=== PATIENT | male | born 1945 | race Hispanic/Latino ===

== ENCOUNTER 2018-06-02 19:33 | Emergency (ER) | payer OTHER ==
--- OUTSIDE RECORDS SUMMARY | 2018-06-02 19:35 | XMS REPORT ---
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 Problem Osteoarthritis, multiple sites M15.9 Active Problem Glaucoma H40.9 Active Problem Tinea unguium B35.1 Active Assessment Need for TD vaccine Z23 Active Problem Sexual dysfunction R37 Active Problem Hyperglycemia R73.9 Active Assessment Puncture wound of right foot, S91.331A Active initial encounter Problem Hypertension I10 Active Problem Essential hypertriglyceridemia E78.1 Active Medications Medication Code Code Instructions Start End Status Dosage System Date Date Clobetasol [facility] 72018685545 0.05 % Active 1 application Propionate Externally to affected Twice a day area Clotrimazole [facility] 86966092799 1 % Externally Active 1 application Twice a day to affected area Cozaar [facility] 13857694055 100 MG Orally Active 1 tablet Once a day Amlodipine [facility] 05937687412 2.5 MG Orally Feb 03, Active 1 tablet Besylate Once a day at 2018 bedtime Results No Known Results Immunizations Vaccine Administration Date Td Feb 22, 2018 Summary Purpose eClinicalWorks Submission
--- OUTSIDE RECORDS SUMMARY | 2018-06-02 19:35 | XMS REPORT ---
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 Problem Elevated serum globulin level R77.1 Active Problem Psoriasis L40.9 Active Assessment Elevated serum globulin level R77.1 Active Problem Cataract H26.9 Active Assessment Seasonal allergic rhinitis, J30.2 Active unspecified trigger Problem Dermatitis L30.9 Active Problem 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 Problem Osteoarthritis, multiple sites M15.9 Active Problem Glaucoma H40.9 Active Problem Tinea unguium B35.1 Active Assessment Psoriasis L40.9 Active Assessment Hypertension I10 Active Assessment (QFT) 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 Assessment Dermatitis L30.9 Active Problem Sexual dysfunction R37 Active Problem Hyperglycemia R73.9 Active Assessment Essential hypertriglyceridemia E78.1 Active Problem Hypertension I10 Active Problem Essential hypertriglyceridemia E78.1 Active Medications Medication Code Code Instructions Start End Status Dosage System Date Date Clobetasol [facility] 35954753118 0.05 % Active 1 application Propionate Externally to affected Twice a day area Cozaar [facility] 55578008691 100 MG Orally Active 1 tablet Once a day Clotrimazole [facility] 54260055670 1 % Externally Active 1 application Twice a day to affected area Amlodipine [facility] 65660880061 2.5 MG Orally Feb 03, Active 1 tablet Besylate Once a day at 2018 bedtime Results No Known Results Summary Purpose eClinicalWorks Submission
--- NOTE | 2018-06-02 20:56 | RAD REPORT ---
EXAM DESCRIPTION: Nate Donahue (2 Views)06/02/2018 8:31 pm CLINICAL HISTORY: Cough COMPARISON: May 2017 FINDINGS: The lungs appear clear of acute infiltrate. The heart is normal size IMPRESSION: No acute abnormalities displayed
--- NOTE | 2018-06-02 20:57 | EDPHYS ---
Physician Documentation [facility] Name: Socorro Ren Age: 72 yrs Sex: Male : 1945 Arrival Date: 06/02/2018 Time: 19:37 Bed 14 Private MD: Stefanie Gross ED Physician Bryan Truong HPI: 06/02 20:47 This 72 yrs old Male presents to ER via Ambulatory with complaints of Fever, snw Chest Congestion, Cough. 20:47 The patient reports fever, not measured (subjective). Onset: The symptoms/episode snw began/occurred gradually, 1 week(s) ago. Modifying factors: there are no obvious modifying factors. Associated signs and symptoms: Pertinent positives: cough, that is dry. Severity of symptoms: At their worst the symptoms were moderate. The patient has not experienced similar symptoms in the past. It is unknown whether or not the patient has recently seen a physician. Historical: - Allergies: 20:07 No Known Allergies; aj - Home Meds: 20:07 amlodipine 5 mg tab 1 tab once daily [Active]; losartan 50 mg Oral tab 1 tab once daily aj [Active]; - PMHx: 20:07 Hypertension; Glaucoma; aj - PSHx: 20:07 Cholecystectomy; aj - Immunization history:: Adult Immunizations up to date. - Social history:: Smoking status: Patient/guardian denies using tobacco. - Ebola Screening: : Patient negative for fever greater than or equal to 101.5 degrees Fahrenheit, and additional compatible Ebola Virus Disease symptoms Patient denies exposure to infectious person Patient denies travel to an Ebola-affected area in the 21 days before illness onset No symptoms or risks identified at this time. ROS: 20:46 Eyes: Negative for injury, pain, redness, and discharge, ENT: Negative for injury, snw pain, and discharge, Neck: Negative for injury, pain, and swelling, Cardiovascular: Negative for chest pain, palpitations, and edema. 20:46 Abdomen/GI: Negative for abdominal pain, nausea, vomiting, diarrhea, and constipation, Back: Negative for injury and pain, : Negative for injury, bleeding, discharge, and swelling, MS/Extremity: Negative for injury and deformity, Skin: Negative for injury, rash, and discoloration, Neuro: Negative for headache, weakness, numbness, tingling, and seizure, Psych: Negative for depression, anxiety, suicide ideation, homicidal ideation, and hallucinations. 20:46 Constitutional: Positive for fever. 20:46 Respiratory: Positive for cough, with no reported sputum. Exam: 20:45 Head/Face: Normocephalic, atraumatic. Eyes: Pupils equal round and reactive to light, snw extra-ocular motions intact. Lids and lashes normal. Conjunctiva and sclera are non-icteric and not injected. Cornea within normal limits. Periorbital areas with no swelling, redness, or edema. 20:45 Neck: Trachea midline, no thyromegaly or masses palpated, and no cervical lymphadenopathy. Supple, full range of motion without nuchal rigidity, or vertebral point tenderness. No Meningismus. Chest/axilla: Normal chest wall appearance and motion. Nontender with no deformity. No lesions are appreciated. Cardiovascular: Regular rate and rhythm with a normal S1 and S2. No gallops, murmurs, or rubs. Normal PMI, no JVD. No pulse deficits. 20:45 Abdomen/GI: Soft, non-tender, with normal bowel sounds. No distension or tympany. No guarding or rebound. No evidence of tenderness throughout. Back: No spinal tenderness. No costovertebral tenderness. Full range of motion. MS/ Extremity: Pulses equal, no cyanosis. Neurovascular intact. Full, normal range of motion. Neuro: Awake and alert, GCS 15, oriented to person, place, time, and situation. Cranial nerves II-XII grossly intact. Motor strength 5/5 in all extremities. Sensory grossly intact. Cerebellar exam normal. Normal gait. Psych: Awake, alert, with orientation to person, place and time. Behavior, mood, and affect are within normal limits. 20:45 Constitutional: The patient appears alert, awake, uncomfortable. 20:45 ENT: TM's: are normal, Nose: is normal, Mouth: is normal, Voice: is normal. 20:45 Respiratory: the patient does not display signs of respiratory distress, Respirations: normal, Breath sounds: are clear throughout. 20:45 Skin: Appearance: Color: normal in color, Temperature: normal temperature, Moisture: dry. Vital Signs: 20:07 BP 150 / 76; Pulse 91; Resp 19; Temp 98.7(O); Pulse Ox 97% on R/A; Weight 83.46 kg; aj Height 5 ft. 6 in. (167.64 cm); 21:11 BP 156 / 79; Pulse 89; Resp 18 S; Pulse Ox 97% on R/A; cc3 20:07 Body Mass Index 29.70 (83.46 kg, 167.64 cm) aj MDM: 20:24 Patient medically screened. snw 20:51 Data reviewed: vital signs, nurses notes. Data interpreted: Pulse oximetry: on room air snw is 97 %. Interpretation: normal. Counseling: I had a detailed discussion with the patient and/or guardian regarding: the historical points, exam findings, and any diagnostic results supporting the discharge/admit diagnosis, the presence of at least one elevated blood pressure reading (>120/80) during this emergency department visit, lab results, radiology results, the need for outpatient follow up, to return to the emergency department if symptoms worsen or persist or if there are any questions or concerns that arise at home. Special discussion: I have referred the patient to see his PCP for further evaluation of high blood pressure. Based on the history and exam findings, there is no indication for further emergent testing or inpatient evaluation. I discussed with the patient/guardian the need to see the primary care provider for further evaluation of the symptoms. 20:52 ED course: fibrotic changes on X-ray with blunting of costophrenic angle. [facility] 06/02 19:57 Order name: Flu; Complete Time: 20:51 [facility] 06/02 20:05 Order name: Strep; Complete Time: 20:51 06/02 20:08 Order name: Chest Pa And Lat (2 Views) XRAY; Complete Time: 20:58 06/02 20:51 Order name: Throat Culture EDMS Administered Medications: 20:50 Drug: Tussionex Pennkinetic ER 5 ml Route: PO; cc3 21:20 Follow up: Response: No adverse reaction cc3 21:05 Drug: Rocephin (cefTRIAXone) 1 grams Route: IM; Site: right gluteus; cc3 21:20 Follow up: Response: No adverse reaction cc3 Disposition: 06/03 04:08 Co-signature as Attending Physician, Bryan Truong MD. Disposition: 06/02/18 20:56 Discharged to Home. Impression: Fever presenting with conditions classified elsewhere, Bronchitis, not specified as acute or chronic. - Condition is Stable. - Discharge Instructions: Acute Bronchitis, Adult, Fever, Adult, Hypertension, Cough, Adult. - Prescriptions for Levaquin 500 mg Oral Tablet - take 1 tablet by ORAL route once daily for 10 days; 10 tablet. - Medication Reconciliation Form, Thank You Letter, Antibiotic Education, Prescription Opioid Use form. - Follow up: Stefanie Gross MD; When: 2 - 3 days; Reason: Recheck today's complaints, Continuance of care, Re-evaluation by your physician. Follow up: Emergency Department; When: As needed; Reason: Trouble breathing, Worsening of condition. Signatures: Dispatcher [employer] EDBlanche Grace RN RN aj Therrien, Shelly, DERRICK ENGINEER-C DERRICK ENGINEER-Csnw Bryan Truong MD MD gs Cordel, Charlene cc3 Corrections: (The following items were deleted from the chart) 06/02 21:22 20:57 06/02/2018 20:56 Discharged to Home. Impression: Fever presenting with conditions cc3 classified elsewhere; Bronchitis, not specified as acute or chronic. Condition is Stable. Forms are Medication Reconciliation Form, Thank You Letter, Antibiotic Education, Prescription Opioid Use. Follow up: Stefanie Gross; When: 2 - 3 days; Reason: Recheck today's complaints, Continuance of care, Re-evaluation by your physician. Follow up: Emergency Department; When: As needed; Reason: Trouble breathing, Worsening of condition. snw
--- NOTE | 2018-06-02 20:57 | ER ---
Nurse's Notes [facility] Name: Socorro Ren Age: 72 yrs Sex: Male : 1945 Arrival Date: 06/02/2018 Time: 19:37 Bed 14 Private MD: Stefanie Gross Diagnosis: Fever presenting with conditions classified elsewhere;Bronchitis, not specified as acute or chronic Presentation: 06/02 20:04 Presenting complaint: Patient states: Cough and congestion with fever since Wednesday. aj Transition of care: patient was not received from another setting of care. Onset of symptoms was May 28, 2018. 20:04 Method Of Arrival: Ambulatory aj 20:05 Risk Assessment: Do you want to hurt yourself or someone else? Patient reports no aj desire to harm self or others. Initial Sepsis Screen: Does the patient meet any 2 criteria? No. Patient's initial sepsis screen is negative. Does the patient have a suspected source of infection? No. Patient's initial sepsis screen is negative. Care prior to arrival: None. 20:05 Acuity: MAREK 3 aj Triage Assessment: 20:07 General: Appears in no apparent distress. comfortable, Behavior is calm, cooperative, aj appropriate for age. Pain: Denies pain. EENT: Reports nasal congestion nasal discharge. EENT: Reports pain when swallowing. Neuro: Level of Consciousness is awake, alert, obeys commands, Oriented to person, place, time, situation, Appropriate for age. Respiratory: Reports cough that is pain with cough Airway is patent Respiratory effort is even, unlabored, Respiratory pattern is regular, symmetrical. Derm: Skin is intact, is healthy with good turgor, Skin is pink, warm \T\ dry. normal. Historical: - Allergies: 20:07 No Known Allergies; aj - Home Meds: 20:07 amlodipine 5 mg tab 1 tab once daily [Active]; losartan 50 mg Oral tab 1 tab once daily aj [Active]; - PMHx: 20:07 Hypertension; Glaucoma; aj - PSHx: 20:07 Cholecystectomy; aj - Immunization history:: Adult Immunizations up to date. - Social history:: Smoking status: Patient/guardian denies using tobacco. - Ebola Screening: : Patient negative for fever greater than or equal to 101.5 degrees Fahrenheit, and additional compatible Ebola Virus Disease symptoms Patient denies exposure to infectious person Patient denies travel to an Ebola-affected area in the 21 days before illness onset No symptoms or risks identified at this time. Screenin:15 Abuse screen: Denies threats or abuse. Denies injuries from another. Nutritional cc3 screening: No deficits noted. Tuberculosis screening: No symptoms or risk factors identified. Fall Risk Ambulatory Aid- None/Bed Rest/Nurse Assist (0 pts). Gait- Normal/Bed Rest/Wheelchair (0 pts) Mental Status- Oriented to own ability (0 pts). Assessment: 20:15 General: see triage assessment. cc3 21:20 Reassessment: Patient appears in no apparent distress at this time. Patient and/or cc3 family updated on plan of care and expected duration. Pain level reassessed. Patient is alert, oriented x 3, equal unlabored respirations, skin warm/dry/pink. LUCI Cohen discharged the patient home with prescription given. No IV cannula in situ. Patient left ER vitally stable and ambulatory with family. Vital Signs: 20:07 BP 150 / 76; Pulse 91; Resp 19; Temp 98.7(O); Pulse Ox 97% on R/A; Weight 83.46 kg; aj Height 5 ft. 6 in. (167.64 cm); 21:11 BP 156 / 79; Pulse 89; Resp 18 S; Pulse Ox 97% on R/A; cc3 20:07 Body Mass Index 29.70 (83.46 kg, 167.64 cm) aj ED Course: 19:37 Patient arrived in ED. am2 19:37 Stefanie Gross MD is Private Physician. am2 20:05 Triage completed. aj 20:07 Arm band placed on left wrist. Patient placed in waiting room, Patient notified of wait aj time. Labs ordered per protocol. 20:15 Yolie Doe is Primary Nurse. cc3 20:15 Patient has correct armband on for positive identification. Bed in low position. Call cc3 light in reach. Side rails up X 1. Pulse ox on. NIBP on. 20:19 Strep Sent. mw2 20:19 Flu Sent. mw2 20:24 Vicki Meng FNP-C [facility]. snw 20:24 Bryan Truong MD is Attending Physician. snw 20:29 Chest Pa And Lat (2 Views) XRAY Sent. jd3 20:30 Chest Pa And Lat (2 Views) XRAY In Process Unspecified. EDMS 20:52 Throat Culture Sent. jd3 20:56 Stefanie Gross MD is Referral Physician. snw 21:20 No provider procedures requiring assistance completed. Patient did not have IV access cc3 during this emergency room visit. Administered Medications: 20:50 Drug: Tussionex Pennkinetic ER 5 ml Route: PO; cc3 21:20 Follow up: Response: No adverse reaction cc3 21:05 Drug: Rocephin (cefTRIAXone) 1 grams Route: IM; Site: right gluteus; cc3 21:20 Follow up: Response: No adverse reaction cc3 Outcome: 20:56 Discharge ordered by MD. snw 21:20 Discharged to home ambulatory, with family. cc3 21:20 Condition: stable 21:20 Discharge instructions given to patient, family, Instructed on discharge instructions, follow up and referral plans. medication usage, Demonstrated understanding of instructions, follow-up care, medications, Prescriptions given X 1. 21:22 Patient left the ED. cc3 Signatures: Dispatcher [employer] Blanche Wilkes, RN RN Vicki Arana, STOGY MAKER-C STOGY MAKER-Csnw Blanche Gonzales amCristian Gorman RN RN Claudia Parish 2 Yolie Doe cc3
[2018-06-02] MEDS ORDERED: HYDROCODONE/CHLORPHEN 5 ML/OSYR ONE (21:02)
[2018-06-02] MEDS ORDERED: CEFTRIAXONE 1000 MG/VIAL ONE (21:10)
[2018-06-02] MEDS ORDERED: WATER FOR INJ,STERILE 10 ML ONE (21:11)
== END 2018-06-02 21:22 | disposition home or self-care (01) ==
LOC: ER 19:33
DX: J40 Bronchitis, not specified as acute or chronic (principal); I10 Essential (primary) hypertension
CPT/HCPCS: 71046; 87070; 87081; 87804; 96372; 99284

== ENCOUNTER 2019-04-17 10:04 | Emergency (ER) | payer OTHER ==
--- NOTE | 2019-04-17 10:52 | RAD REPORT ---
EXAM DESCRIPTION: RAD - Chest Single View - 04/17/2019 10:36 am CLINICAL HISTORY: COUGH Chest pain. COMPARISON: Chest Pa And Lat (2 Views) dated 06/02/2018; Chest Pa And Lat (2 Views) dated 05/18/2017 ; CHEST SINGLE VIEW dated 02/27/2008 FINDINGS: Portable technique limits examination quality. The lungs are grossly clear. The heart is normal in size. No displaced fractures. IMPRESSION: No acute intrathoracic process suspected.
[2019-04-17 11:23] LABS: Absolute Lymphocytes (CBC) 3.4 K/uL (0.7-4.9); Basophils % 0.5 % (0-1.3); Hematocrit 44.8 % (39.6-49.0); Lymphocytes % 37.5 % (15.3-44.8); RBC Red Blood Cell Count 4.85 M/uL (4.33-5.43)
[2019-04-17 11:31] LABS: Urine Blood TRACE (NEG); Urine Glucose NEGATIVE (NEG); Urine Protein NEGATIVE (NEG); Urine Specific Gravity 1.015 (1.005-1.030)
[2019-04-17 11:31] LABS: ALT/SGPT 25 U/L (12-78); AST/SGOT 12 U/L (15-37); Alkaline Phosphatase 99 U/L (45-117); BUN Blood Urea Nitrogen 9 mg/dL (7-18); Bicarbonate 27 mmol/L (21-32); Bilirubin Direct 0.2 mg/dL (0-0.2); Bilirubin Total 0.9 mg/dL (0.2-1.0); Glucose Level 96 mg/dL (74-106); Lipase 81 U/L (73-393); Magnesium 2.4 mg/dL (1.8-2.4); NT PRO-BNP 16 pg/mL (<125); Potassium 3.7 mmol/L (3.5-5.1); Protein, Total 8.6 g/dL (6.4-8.2); Sodium Level 140 mmol/L (136-145); Troponin (Emerg Dept Use Only) < 0.02 ng/mL (0.0-0.045)
[2019-04-17] MEDS ORDERED: NA CHLORIDE 0.9% 1,000 ML ONE (11:44)
[2019-04-17] MEDS ORDERED: FOLIC ACID 5 MG/ML VIAL ONE (11:44)
[2019-04-17] MEDS ORDERED: ASPIRIN 81 MG CHEWABLE TABLET ONE (11:44)
[2019-04-17 12:12] LABS: Protime INR 1.05
--- NOTE | 2019-04-17 12:34 | RAD REPORT ---
EXAM DESCRIPTION: US - CP - 04/17/2019 12:26 pm CLINICAL HISTORY: DIZZINESS Headache, drowsiness, syncope COMPARISON: No comparisons TECHNIQUE: Real-time sonographic evaluation of both carotid systems was performed. Doppler interroga tion was performed with waveform tracing bilaterally. FINDINGS: Normal high resistance waveforms are noted in both external carotid arteries. The common c arotid arteries and internal carotid arteries show normal low resistance waveforms. Lyfn-rv-clhpyjud soft plaquing is seen in both carotid bulbs. Peak systolic and end diastolic velocit y values and the ICA/CCA ratios are in the non-hemodynamically significant range. Antegrade flow seen in both vertebral arteries. IMPRESSION: Rahz-ro-jdihyvoa soft plaquing is seen in both carotid bulbs. No evidence of a hemodynamically significant stenosis.
--- NOTE | 2019-04-17 13:01 | RAD REPORT ---
EXAM DESCRIPTION: MRI - Brain Wo Cont - 04/17/2019 12:55 pm CLINICAL HISTORY: DIZZINESS, weakness, possible CVA COMPARISON: None. TECHNIQUE: Sagittal T1-weighted images were obtained along with axial PD, heavily T2-weighted and T2 -FLAIR images. Axial DWI and ADC mapping sequences were also obtained along with coronal heavily T2-w eighted images. FINDINGS: No intracranial hemorrhage, mass or acute infarction. There is no edema or shift of midlin e structures. No extra-axial fluid collections. Garza-matter/white matter junction is preserved. Signa l voids are seen as a normal finding in the major intracranial vessels. Patient has mild to moderate atrophy. Ventricles are in proportion to any volume loss. Minimal chroni c ischemic changes seen in the cerebral white matter. Basal ganglia, thalamus and brainstem tissue sp ared any measurable disease. No sella or supra sella abnormality. No globe or orbital content acute finding. Mastoid air cells and paranasal sinuses are clear. IMPRESSION: No infarction or other acute intracranial finding. Atrophy and chronic ischemic changes are present. Ventricles are in proportion.
--- NOTE | 2019-04-17 13:27 | RAD REPORT ---
EXAM DESCRIPTION: CT - Chest For Pe Angio - 04/17/2019 1:03 pm CLINICAL HISTORY: DYSPNEA COMPARISON: Chest Single View dated 04/17/2019 TECHNIQUE: Dynamically enhanced 3 mm thick images of the chest were obtained during administration o f approximately 150mL Isovue 370 IV contrast. Coronal and oblique MIP reconstruction images were gene rated and reviewed. Exam utilizes a protocol to evaluate the pulmonary arterial tree. All CT scans are performed using dose optimization technique as appropriate and may include automated exposure control or mA/KV adjustment according to patient size. FINDINGS: No pulmonary emboli are identified. The aorta as imaged shows no acute or suspicious finding. No pericardial thickening or effusion. A small 5 millimeter nodule is present in the lower right lung field (image 44/97). No specific follo w-up recommendation is made if the patient is considered low risk for cancer. The patient is high ris k, a 12 month follow-up could be performed. No other mass or nodule seen. No acute infiltrate. No ple ural effusion or pleural thickening. No mediastinal or hilar suspicious masses. No chest wall masses or abnormal axillary lymphadenopathy. Disc and bony degenerative change present. No acute bone process. IMPRESSION: No pulmonary emboli identified. A small 5 mm pulmonary nodule is seen in the lower right lung field. Follow-up is considered optional for a low risk patient. For a high cancer risk patient, a 12 month follow-up could be performed.
--- NOTE | 2019-04-17 15:21 | EDPHYS ---
Physician Documentation [facility] Name: Socorro Ren Age: 73 yrs Sex: Male : 1945 Arrival Date: 04/17/2019 Time: 10:07 Bed 23 Private MD: Stefanie Gross ED Physician Sergio Fair HPI: 04/17 11:18 This 73 yrs old Male presents to ER via Ambulatory with complaints of Doesn't julio Feel Right. 11:18 The patient has shortness of breath at rest, with light activity. Onset: The julio symptoms/episode began/occurred 2 day(s) ago. Duration: The symptoms are intermittent, with episodes lasting seconds at a time. The patient's shortness of breath has no apparent modifying factors. The patient or guardian reports chest pain that is located primarily in the none. Onset: 2 day(s) ago. The pain does not radiate. Associated signs and symptoms: The patient has no apparent associated signs or symptoms. Severity of symptoms: At their worst the symptoms were mild in the emergency department the symptoms are unchanged. Historical: - Allergies: 10:13 No Known Allergies; bp - Home Meds: 10:13 amlodipine 5 mg tab 1 tab once daily [Active]; losartan 50 mg Oral tab 1 tab once daily bp [Active]; - PMHx: 10:13 Glaucoma; Hypertension; bp - Immunization history:: Adult Immunizations up to date. - Social history:: Smoking status: Patient/guardian denies using tobacco. - Ebola Screening: : No symptoms or risks identified at this time. - Family history:: not pertinent. ROS: 11:19 Constitutional: Negative for fever, chills, and weight loss, Eyes: Negative for injury, julio pain, redness, and discharge, ENT: Negative for injury, pain, and discharge, Neck: Negative for injury, pain, and swelling, Cardiovascular: Negative for chest pain, palpitations, and edema, Abdomen/GI: Negative for abdominal pain, nausea, vomiting, diarrhea, and constipation, Back: Negative for injury and pain, : Negative for injury, bleeding, discharge, and swelling, MS/Extremity: Negative for injury and deformity, Skin: Negative for injury, rash, and discoloration, Neuro: Negative for headache, weakness, numbness, tingling, and seizure, Psych: Negative for depression, anxiety, suicide ideation, homicidal ideation, and hallucinations, Allergy/Immunology: Negative for hives, rash, and allergies, Endocrine: Negative for neck swelling, polydipsia, polyuria, polyphagia, and marked weight changes, Hematologic/Lymphatic: Negative for swollen nodes, abnormal bleeding, and unusual bruising. 11:19 Respiratory: Positive for shortness of breath, at rest. Exam: 11:19 Constitutional: This is a well developed, well nourished patient who is awake, alert, julio and in no acute distress. Head/Face: Normocephalic, atraumatic. Eyes: Pupils equal round and reactive to light, extra-ocular motions intact. Lids and lashes normal. Conjunctiva and sclera are non-icteric and not injected. Cornea within normal limits. Periorbital areas with no swelling, redness, or edema. ENT: Nares patent. No nasal discharge, no septal abnormalities noted. Tympanic membranes are normal and external auditory canals are clear. Oropharynx with no redness, swelling, or masses, exudates, or evidence of obstruction, uvula midline. Mucous membranes moist. Neck: Trachea midline, no thyromegaly or masses palpated, and no cervical lymphadenopathy. Supple, full range of motion without nuchal rigidity, or vertebral point tenderness. No Meningismus. Chest/axilla: Normal chest wall appearance and motion. Nontender with no deformity. No lesions are appreciated. Cardiovascular: Regular rate and rhythm with a normal S1 and S2. No gallops, murmurs, or rubs. Normal PMI, no JVD. No pulse deficits. Respiratory: Lungs have equal breath sounds bilaterally, clear to auscultation and percussion. No rales, rhonchi or wheezes noted. No increased work of breathing, no retractions or nasal flaring. Abdomen/GI: Soft, non-tender, with normal bowel sounds. No distension or tympany. No guarding or rebound. No evidence of tenderness throughout. Back: No spinal tenderness. No costovertebral tenderness. Full range of motion. Male : Normal genitalia with no discharge or lesions. Skin: Warm, dry with normal turgor. Normal color with no rashes, no lesions, and no evidence of cellulitis. MS/ Extremity: Pulses equal, no cyanosis. Neurovascular intact. Full, normal range of motion. Neuro: Awake and alert, GCS 15, oriented to person, place, time, and situation. Cranial nerves II-XII grossly intact. Motor strength 5/5 in all extremities. Sensory grossly intact. Cerebellar exam normal. Normal gait. Psych: Awake, alert, with orientation to person, place and time. Behavior, mood, and affect are within normal limits. Vital Signs: 10:13 BP 154 / 77; Pulse 85; Resp 18; Temp 97.6; Pulse Ox 99% ; Weight 81.65 kg; bp 11:34 BP 129 / 74; Pulse 81; Resp 18; Pulse Ox 98% on R/A; aj1 12:30 BP 140 / 77; Pulse 71; Resp 18; Pulse Ox 97% on R/A; aj1 13:30 BP 142 / 85; Pulse 82; Resp 18; Pulse Ox 97% on R/A; aj1 14:14 Pulse 72; Resp 18; Pulse Ox 98% on R/A; aj1 15:01 BP 126 / 90; Pulse 81; Resp 16; Temp 97.7(O); Pulse Ox 100% ; lt1 NIH Stroke Scale Scores: 11:19 NIHSS Score: 0 julio MDM: 10:19 Patient medically screened. julio 11:21 Data reviewed: vital signs, nurses notes, lab test result(s), EKG, radiologic studies, julio doppler, MRI, plain films. 04/17 10:20 Order name: Basic Metabolic Panel; Complete Time: 12:18 [facility] 04/17 10:20 Order name: CBC with Diff; Complete Time: 12:18 [facility] 04/17 10:20 Order name: LFT's; Complete Time: 12:18 julio 04/17 10:20 Order name: Magnesium; Complete Time: 12:18 julio 04/17 10:20 Order name: NT PRO-BNP; Complete Time: 12:18 [facility] 04/17 10:20 Order name: PT-INR; Complete Time: 12:18 [facility] 04/17 10:20 Order name: Troponin (emerg Dept Use Only); Complete Time: 12:18 julio 04/17 10:20 Order name: Urine Culture [facility] 04/17 10:20 Order name: Lipase; Complete Time: 12:18 julio 04/17 11:12 Order name: D-Dimer; Complete Time: 12:18 julio 04/17 11:13 Order name: Add On-Lab ss 04/17 11:15 Order name: Urine Dipstick--Ancillary (enter results) 04/17 12:20 Order name: Troponin (emerg Dept Use Only): please at 1pm; Complete Time: 15:19 [facility] 04/17 10:20 Order name: XRAY Chest (1 view); Complete Time: 12:18 [facility] 04/17 10:20 Order name: EKG; Complete Time: 10:21 [facility] 04/17 10:20 Order name: Cardiac monitoring; Complete Time: 10:21 [facility] 04/17 10:20 Order name: EKG - Nurse/Tech; Complete Time: 11:35 [facility] 04/17 10:20 Order name: IV Saline Lock; Complete Time: 11:35 [facility] 04/17 10:20 Order name: Labs collected and sent; Complete Time: 11:36 [facility] 04/17 10:20 Order name: O2 Per Protocol; Complete Time: 10:21 [facility] 04/17 11:22 Order name: US Carotid Artery Bilateral; Complete Time: 13:29 [facility] 04/17 11:30 Order name: Brain Wo Cont; Complete Time: 13:29 EDMS 04/17 12:20 Order name: CT Chest For PE Angio; Complete Time: 13:53 [facility] 04/17 10:20 Order name: O2 Sat Monitoring; Complete Time: 10:21 [facility] 04/17 10:20 Order name: Urine Dipstick-Ancillary (obtain specimen); Complete Time: 11:35 [facility] Administered Medications: 11:52 Drug: NS 0.9% 500 ml Route: IV; Rate: bolus; Site: right forearm; 15:31 Follow up: IV Status: Completed infusion; IV Intake: 500ml 11:52 Drug: Aspirin Chewable Tablet 162 mg Route: PO; 15:31 Follow up: Response: No adverse reaction 11:53 Drug: NS 0.9% 1000 ml Route: IV; Rate: 125 ml/hr; Site: left forearm; 15:30 Follow up: IV Status: Completed infusion; IV Intake: 300ml 11:53 Drug: foLIC Acid 1 mg Route: IVPB; Site: left forearm; 15:31 Follow up: IV Status: Completed infusion; IV Intake: 500ml 15:31 Follow up: IV Status: Completed infusion 13:28 Drug: NS 0.9% 500 ml Route: IV; Rate: bolus; Site: left forearm; aj1 Disposition: 04/17/19 15:20 Discharged to Home. Impression: Dyspnea, Weakness, Solitary pulmonary nodule. - Condition is Stable. - Discharge Instructions: Weakness, Weakness, Noym-kw-Xopy, Aspirin and Your Heart, Pulmonary Nodule, Pulmonary Nodule, [id number]-[id number]. - Prescriptions for Folic Acid 1 mg Oral Tablet - take 1 tablet by ORAL route once daily; 30 tablet. - Medication Reconciliation Form, Thank You Letter, Antibiotic Education, Prescription Opioid Use form. - Follow up: Stefanie Gross; When: 2 - 3 days; Reason: Recheck today's complaints, Continuance of care, Re-evaluation by your physician. - Problem is new. - Symptoms have improved. NIH Stroke Scale - NIH Stroke Score Date: 04/17/2019 Time: 11:19 Total Score = 0 1a. Level of Consciousness (LOC) - 0(Alert) 1b. Level of Consciousness (LOC) (Year \T\ Age) - 0(Both) 1c. LOC Commands (Open \T\ Closes Eyes/Mental Telepathist) - 0(Both) 2. Best Gaze (Lateral Gaze Paresis) - 0(Normal) 3. Visual Field Loss - 0(No visual loss) 4. Facial Palsy - 0(Normal) 5a. Left Arm: Motor (10-second hold) - 0(No drift) 5b. Right Arm: Motor (10-second hold) - 0(No drift) 6a. Left Leg: Motor (5-second hold - always test supine) - 0(No drift) 6b. Right Leg: Motor (5-second hold - always test supine) - 0(No drift) 7. Limb Ataxia (finger/nose \T\ heel/stephens - test with eyes open) - 0(Absent) 8. Sensory Loss (pinprick arms/legs/face) - 0(Normal) 9. Best Language: Aphasia (description/naming/reading) - 0(No aphasia) 10. Dysarthria (speech clarity - read or repeat words) - 0(Normal) 11. Extinction and Inattention (visual/tactile/auditory/spatial/personal) - 0(No abnormality) Initials: julio Signatures: Dispatcher [employer] Cornelia Benoit RN RN aj1 Marv, Sergio, MD MD julio Corrie, Emeka, RN RN bp Corrections: (The following items were deleted from the chart) 11:30 11:23 MR STROKE PROTOCOL+MRI.RAD.AMANDAZ ordered. EDVT EDMS 16:18 15:20 04/17/2019 15:20 Discharged to Home. Impression: Dyspnea; Weakness; aj1 Solitary pulmonary nodule. Condition is Stable. Discharge Instructions: Weakness, Weakness, Howx-hq-Tgso, Aspirin and Your Heart, Pulmonary Nodule, Pulmonary Nodule, Kygy-lj-Dpiy. Prescriptions for Folic Acid 1 mg Oral Tablet - take 1 tablet by ORAL route once daily; 30 tablet. and Forms are Medication Reconciliation Form, Thank You Letter, Antibiotic Education, Prescription Opioid Use. Follow up: Stefanie Gross; When: 2 - 3 days; Reason: Recheck today's complaints, Continuance of care, Re-evaluation by your physician. Problem is new. Symptoms have improved. julio
--- NOTE | 2019-04-17 15:21 | ER ---
Nurse's Notes [facility] Name: Socorro Ren Age: 73 yrs Sex: Male : 1945 Arrival Date: 04/17/2019 Time: 10:07 Bed 23 Private MD: Stefanie Gross Diagnosis: Dyspnea;Weakness;Solitary pulmonary nodule Presentation: 04/17 10:11 Presenting complaint: Patient states: DIZZINESS AND NAUSEA SINCE 0300. Transition of bp care: patient was not received from another setting of care. Onset of symptoms was April 17, 2019 at 03:00. Risk Assessment: Do you want to hurt yourself or someone else? Patient reports no desire to harm self or others. Initial Sepsis Screen: Does the patient meet any 2 criteria? No. Patient's initial sepsis screen is negative. Does the patient have a suspected source of infection? No. Patient's initial sepsis screen is negative. Care prior to arrival: None. 10:11 Method Of Arrival: Ambulatory bp 10:11 Acuity: MAREK 3 bp Historical: - Allergies: 10:13 No Known Allergies; bp - Home Meds: 10:13 amlodipine 5 mg tab 1 tab once daily [Active]; losartan 50 mg Oral tab 1 tab once daily bp [Active]; - PMHx: 10:13 Glaucoma; Hypertension; bp - Immunization history:: Adult Immunizations up to date. - Social history:: Smoking status: Patient/guardian denies using tobacco. - Ebola Screening: : No symptoms or risks identified at this time. - Family history:: not pertinent. Screenin:23 Abuse screen: Denies threats or abuse. Denies injuries from another. Nutritional aj1 screening: No deficits noted. Tuberculosis screening: No symptoms or risk factors identified. 16:17 Fall Risk None identified. aj1 Assessment: 10:23 General: Appears in no apparent distress. comfortable, Behavior is calm, cooperative, aj1 appropriate for age. Pain: Denies pain. Neuro: Level of Consciousness is awake, alert, obeys commands, Oriented to person, place, time, situation, Automation Qa Lead are equal bilaterally Moves all extremities. Full function Gait is steady, Speech is normal, Facial symmetry appears normal, Reports numbness in left arm that occurred at approximately 0300 this morning and has since resolved. Cardiovascular: Reports nausea, shortness of breath, Denies chest pain, Heart tones S1 S2 present Patient's skin is warm and dry. Rhythm is sinus rhythm. Respiratory: Reports shortness of breath that woke him up at 0300 this morning, that has now resolved. Denies SOB at this time. Denies chest pain, denies dizziness Airway is patent Respiratory effort is even, unlabored, Respiratory pattern is regular, symmetrical. GI: No signs and/or symptoms were reported involving the gastrointestinal system. : No signs and/or symptoms were reported regarding the genitourinary system. EENT: No signs and/or symptoms were reported regarding the EENT system. Derm: No signs and/or symptoms reported regarding the dermatologic system. Skin is pink, warm \T\ dry. normal. Musculoskeletal: No signs and/or symptoms reported regarding the musculoskeletal system. Circulation, motion, and sensation intact. 11:34 Reassessment: Patient appears in no apparent distress at this time. No changes from aj1 previously documented assessment. Patient and/or family updated on plan of care and expected duration. Pain level reassessed. Patient is alert, oriented x 3, equal unlabored respirations, skin warm/dry/pink. 12:00 Reassessment: Patient transported to CT. aj1 12:15 Reassessment: Dr. Fair notified of critical lab value. DDIMER 620. ss 12:58 Reassessment: Patient returned to room. aj1 13:00 Reassessment: Patient and/or family updated on plan of care and expected duration. Pain aj1 level reassessed. General: Appears in no apparent distress. comfortable, Behavior is calm, cooperative, appropriate for age. Neuro: Level of Consciousness is awake, alert, obeys commands, Oriented to person, place, time, situation, Speech is normal, Facial symmetry appears normal. Cardiovascular: Heart tones S1 S2 present Patient's skin is warm and dry. Rhythm is sinus rhythm. Respiratory: Airway is patent Respiratory effort is even, unlabored, Respiratory pattern is regular, symmetrical. Derm: No signs and/or symptoms reported regarding the dermatologic system. Skin is pink, warm \T\ dry. normal. Musculoskeletal: No signs and/or symptoms reported regarding the musculoskeletal system. Circulation, motion, and sensation intact. 14:00 Reassessment: Patient appears in no apparent distress at this time. No changes from aj1 previously documented assessment. Patient and/or family updated on plan of care and expected duration. Pain level reassessed. Patient is alert, oriented x 3, equal unlabored respirations, skin warm/dry/pink. 15:14 Reassessment: Patient and/or family updated on plan of care and expected duration. Pain aj1 level reassessed. General: Appears in no apparent distress. comfortable, Behavior is calm, cooperative, appropriate for age. Neuro: Level of Consciousness is awake, alert, obeys commands, Oriented to person, place, time, situation, Automation Qa Lead are equal bilaterally Moves all extremities. Full function Speech is normal, Facial symmetry appears normal. Cardiovascular: Patient's skin is warm and dry. Rhythm is sinus rhythm. Respiratory: Airway is patent Respiratory effort is even, unlabored, Respiratory pattern is regular, symmetrical. Derm: No signs and/or symptoms reported regarding the dermatologic system. Skin is pink, warm \T\ dry. normal. Musculoskeletal: No signs and/or symptoms reported regarding the musculoskeletal system. Circulation, motion, and sensation intact. 16:14 Reassessment: Patient appears in no apparent distress at this time. No changes from aj1 previously documented assessment. Patient and/or family updated on plan of care and expected duration. Pain level reassessed. Patient is alert, oriented x 3, equal unlabored respirations, skin warm/dry/pink. Vital Signs: 10:13 BP 154 / 77; Pulse 85; Resp 18; Temp 97.6; Pulse Ox 99% ; Weight 81.65 kg; bp 11:34 BP 129 / 74; Pulse 81; Resp 18; Pulse Ox 98% on R/A; aj1 12:30 BP 140 / 77; Pulse 71; Resp 18; Pulse Ox 97% on R/A; aj1 13:30 BP 142 / 85; Pulse 82; Resp 18; Pulse Ox 97% on R/A; aj1 14:14 Pulse 72; Resp 18; Pulse Ox 98% on R/A; aj1 15:01 BP 126 / 90; Pulse 81; Resp 16; Temp 97.7(O); Pulse Ox 100% ; lt1 NIH Stroke Scale Scores: 11:19 NIHSS Score: 0 julio ED Course: 10:07 Patient arrived in ED. ag5 10:08 Stefanie Gross MD is Private Physician. ag5 10:12 Triage completed. bp 10:13 Cornelia Brown RN is Primary Nurse. aj1 10:13 Arm band placed on left wrist. bp 10:19 Sergio Fair MD is Attending Physician. julio 10:23 Patient has correct armband on for positive identification. Bed in low position. Call aj1 light in reach. Side rails up X 1. test borer helper on. Pulse ox on. NIBP on. 10:23 No provider procedures requiring assistance completed. aj1 10:36 XRAY Chest (1 view) In Process Unspecified. EDMS 10:36 EKG done, by fresh foods technician. reviewed by Sergio Fair MD. at1 10:55 Initial lab(s) drawn, by pa, sent to lab. Inserted saline lock: 18 gauge in left aj1 forearm, using aseptic technique. Blood collected. 12:26 US Carotid Artery Bilateral In Process Unspecified. EDMS 12:46 Brain Wo Cont In Process Unspecified. EDMS 13:03 CT Chest For PE Angio In Process Unspecified. EDMS 15:20 Stefanie Gross MD is Referral Physician. julio 16:14 IV discontinued, intact, bleeding controlled, No redness/swelling at site. Pressure aj1 dressing applied. Administered Medications: 11:52 Drug: NS 0.9% 500 ml Route: IV; Rate: bolus; Site: right forearm; aj1 15:31 Follow up: IV Status: Completed infusion; IV Intake: 500ml aj1 11:52 Drug: Aspirin Chewable Tablet 162 mg Route: PO; aj1 15:31 Follow up: Response: No adverse reaction aj1 11:53 Drug: NS 0.9% 1000 ml Route: IV; Rate: 125 ml/hr; Site: left forearm; aj1 15:30 Follow up: IV Status: Completed infusion; IV Intake: 300ml aj1 11:53 Drug: foLIC Acid 1 mg Route: IVPB; Site: left forearm; aj1 15:31 Follow up: IV Status: Completed infusion; IV Intake: 500ml aj1 15:31 Follow up: IV Status: Completed infusion aj1 13:28 Drug: NS 0.9% 500 ml Route: IV; Rate: bolus; Site: left forearm; aj1 Intake: 15:30 IV: 300ml; Total: 300ml. aj1 15:31 IV: 500ml; Total: 800ml. aj1 15:31 IV: 500ml; Total: 1300ml. aj1 Outcome: 15:20 Discharge ordered by . julio 16:17 Discharged to home ambulatory. aj1 16:17 Condition: good 16:17 Discharge instructions given to patient, family, Instructed on discharge instructions, follow up and referral plans. medication usage, Demonstrated understanding of instructions, follow-up care, medications, Prescriptions given X 1. 16:18 Patient left the ED. aj1 NIH Stroke Scale - NIH Stroke Score Date: 04/17/2019 Time: 11:19 Total Score = 0 1a. Level of Consciousness (LOC) - 0(Alert) 1b. Level of Consciousness (LOC) (Year \T\ Age) - 0(Both) 1c. LOC Commands (Open \T\ Closes Eyes/Spice Miller) - 0(Both) 2. Best Gaze (Lateral Gaze Paresis) - 0(Normal) 3. Visual Field Loss - 0(No visual loss) 4. Facial Palsy - 0(Normal) 5a. Left Arm: Motor (10-second hold) - 0(No drift) 5b. Right Arm: Motor (10-second hold) - 0(No drift) 6a. Left Leg: Motor (5-second hold - always test supine) - 0(No drift) 6b. Right Leg: Motor (5-second hold - always test supine) - 0(No drift) 7. Limb Ataxia (finger/nose \T\ heel/stephens - test with eyes open) - 0(Absent) 8. Sensory Loss (pinprick arms/legs/face) - 0(Normal) 9. Best Language: Aphasia (description/naming/reading) - 0(No aphasia) 10. Dysarthria (speech clarity - read or repeat words) - 0(Normal) 11. Extinction and Inattention (visual/tactile/auditory/spatial/personal) - 0(No abnormality) Initials: julio Signatures: Dispatcher [employer] EDCornelia Gambino, RN RN Sergio Aleman MD MD cha Smirch, Shelby, RN Blanche Georges, swim instructor EKG Tat1 Emeka Denton RN RN bp [place]askin, Ajare ag5 Darya Dorsey lt1
--- NOTE | 2019-04-17 15:52 | EKG ---
Test Date: 2019-04-17 Test Time: 10:30:18 [place]: DOUG MEASUREMENT RESULTS: Intervals: Rate: 81 OK: 166 QRSD: 86 QT: 378 QTc: 439 [place]: P: 53 OK: 166 QRS: 98 T: 27 INTERPRETIVE STATEMENTS: Sinus rhythm with premature atrial complexes Rightward axis Borderline ECG Compared to ECG 02/26/2008 23:55:12 Atrial premature complex(es) now present Right-axis deviation now present Electronically Signed On 04-17-19 15:50:45 CDT by Bill Pérez
[2019-04-17 16:53] VITALS: BP 126/90; TEMP 97.7; O2SAT 100
== END 2019-04-17 16:18 | disposition home or self-care (01) ==
LOC: ER 10:04
DX: R53.1 Weakness (principal); R91.1 Solitary pulmonary nodule; I10 Essential (primary) hypertension
CPT/HCPCS: 96365; 93005; 87088; 85025; 80048; 36415; 83735; 85610; 85379; 80076; 81003; 84484 ×2; 83690; 83880; 71275; 71045; 93880; 70551; 99285; 96366; Q9967; J7030; 87086

== ENCOUNTER 2022-05-20 20:56 | Emergency (ER) | payer OTHER ==
--- OUTSIDE RECORDS SUMMARY | 2022-05-20 21:00 | XMS REPORT | Continuity of Care Document ---
:1945 Author Organization [facility] t Address 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 [facility] [id number] Primary Problem Comm on osteoarthr Spirit itis, left - [facility] hand [facility] [id number] Elevated Problem Comm on PSA [facility] [id number] Prostate Problem Com wed nodule [facility] [id number] Obesity Problem Commo n (BMI Spirit 30-39.9) [facility] Pure Essential Problem Common hyperglyce hypertrigl Sp anne ridemia yceridemia [facility] [id number] Dermatitis Problem Com mon [facility] Psoriasis Psoriasis Problem Com mon [facility] Glaucoma Glaucoma Problem Commo n [facility] Osteoarthr Osteoarthr Problem C ommon itis of itis, Spirit multiple multiple - [facility] joints sites [facility] Psoriatic Other Problem Common arthropath psoriatic Spi rit y arthropath - [facility] y [facility] Cataract Cataract Problem Commo n Spirit [facility] Sexual Sexual Problem Common dysfunctio dysfunctio Sp anne n n - [facility]I [facility] Tinea Tinea Problem Common unguium unguium [facility] Hypertensi Hypertensi Problem C ommon on on Spirit - CHI [facility] Hyperglyce Hyperglyce Problem C ommon kenyetta kenyetta [facility] [id number] Primary Problem Common osteoarthr Spirit itis of - [facility] left [facility] [id number] Pulmonary Problem Com mon nodule, Spirit right [facility] [id number] Elevated Problem Comm on serum Spirit globulin - [facility] level [facility] [id number] Seasonal Problem Comm on allergic Spirit rhinitis, - [facility] unspecifie [facility] [id number] (QFT) 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 - [facility] reaction [facility] Medical tuberculos Center is [id number] 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 - [facility] carotid [facility] Impotence 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 - [facility]I n) [facility] [id number] Primary Problem Commo n osteoarthr Spirit itis of - [facility] both hips [facility] Allergies, Adverse Reactions, Alerts Allergy Allergy Status Severity Reaction(s) Onset Inactive Treating Comm ents Source Name Type Date Date Clinician 8102 Drug Active Unknown Common allergy [facility] 8349 Drug Active Unknown Common allergy [facility] levoflox levoflox Active nausea Common acin acin [facility] Social History Social Habit Start Date Stop Date Quantity Comments Source History of Tobacco Use Co mmon [facility] Sex Assigned At Com mon [facility] Smoking Status Start Date Stop Date Source Never Smoker Common [facility] Medications Ordered Filled Start Stop Current Ordering Indication Dosage Frequency Signature Comments Components Source Medication Medication Date Date Medication? Clinician (SIG) Name Name Keflex Keflex 2020-0 2020- No [place]iera 1 capsule Co mmon 01-0330 [place] [facility] 00:00: 00:00 - [facility] 00 :00 [facility] Losartan Losartan 2020-0 Yes Kiera 1 tablet Common Potassium Potassium 1-17 [place] S pirit 00:00: - [facility] 00 [facility] Magnesium Magnesium 2020-0 2020- No Kiera 2 tabs Common Oxide -Mg Oxide -Mg 1-17 07-15 [facility] Spirit Supplement Supplement 00:00: 00:00 - [facility]I 00 :00 [facility] [place] Kenalog 2019- No 40mg Common (Triamcinol (Triamcinol 1-22 S pirit one) one) 00:00: - [facility]I 00 [facility] [place] Kenalog 2019-1 No 40mg Common (Triamcinol (Triamcinol 1-22 S pirit one) one) 00:00: - [facility]I 00 [facility] [place] Kenalog 2019- No 40mg Common (Triamcinol (Triamcinol 1-22 S pirit one) one) 00:00: - [facility]I 00 [facility] [place] Kenalog 2019- No 40mg Common (Triamcinol (Triamcinol 1-22 S pirit one) one) 00:00: - [facility]I 00 [facility] [place] Kenalog 2019-1 No 40mg Common (Triamcinol (Triamcinol 1-22 S pirit one) one) 00:00: - [facility]I 00 [facility] [place] Kenalog 2019- No 40mg Common (Triamcinol (Triamcinol 1-22 S pirit one) one) 00:00: - [facility]I 00 [facility] [place] Kenalog 2019- No 40mg Common (Triamcinol (Triamcinol 1-22 S pirit one) one) 00:00: - [facility] 00 [facility] [place] Kenalog 2019-1 No 40mg Common (Triamcinol (Triamcinol 1-22 S pirit one) one) 00:00: - [facility]I 00 [facility] [place] Kenalog 2019-1 No 40mg Common (Triamcinol (Triamcinol 1-22 S pirit one) one) 00:00: - [facility]I 00 [facility] [place] Kenalog 2019- No 40mg Common (Triamcinol (Triamcinol 1-22 S pirit one) one) 00:00: - [facility]I 00 [facility] Kenalog Kenalog 2018-07 No 40mg Common (Triamcinol (Triamcinol 1-22 S pirit one) one) 00:00: - [facility]I 00 [facility] Kenalog Kenalog 2018-07 No 40mg Common (Triamcinol (Triamcinol 1-22 S pirit one) one) 00:00: - [facility]I 00 [facility] Triamcinolo Triamcinolo 2018- Yes Kiera 1 Common ne ne 1-18 [place] applicatio Spiri t Acetonide Acetonide 00:00: n to - C HI 00 affected [facility] Clobetasol Clobetasol Yes Kiera 1 Co mmon Propionate Propionate [place] applicatio Spirit n to - [facility] affected [facility] Amlodipine Amlodipine Yes Kiera 1 tablet Common Besylate Besylate [place] Spi rit [facility] Losartan Losartan Yes Kiera 1 tablet Co mmon Potassium Potassium [facility] Meloxicam Meloxicam Yes Kiera 1 tablet Common Hans Spirit [facility] Folic Acid Folic Acid Yes Kiera 1 tablet Common Hans [facility] Meloxicam Meloxicam No Meloxicam 7.5 MG 7.5 MG 7.5 MG Magnesium Magnesium No QD Magnesium Oxide -Mg Oxide -Mg Oxide -Mg Supplement Supplement Supplement 250 MG 250 MG 250 MG Terbinafine Terbinafine No 1{table QD Terbinafin HCl 250 MG HCl 250 MG t} e HCl 250 MG Folic Acid Folic Acid No 1{table QD Folic Acid 1 MG 1 MG t} 1 MG Losartan Losartan No 1{table QD Losartan Potassium Potassium t} Potassium 100 MG 100 MG 100 MG amLODIPine amLODIPine No amLODIPine Besylate 5 Besylate 5 Besylate 5 MG MG MG Triamcinolo Triamcinolo No 1{appli BID Triamcinol ne ne cation_ one Acetonide Acetonide to_affe Acetonide 0.1 % 0.1 % cted_ar 0.1 % ea} Meloxicam Meloxicam No Meloxicam 7.5 MG 7.5 MG 7.5 MG amLODIPine amLODIPine No 1{table BID amLODIPine Besylate 5 Besylate 5 t} Besylate 5 MG MG MG amLODIPine amLODIPine No 1{table BID amLODIPine Besylate 5 Besylate 5 t} Besylate 5 MG MG MG Triamcinolo Triamcinolo No 1{appli BID Triamcinol ne ne cation_ one Acetonide Acetonide to_affe Acetonide 0.1 % 0.1 % cted_ar 0.1 % ea} Folic Acid Folic Acid No 1{table QD Folic Acid 1 MG 1 MG t} 1 MG Magnesium Magnesium No QD Magnesium Oxide -Mg Oxide -Mg Oxide -Mg Supplement Supplement Supplement 250 MG 250 MG 250 MG amLODIPine amLODIPine No amLODIPine Besylate 5 Besylate 5 Besylate 5 MG MG MG Losartan Losartan No 1{table QD Losartan Potassium Potassium t} Potassium 100 MG 100 MG 100 MG Meloxicam Meloxicam No Meloxicam 7.5 MG 7.5 MG 7.5 MG Terbinafine Terbinafine No 1{table QD Terbinafin HCl 250 MG HCl 250 MG t} e HCl 250 MG Meloxicam Meloxicam No Meloxicam 7.5 MG 7.5 MG 7.5 MG amLODIPine amLODIPine No 1{table BID Besylate 5 Besylate 5 t} MG MG Triamcinolo Triamcinolo No 1{appli BID ne ne cation_ Acetonide Acetonide to_affe 0.1 % 0.1 % cted_ar ea} Folic Acid Folic Acid No 1{table QD 1 MG 1 MG t} Magnesium Magnesium No QD Oxide -Mg Oxide -Mg Supplement Supplement 250 MG 250 MG amLODIPine amLODIPine No Besylate 5 Besylate 5 MG MG Losartan Losartan No 1{table QD Potassium Potassium t} 100 MG 100 MG Meloxicam Meloxicam No 7.5 MG 7.5 MG Terbinafine Terbinafine No 1{table QD HCl 250 MG HCl 250 MG t} Meloxicam Meloxicam No 7.5 MG 7.5 MG amLODIPine amLODIPine No 1{table BID amLODIPine Besylate 5 Besylate 5 t} Besylate 5 MG MG MG Triamcinolo Triamcinolo No 1{appli BID Triamcinol ne ne cation_ one Acetonide Acetonide to_affe Acetonide 0.1 % 0.1 % cted_ar 0.1 % ea} Folic Acid Folic Acid No 1{table QD Folic Acid 1 MG 1 MG t} 1 MG Magnesium Magnesium No QD Magnesium Oxide -Mg Oxide -Mg Oxide -Mg Supplement Supplement Supplement 250 MG 250 MG 250 MG amLODIPine amLODIPine No amLODIPine Besylate 5 Besylate 5 Besylate 5 MG MG MG Losartan Losartan No 1{table QD Losartan Potassium Potassium t} Potassium 100 MG 100 MG 100 MG Meloxicam Meloxicam No Meloxicam 7.5 MG 7.5 MG 7.5 MG Terbinafine Terbinafine No 1{table QD Terbinafin HCl 250 MG HCl 250 MG t} e HCl 250 MG Meloxicam Meloxicam No Meloxicam 7.5 MG 7.5 MG 7.5 MG Terbinafine Terbinafine No 1{table QD Terbinafin HCl 250 MG HCl 250 MG t} e HCl 250 MG Triamcinolo Triamcinolo No 1{appli BID Triamcinol ne ne cation_ one Acetonide Acetonide to_affe Acetonide 0.1 % 0.1 % cted_ar 0.1 % ea} Magnesium Magnesium No QD Magnesium Oxide -Mg Oxide -Mg Oxide -Mg Supplement Supplement Supplement 250 MG 250 MG 250 MG Meloxicam Meloxicam No Meloxicam 7.5 MG 7.5 MG 7.5 MG amLODIPine amLODIPine No amLODIPine Besylate 5 Besylate 5 Besylate 5 MG MG MG amLODIPine amLODIPine No 1{table BID amLODIPine Besylate 5 Besylate 5 t} Besylate 5 MG MG MG Folic Acid Folic Acid No 1{table QD Folic Acid 1 MG 1 MG t} 1 MG Losartan Losartan No 1{table QD Losartan Potassium Potassium t} Potassium 100 MG 100 MG 100 MG Meloxicam Meloxicam No Meloxicam 7.5 MG 7.5 MG 7.5 MG amLODIPine amLODIPine No 1{table BID Besylate 5 Besylate 5 t} MG MG Magnesium Magnesium No QD Oxide -Mg Oxide -Mg Supplement Supplement 250 MG 250 MG Triamcinolo Triamcinolo No 1{appli BID ne ne cation_ Acetonide Acetonide to_affe 0.1 % 0.1 % cted_ar ea} Losartan Losartan No 1{table QD Potassium Potassium t} 100 MG 100 MG Folic Acid Folic Acid No 1{table QD 1 MG 1 MG t} Meloxicam Meloxicam No 7.5 MG 7.5 MG Losartan Losartan No 1{table QD Losartan Potassium Potassium t} Potassium 100 MG 100 MG 100 MG Folic Acid Folic Acid No 1{table QD Folic Acid 1 MG 1 MG t} 1 MG Triamcinolo Triamcinolo No 1{appli BID Triamcinol ne ne cation_ one Acetonide Acetonide to_affe Acetonide 0.1 % 0.1 % cted_ar 0.1 % ea} Magnesium Magnesium No QD Magnesium Oxide -Mg Oxide -Mg Oxide -Mg Supplement Supplement Supplement 250 MG 250 MG 250 MG Meloxicam Meloxicam No Meloxicam 7.5 MG 7.5 MG 7.5 MG amLODIPine amLODIPine No 1{table BID amLODIPine Besylate 5 Besylate 5 t} Besylate 5 MG MG MG amLODIPine amLODIPine No amLODIPine Besylate 5 Besylate 5 Besylate 5 MG MG MG Folic Acid Folic Acid No 1{table QD Folic Acid 1 MG 1 MG t} 1 MG Triamcinolo Triamcinolo No 1{appli BID Triamcinol ne ne cation_ one Acetonide Acetonide to_affe Acetonide 0.1 % 0.1 % cted_ar 0.1 % ea} Magnesium Magnesium No QD Magnesium Oxide -Mg Oxide -Mg Oxide -Mg Supplement Supplement Supplement 250 MG 250 MG 250 MG Meloxicam Meloxicam No Meloxicam 7.5 MG 7.5 MG 7.5 MG Losartan Losartan No Losartan Potassium Potassium Potassium 100 MG 100 MG 100 MG Losartan Losartan No Losartan Potassium Potassium Potassium 100 MG 100 MG 100 MG amLODIPine amLODIPine No 1{table BID amLODIPine Besylate 5 Besylate 5 t} Besylate 5 MG MG MG Meloxicam Meloxicam No Meloxicam 7.5 MG 7.5 MG 7.5 MG Folic Acid Folic Acid No 1{table QD Folic Acid 1 MG 1 MG t} 1 MG amLODIPine amLODIPine No amLODIPine Besylate 5 Besylate 5 Besylate 5 MG MG MG Losartan Losartan No 1{table QD Losartan Potassium Potassium t} Potassium 100 MG 100 MG 100 MG Triamcinolo Triamcinolo No 1{appli BID Triamcinol ne ne cation_ one Acetonide Acetonide to_affe Acetonide 0.1 % 0.1 % cted_ar 0.1 % ea} Magnesium Magnesium No QD Magnesium Oxide -Mg Oxide -Mg Oxide -Mg Supplement Supplement Supplement 250 MG 250 MG 250 MG Losartan Losartan No Losartan Potassium Potassium Potassium 100 MG 100 MG 100 MG Folic Acid Folic Acid No 1{table QD Folic Acid 1 MG 1 MG t} 1 MG Magnesium Magnesium No QD Magnesium Oxide -Mg Oxide -Mg Oxide -Mg Supplement Supplement Supplement 250 MG 250 MG 250 MG Triamcinolo Triamcinolo No 1{appli BID Triamcinol ne ne cation_ one Acetonide Acetonide to_affe Acetonide 0.1 % 0.1 % cted_ar 0.1 % ea} amLODIPine amLODIPine No amLODIPine Besylate 5 Besylate 5 Besylate 5 MG MG MG Meloxicam Meloxicam No Meloxicam 7.5 MG 7.5 MG 7.5 MG Losartan Losartan No Losartan Potassium Potassium Potassium 100 MG 100 MG 100 MG Pantoprazol Pantoprazol No 1{table QD Pantoprazo e Sodium 40 e Sodium 40 t} le Sodium MG MG 40 MG amLODIPine amLODIPine No amLODIPine Besylate 5 Besylate 5 Besylate 5 MG MG MG Magnesium Magnesium No QD Magnesium Oxide -Mg Oxide -Mg Oxide -Mg Supplement Supplement Supplement 250 MG 250 MG 250 MG Meloxicam Meloxicam No Meloxicam 7.5 MG 7.5 MG 7.5 MG Folic Acid Folic Acid No 1{table QD Folic Acid 1 MG 1 MG t} 1 MG Triamcinolo Triamcinolo No 1{appli BID Triamcinol ne ne cation_ one Acetonide Acetonide to_affe Acetonide 0.1 % 0.1 % cted_ar 0.1 % ea} Meloxicam Meloxicam No Meloxicam 7.5 MG 7.5 MG 7.5 MG Losartan Losartan No 1{table QD Losartan Potassium Potassium t} Potassium 100 MG 100 MG 100 MG Pantoprazol Pantoprazol No 1{table QD Pantoprazo e Sodium 40 e Sodium 40 t} le Sodium MG MG 40 MG Losartan Losartan No Losartan Potassium Potassium Potassium 100 MG 100 MG 100 MG amLODIPine amLODIPine No 1{table BID amLODIPine Besylate 5 Besylate 5 t} Besylate 5 MG MG MG Folic Acid Folic Acid No 1{table QD Folic Acid 1 MG 1 MG t} 1 MG Magnesium Magnesium No QD Magnesium Oxide -Mg Oxide -Mg Oxide -Mg Supplement Supplement Supplement 250 MG 250 MG 250 MG amLODIPine amLODIPine No amLODIPine Besylate 5 Besylate 5 Besylate 5 MG MG MG Triamcinolo Triamcinolo No 1{appli BID Triamcinol ne ne cation_ one Acetonide Acetonide to_affe Acetonide 0.1 % 0.1 % cted_ar 0.1 % ea} Meloxicam Meloxicam No Meloxicam 7.5 MG 7.5 MG 7.5 MG Losartan Losartan No 1{table QD Losartan Potassium Potassium t} Potassium 100 MG 100 MG 100 MG Pantoprazol Pantoprazol No 1{table QD Pantoprazo e Sodium 40 e Sodium 40 t} le Sodium MG MG 40 MG Losartan Losartan No Losartan Potassium Potassium Potassium 100 MG 100 MG 100 MG amLODIPine amLODIPine No 1{table BID amLODIPine Besylate 5 Besylate 5 t} Besylate 5 MG MG MG Folic Acid Folic Acid No 1{table QD Folic Acid 1 MG 1 MG t} 1 MG Magnesium Magnesium No QD Magnesium Oxide -Mg Oxide -Mg Oxide -Mg Supplement Supplement Supplement 250 MG 250 MG 250 MG amLODIPine amLODIPine No amLODIPine Besylate 5 Besylate 5 Besylate 5 MG MG MG Triamcinolo Triamcinolo No 1{appli BID Triamcinol ne ne cation_ one Acetonide Acetonide to_affe Acetonide 0.1 % 0.1 % cted_ar 0.1 % ea} Meloxicam Meloxicam No Meloxicam 7.5 MG 7.5 MG 7.5 MG Losartan Losartan No 1{table QD Losartan Potassium Potassium t} Potassium 100 MG 100 MG 100 MG Pantoprazol Pantoprazol No 1{table QD Pantoprazo e Sodium 40 e Sodium 40 t} le Sodium MG MG 40 MG Losartan Losartan No Losartan Potassium Potassium Potassium 100 MG 100 MG 100 MG amLODIPine amLODIPine No 1{table BID amLODIPine Besylate 5 Besylate 5 t} Besylate 5 MG MG MG Folic Acid Folic Acid No 1{table QD Folic Acid 1 MG 1 MG t} 1 MG Magnesium Magnesium No QD Magnesium Oxide -Mg Oxide -Mg Oxide -Mg Supplement Supplement Supplement 250 MG 250 MG 250 MG amLODIPine amLODIPine No amLODIPine Besylate 5 Besylate 5 Besylate 5 MG MG MG Triamcinolo Triamcinolo No 1{appli BID Triamcinol ne ne cation_ one Acetonide Acetonide to_affe Acetonide 0.1 % 0.1 % cted_ar 0.1 % ea} Meloxicam Meloxicam No Meloxicam 7.5 MG 7.5 MG 7.5 MG Losartan Losartan No 1{table QD Losartan Potassium Potassium t} Potassium 100 MG 100 MG 100 MG Pantoprazol Pantoprazol No 1{table QD Pantoprazo e Sodium 40 e Sodium 40 t} le Sodium MG MG 40 MG Losartan Losartan No Losartan Potassium Potassium Potassium 100 MG 100 MG 100 MG amLODIPine amLODIPine No 1{table BID amLODIPine Besylate 5 Besylate 5 t} Besylate 5 MG MG MG Folic Acid Folic Acid No 1{table QD Folic Acid 1 MG 1 MG t} 1 MG Magnesium Magnesium No QD Magnesium Oxide -Mg Oxide -Mg Oxide -Mg Supplement Supplement Supplement 250 MG 250 MG 250 MG amLODIPine amLODIPine No amLODIPine Besylate 5 Besylate 5 Besylate 5 MG MG MG Triamcinolo Triamcinolo No 1{appli BID Triamcinol ne ne cation_ one Acetonide Acetonide to_affe Acetonide 0.1 % 0.1 % cted_ar 0.1 % ea} Pantoprazol Pantoprazol No 1{table QD Pantoprazo e Sodium 40 e Sodium 40 t} le Sodium MG MG 40 MG Folic Acid Folic Acid No 1{table QD Folic Acid 1 MG 1 MG t} 1 MG Magnesium Magnesium No QD Magnesium Oxide -Mg Oxide -Mg Oxide -Mg Supplement Supplement Supplement 250 MG 250 MG 250 MG amLODIPine amLODIPine No 1{table BID amLODIPine Besylate 5 Besylate 5 t} Besylate 5 MG MG MG Losartan Losartan No Losartan Potassium Potassium Potassium 100 MG 100 MG 100 MG Losartan Losartan No 1{table QD Losartan Potassium Potassium t} Potassium 100 MG 100 MG 100 MG amLODIPine amLODIPine No amLODIPine Besylate 5 Besylate 5 Besylate 5 MG MG MG Triamcinolo Triamcinolo No 1{appli BID Triamcinol ne ne cation_ one Acetonide Acetonide to_affe Acetonide 0.1 % 0.1 % cted_ar 0.1 % ea} Meloxicam Meloxicam No Meloxicam 7.5 MG 7.5 MG 7.5 MG Pantoprazol Pantoprazol No 1{table QD Pantoprazo e Sodium 40 e Sodium 40 t} le Sodium MG MG 40 MG Folic Acid Folic Acid No 1{table QD Folic Acid 1 MG 1 MG t} 1 MG Magnesium Magnesium No QD Magnesium Oxide -Mg Oxide -Mg Oxide -Mg Supplement Supplement Supplement 250 MG 250 MG 250 MG amLODIPine amLODIPine No 1{table BID amLODIPine Besylate 5 Besylate 5 t} Besylate 5 MG MG MG Losartan Losartan No Losartan Potassium Potassium Potassium 100 MG 100 MG 100 MG Losartan Losartan No 1{table QD Losartan Potassium Potassium t} Potassium 100 MG 100 MG 100 MG amLODIPine amLODIPine No amLODIPine Besylate 5 Besylate 5 Besylate 5 MG MG MG Triamcinolo Triamcinolo No 1{appli BID Triamcinol ne ne cation_ one Acetonide Acetonide to_affe Acetonide 0.1 % 0.1 % cted_ar 0.1 % ea} Meloxicam Meloxicam No Meloxicam 7.5 MG 7.5 MG 7.5 MG Pantoprazol Pantoprazol No 1{table QD Pantoprazo e Sodium 40 e Sodium 40 t} le Sodium MG MG 40 MG Losartan Losartan No Losartan Potassium Potassium Potassium 100 MG 100 MG 100 MG Meloxicam Meloxicam No Meloxicam 7.5 MG 7.5 MG 7.5 MG Triamcinolo Triamcinolo No 1{appli BID Triamcinol ne ne cation_ one Acetonide Acetonide to_affe Acetonide 0.1 % 0.1 % cted_ar 0.1 % ea} amLODIPine amLODIPine No amLODIPine Besylate 5 Besylate 5 Besylate 5 MG MG MG Magnesium Magnesium No QD Magnesium Oxide -Mg Oxide -Mg Oxide -Mg Supplement Supplement Supplement 250 MG 250 MG 250 MG Folic Acid Folic Acid No 1{table QD Folic Acid 1 MG 1 MG t} 1 MG Pantoprazol Pantoprazol No 1{table QD Pantoprazo e Sodium 40 e Sodium 40 t} le Sodium MG MG 40 MG Folic Acid Folic Acid No 1{table QD Folic Acid 1 MG 1 MG t} 1 MG Magnesium Magnesium No QD Magnesium Oxide -Mg Oxide -Mg Oxide -Mg Supplement Supplement Supplement 250 MG 250 MG 250 MG amLODIPine amLODIPine No 1{table BID amLODIPine Besylate 5 Besylate 5 t} Besylate 5 MG MG MG Losartan Losartan No Losartan Potassium Potassium Potassium 100 MG 100 MG 100 MG Losartan Losartan No 1{table QD Losartan Potassium Potassium t} Potassium 100 MG 100 MG 100 MG amLODIPine amLODIPine No amLODIPine Besylate 5 Besylate 5 Besylate 5 MG MG MG Triamcinolo Triamcinolo No 1{appli BID Triamcinol ne ne cation_ one Acetonide Acetonide to_affe Acetonide 0.1 % 0.1 % cted_ar 0.1 % ea} Meloxicam Meloxicam No Meloxicam 7.5 MG 7.5 MG 7.5 MG Immunizations Ordered Immunization Filled Immunization Date Status Commen ts Source Name Name [place] [id number] 2021-07-23 Completed [facility] Vaccine (Low Dose Vaccine (Low Dose 10:52:[facility] [address] [facility] Vaccine (Low Dose Vaccine (Low Dose 10:52:[facility] [address]-23 Completed [facility] Vaccine (Low Dose Vaccine (Low Dose 10:52:[facility]oster) [place] [id number] 2021-07-23 Completed [facility] Vaccine (Low Dose Vaccine (Low Dose 10:52:[facility] Booster) [place] [id number] 2021-07-23 Completed [facility] Vaccine (Low Dose Vaccine (Low Dose 10:52:[facility] [address] [facility]-23 Completed [facility] Vaccine (Low Dose Vaccine (Low Dose 10:52:[facility] [address] [facility]-07-23 Completed [facility] Vaccine (Low Dose Vaccine (Low Dose 10:52:00 - [facility] [address] [facility] 2021-07-23 Completed [facility] Vaccine (Low Dose Vaccine (Low Dose 10:52:[facility] - [facility] [address] [facility] 2021-07-23 Completed [facility] Vaccine (Low Dose Vaccine (Low Dose 10:52:[facility] [address] [facility] 2021-07-23 Completed [facility] Vaccine (Low Dose Vaccine (Low Dose 10:52:[facility] Booster[facility] COVID-19 Moderna COVID-19 2021-07-23 Completed [facility] Vaccine (Low Dose Vaccine (Low Dose 10:52:00 - [facility] Booster) [facility] COVID-19 Moderna COVID-19 2021-07-23 Completed [facility] Vaccine (Low Dose Vaccine (Low Dose 10:52:[facility] - [facility] Booster) [facility] COVID19 Moderna COVID-19 2021-07-23 Completed [facility] Vaccine (Low Dose Vaccine (Low Dose 10:52:[facility] Booster) [facility] 2021-07-23 Completed [facility] Vaccine (Low Dose Vaccine (Low Dose 10:52:[facility] Booster) [facility] COVID[facility] 2021-07-23 Completed [facility] Vaccine (Low Dose Vaccine (Low Dose 10:52:[address] [facility] Booster) [facility] COVID-19 Moderna COVID-19 2020-10-02 Completed [facility] Vaccine Vaccine 09:56:00 - [facility] Moderna COVID-19 Moderna COVID-19 2020-10-02 Completed [facility] Vaccine Vaccine 09:56:00 [facility] Moderna COVID-19 Moderna COVID-19 2020-10-02 Completed [facility] Vaccine Vaccine 09:56:00 [facility] Moderna COVID-19 Moderna COVID-19 2020-10-02 Completed [facility] Vaccine Vaccine 09:56:00 [facility] Moderna COVID-19 Moderna COVID-19 2020-10-02 Completed [facility] Vaccine Vaccine 09:56:00 [facility] Moderna COVID-19 Moderna COVID-19 2020-10-02 Completed [facility] Vaccine Vaccine 09:56:00 [facility] Moderna COVID-19 Moderna COVID-19 2020-10-02 Completed [facility] Vaccine Vaccine 09:56:00 [facility] Moderna COVID-19 Moderna COVID-19 2020-10-02 Completed [facility] Vaccine Vaccine 09:56:00 - [facility] Moderna COVID-19 Moderna COVID-19 2020-10-02 Completed [facility] Vaccine Vaccine 09:56:00 - [facility] Moderna COVID-19 Moderna COVID-19 2020-10-02 Completed [facility] Vaccine Vaccine 09:56:00 - [facility] Moderna COVID-19 Moderna COVID-19 2020-10-02 Completed [facility] Vaccine Vaccine 09:56:00 - [facility] Moderna COVID-19 Moderna COVID-19 2020-10-02 Completed [facility] Vaccine Vaccine 09:56:00 - [facility] Moderna COVID-19 Moderna COVID-19 2020-10-02 Completed [facility] Vaccine Vaccine 09:56:00 - [facility] Moderna COVID-19 Moderna COVID-19 2020-10-02 Completed [facility] Vaccine Vaccine 09:56:00 - [facility] Moderna COVID-19 Moderna COVID-19 2020-10-02 Completed [facility] Vaccine Vaccine 09:56:00 - [facility] Moderna COVID-19 Moderna COVID-19 2020-10-02 Completed [facility] Vaccine Vaccine 09:56:00 - [facility] Moderna COVID-19 Moderna COVID-19 2020-10-02 Completed [facility] Vaccine Vaccine 09:56:00 - [facility] Moderna COVID-19 Moderna COVID-19 2020-10-02 Completed [facility] Vaccine Vaccine 09:56:00 - [facility] Moderna COVID-19 Moderna COVID-19 2020-10-02 Completed [facility] Vaccine Vaccine 09:56:00 - [facility] Moderna COVID-19 Moderna COVID-19 2020-09-04 Completed [facility] Vaccine Vaccine 09:56:00 - [facility] Moderna COVID-19 Moderna COVID-19 2020-09-04 Completed [facility] Vaccine Vaccine 09:56:00 - [facility] Moderna COVID-19 Moderna COVID-19 2020-09-04 Completed [facility] Vaccine Vaccine 09:56:00 - [facility] Moderna COVID-19 Moderna COVID-19 2020-09-04 Completed [facility] Vaccine Vaccine 09:56:00 - [facility] Moderna COVID-19 Moderna COVID-19 2020-09-04 Completed [facility] Vaccine Vaccine 09:56:00 - [facility] Moderna COVID-19 Moderna COVID-19 2020-09-04 Completed [facility] Vaccine Vaccine 09:56:00 - [facility] Moderna COVID-19 Moderna COVID-19 2020-09-04 Completed [facility] Vaccine Vaccine 09:56:00 - [facility] Moderna COVID-19 Moderna COVID-19 2020-09-04 Completed [facility] Vaccine Vaccine 09:56:00 - [facility] Moderna COVID-19 Moderna COVID-19 2020-09-04 Completed [facility] Vaccine Vaccine 09:56:00 - [facility] Moderna COVID-19 Moderna COVID-19 2020-09-04 Completed [facility] Vaccine Vaccine 09:56:00 - [facility] Moderna COVID-19 Moderna COVID-19 2020-09-04 Completed [facility] Vaccine Vaccine 09:56:00 - [facility] Moderna COVID-19 Moderna COVID-19 2020-09-04 Completed [facility] Vaccine Vaccine 09:56:00 - [facility] Moderna COVID-19 Moderna COVID-19 2020-09-04 Completed [facility] Vaccine Vaccine 09:56:00 - [facility] Moderna COVID-19 Moderna COVID-19 2020-09-04 Completed [facility] Vaccine Vaccine 09:56:00 - [facility] Moderna COVID-19 Moderna COVID-19 2020-09-04 Completed [facility] Vaccine Vaccine 09:56:00 - [facility] Moderna COVID-19 Moderna COVID-19 2020-09-04 Completed [facility] Vaccine Vaccine 09:56:00 - [facility] Moderna COVID-19 Moderna COVID-19 2020-09-04 Completed [facility] Vaccine Vaccine 09:56:00 - [facility] Moderna COVID-19 Moderna COVID-19 2020-09-04 Completed [facility] Vaccine Vaccine 09:56:00 - [facility] Moderna COVID-19 Moderna COVID-19 2020-09-04 Completed [facility] Vaccine Vaccine 09:56:00 - [facility] Kenalog Kenalog 2019-05-26 Completed [facility] (Triamcinolone) (Triamcinolone) 15:09:00 - [facility] FluAD FluAD 2018-05-06 Completed [facility] 13:42:00 - [facility] FluAD FluAD 2018-05-06 Completed [facility] 13:42:00 - [facility] FluAD FluAD 2018-05-06 Completed [facility] 13:42:00 - [facility] FluAD FluAD 2018-05-06 Completed [facility] 13:42:00 - [facility] FluAD FluAD 2018-05-06 Completed [facility] 13:42:00 - [facility] FluAD FluAD 2018-05-06 Completed [facility] 13:42:00 - [facility] FluAD FluAD 2018-05-06 Completed [facility] 13:42:00 - [facility] FluAD FluAD 2018-05-06 Completed [facility] 13:42:00 - [facility] FluAD FluAD 2018-05-06 Completed [facility] 13:42:00 - [facility] FluAD FluAD 2018-05-06 Completed [facility] 13:42:00 - [facility] FluAD FluAD 2018-05-06 Completed [facility] 13:42:00 - [facility] FluAD FluAD 2018-05-06 Completed [facility] 13:42:00 - [facility] FluAD FluAD 2018-05-06 Completed [facility] 13:42:00 - [facility] FluAD FluAD 2018-05-06 Completed [facility] 13:42:00 - [facility] FluAD FluAD 2018-05-06 Completed [facility] 13:42:00 - [facility] FluAD FluAD 2018-05-06 Completed [facility] 13:42:00 - [facility] FluAD FluAD 2018-05-06 Completed [facility] 13:42:00 - [facility] FluAD FluAD 2018-05-06 Completed [facility] 13:42:00 - [facility] FluAD FluAD 2018-05-06 Completed [facility] 13:42:00 - [facility] Td Td 2018-02-22 Completed [facility] 11:43:00 - [facility] Td Td 2018-02-22 Completed [facility] 11:43:00 [facility] Td Td 2018-02-22 Completed [facility] 11:43:00 - [facility] Td Td 2018-02-22 Completed [facility] 11:43:00 - [facility] Td Td 2018-02-22 Completed [facility] 11:43:00 - [facility] Td Td 2018-02-22 Completed [facility] 11:43:00 [facility] Td Td 2018-02-22 Completed [facility] 11:43:00 - [facility] Td Td 2018-02-22 Completed [facility] 11:43:00 [facility] Td Td 2018-02-22 Completed [facility] 11:43:00 - [facility] Td Td 2018-02-22 Completed [facility] 11:43:00 - [facility] Td Td 2018-02-22 Completed [facility] 11:43:00 - [facility] Td Td 2018-02-22 Completed [facility] 11:43:00 [facility] Td Td 2018-02-22 Completed [facility] 11:43:00 [facility] Td Td 2018-02-22 Completed [facility] 11:43:00 [facility] Td Td 2018-02-22 Completed [facility] 11:43:00 [facility] Td Td 2018-02-22 Completed [facility] 11:43:00 [facility] Td Td 2018-02-22 Completed [facility] 11:43:00 - [facility] Td Td 2018-02-22 Completed [facility] 11:43:00 - [facility] Td Td 2018-02-22 Completed [facility] 11:43:00 - [facility] Td Td 2018-02-22 Completed [facility] 00:00:00 - [facility] Vital Signs Vital Name Observation Time Observation Value Comments Source height 2022-03-20 09:40:00 65.00 [in_i] [facility] weight 2022-03-20 09:40:00 185.0 [lb_av] [facility] temperature 2022-03-20 09:40:00 98.2 [degF] [facility] bmi 2022-03-20 09:40:00 30.78 kg/m2 [facility] oximetry 2022-03-20 09:40:00 96 % [facility] respiratory rate 2022-03-20 09:40:00 16 /min Comm on [facility] blood pressure 2022-03-20 09:40:00 122 mm[Hg] [facility] systolic [facility] blood pressure 2022-03-20 09:40:00 70 mm[Hg] [facility] diastolic [facility] height 2022-02-03 11:00:00 65.00 [in_i] [facility] weight 2022-02-03 11:00:00 185.8 [lb_av] [facility] temperature 2022-02-03 11:00:00 98.1 [degF] [facility] bmi 2022-02-03 11:00:00 30.92 kg/m2 [facility] oximetry 2022-02-03 11:00:00 95 % [facility] respiratory rate 2022-02-03 11:00:00 16 /min Comm on [facility] blood pressure 2022-02-03 11:00:00 136 mm[Hg] [facility] - systolic [facility] blood pressure 2022-02-03 11:00:00 72 mm[Hg] [facility] - diastolic [facility] height 2022-01-15 09:00:00 65.00 [in_i] [facility] weight 2022-01-15 09:00:00 185.6 [lb_av] Common [facility] temperature 2022-01-15 09:00:00 97.6 [degF] [facility] bmi 2022-01-15 09:00:00 30.88 kg/m2 [facility] oximetry 2022-01-15 09:00:00 98 % [facility] respiratory rate 2022-01-15 09:00:00 16 /min Comm on [facility] blood pressure 2022-01-15 09:00:00 153 mm[Hg] Common [facility] - systolic [facility] blood pressure 2022-01-15 09:00:00 80 mm[Hg] [facility] - diastolic [facility] height 2021-11-03 09:40:00 65.00 [in_i] [facility] 2021-11-03 09:40:00 188.6 [lb_av] [facility] temperature 2021-11-03 09:40:00 98.3 [degF] [facility] bmi 2021-11-03 09:40:00 31.38 kg/m2 [facility] 2021-11-03 09:40:00 96 % Common [facility] respiratory rate 2021-11-03 09:40:00 16 /min Comm on [facility] blood pressure 2021-11-03 09:40:00 135 mm[Hg] Common [facility] - systolic [facility] blood pressure 2021-11-03 09:40:00 78 mm[Hg] [facility] - diastolic [facility] height 2021-08-01 09:00:00 65.00 [in_i] [facility] weight 2021-08-01 09:00:00 186 [lb_av] [facility] temperature 2021-08-01 09:00:00 98.2 [degF] [facility] bmi 2021-08-01 09:00:00 30.95 kg/m2 [facility] oximetry 2021-08-01 09:00:00 99 % [facility] respiratory rate 2021-08-01 09:00:00 16 /min Comm on [facility] blood pressure 2021-08-01 09:00:00 136 mm[Hg] [facility] - systolic [facility] blood pressure 2021-08-01 09:00:00 82 mm[Hg] [facility] - diastolic [facility] height 2021-08-01 09:20:00 65.00 [in_i] [facility] weight 2021-08-01 09:20:00 186 [lb_av] Common S [facility] temperature 2021-08-01 09:20:00 98.2 [degF] [facility] bmi 2021-08-01 09:20:00 30.95 kg/m2 [facility] oximetry 2021-08-01 09:20:00 99 % [facility] blood pressure 2021-08-01 09:20:00 136 mm[Hg] [facility] - systolic [facility] blood pressure 2021-08-01 09:20:00 82 mm[Hg] [facility] - diastolic [facility] height 2021-07-08 13:40:00 65.00 [in_i] [facility] weight 2021-07-08 13:40:00 184 [lb_av] [facility] bmi 2021-07-08 13:40:00 30.62 kg/m2 Common [facility] height 2021-04-22 08:40:00 65.00 [in_i] [facility] weight 2021-04-22 08:40:00 184 [lb_av] [facility] temperature 2021-04-22 08:40:00 98.1 [degF] [facility] bmi 2021-04-22 08:40:00 30.62 kg/m2 [facility] oximetry 2021-04-22 08:40:00 96 % [facility] respiratory rate 2021-04-22 08:40:00 16 /min Comm on [facility] blood pressure 2021-04-22 08:40:00 138 mm[Hg] [facility] systolic [facility] blood pressure 2021-04-22 08:40:00 74 mm[Hg] Common [facility] diastolic [facility] Procedures This patient has no known procedures. Encounters Start End Encounter Admission Attending Care Care Encounter Source Date/Time Date/Time Type Type Clinicians Facility Department ID 2022-05-06 Outpatient Gross, Na STLMLC STLMLC [id number] [facility] 14:03:00 [facility] 2022-03-19 Outpatient Gross, Na STLMLC STLMLC [id number] 2 [facility] 11:49:00 [facility] 2022-03-18 Outpatient Gross, Na STLMLC STLMLC [id number] 2 Common 09:34:00 [facility] 2022-01-12 Outpatient Gross, Na STLMLC STLMLC [id number] 2 Common 09:06:01 [facility] 2021-08-01 Outpatient Gross, Na STLMLC STLMLC [id number] 2 Common 08:48:01 [facility] 2021-07-30 Outpatient Gross, Na STLMLC STLMLC [id number] 2 Common 13:28:17 [facility] 2021-07-30 Outpatient Gross, Na STLMLC STLMLC [id number] 2 Common 13:26:32 [id number] [facility] 2021-07-30 Outpatient Gross, Na STLMLC STLMLC [id number] 2 Common 13:26:05 [id number] [facility] 2021-07-30 Outpatient Gross, Na STLMLC STLMLC [id number] 2 Common 13:25:32 [id number] [facility] 2021-07-30 Outpatient Gross, Na STLMLC STLMLC [id number] 2 Common 12:53:17 [id number] [facility] 2021-07-30 Outpatient Gross, Na STLMLC STLMLC [id number] 2 Common 12:51:48 [id number] [facility] 2021-07-30 Outpatient Gross, Na STLMLC STLMLC [id number] 2 Common 12:20:36 [id number] [facility] 2021-07-30 Outpatient Gross, Na STLMLC STLMLC [id number] 2 Common 12:19:58 [id number] [facility] 2021-07-30 Outpatient Gross, Na STLMLC STLMLC [id number] 2 Common 11:56:26 [id number] [facility] 2021-07-30 Outpatient Gross, Na STLMLC STLMLC [id number] 2 Common 11:55:39 [id number] [facility] 2021-07-30 Outpatient Gross, Na STLMLC STLMLC [id number] 2 Common 11:17:46 [id number] [facility] 2021-07-30 Outpatient Gross, Na STLMLC STLMLC [id number] 2 Common 11:16:50 [id number] [facility] 2021-07-30 Outpatient Gross, Na STLMLC STLMLC [id number] 2 Common 11:01:20 [id number] [facility] 2021-07-30 Outpatient Gross, Na STLMLC STLMLC [id number] 2 Common 11:01:04 [id number] [facility] 2021-07-30 Outpatient Stefanie Gross STLMLC STLMLC [id number] 2 Common 11:00: 42988 [facility] 2022-04-28 2022-04-28 (TEL) STLMLC STLMLC [id number] [facility] 00:00:00 00:00:00 [facility] 2022-03-23 2022-03-23 (TEL) STLMLC STLMLC [id number] [facility] 00:00:00 00:00:00 [facility] 2022-03-20 2022-03-20 OFFICE STLMLC STLMLC [id number] [facility] 00:00:00 00:00:00 VISIT EST Spir it PT LEVEL 3 - [facility] 2022-03-12 2022-03-12 (TEL) STLMLC STLMLC [id number] [facility] 00:00:00 00:00:00 [facility] 2022-03-10 2022-03-10 (TEL) STLMLC STLMLC [id number] [facility] 00:00:00 00:00:00 [facility] 2022-02-03 2022-02-03 OFFICE STLMLC STLMLC [id number] [facility] 00:00:00 00:00:00 VISIT [facility] PT [facility] LEVEL 4 [facility] 2022-02-03 2022-02-03 (TEL) STLMLC STLMLC [id number] [facility] 00:00:00 00:00:00 [facility] 2022-01-15 2022-01-15 OFFICE STLMLC STLMLC [id number] [facility] 00:00:00 00:00:00 VISIT NEW [facility] it PT LEVEL 2 - [facility] 2022-01-07 2022-01-07 (TEL) STLMLC STLMLC [id number] [facility] 00:00:00 00:00:00 [facility] 2021-11-03 2021-11-03 OFFICE STLMLC STLMLC [id number] [facility] 00:00:00 00:00:00 [facility] ESTAB PT - [facility] LEVEL 4 [facility] 2021-10-13 2021-10-13 (TEL) STLMLC STLMLC [id number] [facility] 00:00:00 00:00:00 [facility] - [facility] 2021-08-01 2021-08-01 OFFICE STLMLC STLMLC [id number] [facility] 00:00:00 00:00:00 VISIT EST Spir it PT LEVEL 3 - [facility] 2021-08-01 2021-08-01 SUB ANNUAL STLMLC STLMLC [id number] Common 00:00:00 00:00:00 MCR [facility] WELLNESS - [facility]I VISIT [facility] 2021-07-23 2021-07-23 (COVID STLMLC STLMLC [id number] [facility] 00:00:00 00:00:00 Inj) COVID Spi rit Injection - [facility] 2021-07-18 2021-07-18 (TEL) STLMLC STLMLC [id number] [facility] 00:00:00 00:00:00 [facility] 2021-07-08 2021-07-08 (TEL) STLMLC STLMLC [id number] [facility] 00:00:00 00:00:00 [facility] 2021-07-08 2021-07-08 OL DIG E/M STLMLC STLMLC [id number] Common 00:00:00 00:00:00 SVC 11-20 Spir it MIN - [facility] 2021-04-22 2021-04-22 OFFICE STLMLC STLMLC [id number] [facility] 00:00:00 00:00:00 [facility] ESTAB PT - [facility] LEVEL 4 [facility] 2020-10-21 2020-10-21 Outpatient STLMLC STLMLC [id number] [facility] 00:00:00 00:00:00 [facility] 2020-10-17 2020-10-17 Outpatient STLMLC STLMLC [id number] [facility] 00:00:00 00:00:00 [facility] 2020-07-18 2020-07-18 Outpatient STLMLC STLMLC [id number] [facility] 00:00:00 00:00:00 [facility] 2020-05-17 2020-05-17 Outpatient STLMLC STLMLC [id number] [facility] 00:00:00 00:00:00 [facility] 2020-04-23 2020-04-23 Outpatient STLMLC STLMLC [id number] [facility] 00:00:00 00:00:00 [facility] 2020-04-12 2020-04-12 Outpatient STLMLC STLMLC [id number] [facility] 00:00:00 00:00:00 [facility] 2020-04-08 2020-04-08 Outpatient STLMLC STLMLC [id number] [facility] 00:00:00 00:00:00 [facility] 2020-02-08 2020-02-08 [facility] [id number] [facility] 11:00:00 11:00:00 t Specialty/U Sp anne Specialty rology - [facility] 2020-01-04 2020-01-04 [facility] [id number] [facility] 15:30:00 15:30:00 t Specialty/U Sp anne Specialty rology - [facility] /[facility]rology Clinic [facility] 2019-10-20 2019-10-20 [facility] [id number] [facility] 09:40:00 09:40:[address] [facility] 2019-09-14 2019-09-14 [facility] [id number] Common 08:15:00 08:15:[address] [facility] 2019-07-21 2019-07-21 [facility] [id number] Common 08:20:00 08:20:[address] [facility] 2019-05-26 2019-05-26 [facility] [id number] Common 14:00:00 14:00:[address] [facility] 2019-04-20 2019-04-20 [facility] [id number] Common 11:00:00 11:00:[address] [facility] 2019-04-17 2019-04-17 [facility] [id number] Common 16:07:00 16:07:[address] [facility] 2019-02-24 2019-02-24 [facility] [id number] Common 09:20:00 09:20:[address] [facility] 2019-01-04 2019-01-04 [facility] [id number] Common 13:50:00 13:50:[address] [facility] 2019-01-02 2019-01-02 [facility] [id number] [facility] 13:21:00 13:21:[address] [facility] 2018-09-28 2018-09-28 [facility] [id number] Common 10:45:00 10:45:[address] [facility] 2018-09-12 2018-09-12 [facility] [id number] Common 11:55:00 11:55:[address] [facility] 2018-08-22 2018-08-22 [facility] [id number] Common 08:30:00 08:30:[address] [facility] 2018-07-21 2018-07-21 [facility] [id number] Common 13:51:00 13:51:[address] [facility] 2018-07-21 2018-07-21 [facility] [id number] Common 09:00:00 09:00:[address] [facility] 2018-06-23 2018-06-23 [facility] [id number] Common 16:01:00 16:01:[address] [facility] 2018-06-09 2018-06-09 [facility] [id number] Common 10:45:00 10:45:[address] [facility] 2018-02-22 2018-02-22 [facility] [id number] Common 11:00:00 11:00:00 [place] [address] Spir it Drive [facility] 2018-02-03 2018-02-03 [facility] [id number] Common 09:30:00 09:30:[address] Sp[address] [facility] Results This patient has no known results.
--- NOTE | 2022-05-20 21:53 | EDPHYS ---
Physician Documentation [facility] Name: Socorro Ren Age: 76 yrs Sex: Male : 1945 Arrival Date: 05/20/2022 Time: 20:58 Bed IW1 Private MD: ED Physician Des Fishman HPI: 05/20 21:50 This 76 yrs old Male presents to ER via Unassigned with complaints of Post kb Surgical Bleeding. 21:50 The patient presents with a nose bleed, occurred while sneezing, that is small amount kb and the bleeding resolved prior to arrival. Onset: The symptoms/episode began/occurred just prior to arrival. Modifying factors: The symptoms are alleviated by nothing. the symptoms are aggravated by nothing. Associated signs and symptoms: Loss of consciousness: the patient experienced no loss of consciousness. Severity of symptoms: At their worst the symptoms were moderate in the emergency department the symptoms have resolved. The patient has experienced similar episodes in the past. The patient has been recently seen by a physician:. Pt reports Dr Noyola cauterized right nare today at 1230 due to nosebleeds. States he was at home and started sneezing a lot then started bleeding from right nare again. Bleeding now resolved, but he was worried that he messed something up. . Historical: - Home Meds: 22:11 amlodipine 5 mg tab 1 tab once daily [Active]; losartan 50 mg Oral tab 1 tab once daily kd3 [Active]; - PMHx: 22:11 Glaucoma; Hypertension; kd3 - Immunization history:: Adult Immunizations up to date. - Social history:: Smoking status: unknown. ROS: 21:48 Constitutional: Negative for fever, chills, and weight loss. kb 21:48 ENT: Positive for nose bleed. 21:48 All other systems are negative. Exam: 21:48 Constitutional: This is a well developed, well nourished patient who is awake, alert, kb and in no acute distress. Head/Face: Normocephalic, atraumatic. ENT: Moist Mucous membranes Cardiovascular: Regular rate and rhythm with a normal S1 and S2. No gallops, murmurs, or rubs. No pulse deficits. Respiratory: Respirations even and unlabored. No increased work of breathing. Talking in full sentences Skin: Warm, dry with normal turgor. Normal color. MS/ Extremity: Pulses equal, no cyanosis. Neurovascular intact. Full, normal range of motion. Neuro: Awake and alert, GCS 15, oriented to person, place, time, and situation. Moves all extremities. Normal gait. 21:48 ENT: Nose: clotted blood, in right nare. Vital Signs: 22:10 BP 145 / 74; Pulse 91; Resp 18; Temp 98.8; Pulse Ox 98% ; kd3 MDM: 21:48 Patient medically screened. kb 21:48 Data reviewed: vital signs, nurses notes. Data interpreted: Pulse oximetry: on room air kb is 99 %. Interpretation: normal. Counseling: I had a detailed discussion with the patient and/or guardian regarding: the historical points, exam findings, and any diagnostic results supporting the discharge/admit diagnosis, the need for outpatient follow up, an ENT specialist, to return to the emergency department if symptoms worsen or persist or if there are any questions or concerns that arise at home. ED course: Pt will call Dr Noyola in the morning. Administered Medications: No medications were administered Disposition: 05/21 03:13 Co-signature as Attending Physician, Des Fishman MD I agree with the assessment and rt plan of care. Disposition Summary: 05/20/22 21:52 Discharge Ordered Location: Home kb Condition: Stable kb Diagnosis - Epistaxis kb Followup: kb - With: Emergency Department - When: As needed - Reason: Worsening of condition Followup: kb - With: Private Physician - When: 2 - 3 days - Reason: Recheck today's complaints, Continuance of care, Re-evaluation by your physician Discharge Instructions: - Discharge Summary Sheet kb - Nosebleed, Adult, [id number] kb Forms: - Medication Reconciliation Form kb - Thank You Letter kb - Antibiotic Education kb - Prescription Opioid Use kb Signatures: Mari Wallace FNP-C FNP-Ckb Doucette, Kyli, RN RN kd3 Des Fishman MD MD rt
--- NOTE | 2022-05-20 22:13 | ER ---
Nurse's Notes [facility] Name: Socorro Ren Age: 76 yrs Sex: Male : 1945 Arrival Date: 05/20/2022 Time: 20:58 Bed IW1 Private MD: Diagnosis: Epistaxis Presentation: 05/20 22:10 Chief complaint: Patient states: nosebleed. Coronavirus screen: Vaccine status: kd3 unknown. Ebola Screen: No symptoms or risks identified at this time. Initial Sepsis Screen: Does the patient meet any 2 criteria? No. Patient's initial sepsis screen is negative. Does the patient have a suspected source of infection? No. Patient's initial sepsis screen is negative. Risk Assessment: Do you want to hurt yourself or someone else? Patient reports no desire to harm self or others. Onset of symptoms was May 20, 2022. 22:10 Method Of Arrival: Ambulatory kd3 22:10 Acuity: MAREK 5 kd3 Triage Assessment: 22:11 General: Appears in no apparent distress. Behavior is calm, cooperative. Pain: Denies kd3 pain. Historical: - Home Meds: 22:11 amlodipine 5 mg tab 1 tab once daily [Active]; losartan 50 mg Oral tab 1 tab once daily kd3 [Active]; - PMHx: 22:11 Glaucoma; Hypertension; kd3 - Immunization history:: Adult Immunizations up to date. - Social history:: Smoking status: unknown. Screenin:12 Abuse screen: Denies threats or abuse. Denies injuries from another. Nutritional kd3 screening: No deficits noted. Tuberculosis screening: No symptoms or risk factors identified. Fall Risk None identified. Assessment: 22:11 Reassessment: Pt seen by Rodrigo. Pt will call Dr. Noyola in the morning for an kd3 appointment. 22:12 Reassessment: Pt left without signing discharge paperwork. kd3 Vital Signs: 22:10 BP 145 / 74; Pulse 91; Resp 18; Temp 98.8; Pulse Ox 98% ; kd3 ED Course: 20:58 Patient arrived in ED. bp1 21:48 Mari Wallace FNP-C is PHCP. kb 21:48 Des Fishman MD is Attending Physician. kb 22:10 Sandy Gomez RN is Primary Nurse. kd3 22:11 Triage completed. kd3 22:11 Arm band placed on right wrist. kd3 22:12 Patient has correct armband on for positive identification. kd3 22:12 No provider procedures requiring assistance completed. Patient did not have IV access kd3 during this emergency room visit. Administered Medications: No medications were administered Medication: 22:12 VIS not applicable for this client. kd3 Outcome: 21:52 Discharge ordered by . douglas 22:12 Discharged to home ambulatory. kd3 22:12 Condition: stable 22:12 Discharge instructions given to patient, Instructed on discharge instructions, follow up and referral plans. Demonstrated understanding of instructions, follow-up care. 22:13 Patient left the ED. kd3 Signatures: Mari Wallace, ASSISTANT DEPARTMENT MANAGER-C ASSISTANT DEPARTMENT MANAGER-Tamy Calderon Kyli, RN RN kd3
[2022-05-20 22:21] VITALS: BP 145/74; TEMP 98.8; O2SAT 98
== END 2022-05-20 22:13 | disposition home or self-care (01) ==
LOC: ER 20:56
DX: R04.0 Epistaxis (principal); I10 Essential (primary) hypertension
CPT/HCPCS: 99281

== ENCOUNTER 2025-04-07 16:31 | Inpatient (IN) | payer MEDICARE, OTHER ==
--- OUTSIDE RECORDS SUMMARY | 2025-04-07 16:37 | XMS REPORT | Continuity of Care Document ---
Author Name Unknown Address [address] [place] [address] [facility] [place] Address [address] [place] [address] Care Team Providers Care Plant Packer Name Role Phone UTEMONSE SOLIS Primary Care Physician Un available Chan Oscar Attending Clinician Unavailable Stefanie Jones Attending Clinician Unavailable Lyric Sorenson Attending Clinician Unavailable ESTELLA, Stefanie L Attending Clinician Unavailable DIMAS HUMPHRIES Attending Clinician Unavailable CIRO BOSS Attending Clinician Unavailable [id number] Attending Clinician Unavailable LAB90 Attending Clinician Unavailable IZABELA AGUSTIN Attending Clinician UnavailIzabela Cortés Attending Clinician Cecil OLIVERA, Romana Thomas Attending Clinician Ladan vailable Etta Hsu MD Attending Clinician [phone] ETTA HSU Attending Clinician Unavailable Jeff OLIVERA, Angelica Joe Attending Clinician Unavailse Conner MD, Davin Attending Clinician [phone] Doctor Unassigned, Pimlico Attending Clinician U LENA Serrano Admitting Clinician Unavailable Etta Hsu MD Admitting Clinician [phone] ETTA HSU Admitting Clinician Unavailable Payers Payer Name Policy Type Policy Number Effective Date Expirati on Date Source [facility] AARP MCR Advantage (HMO-POS) 53 [id number] 2021 00:00:00 [facility] [place] 1 HMO 7 [id number] 2022 00:00:00 [employer]LL[employer]/AARP MEDICARE ADVANTAGE [id number] 2022 00:00:00 Problems Condition Name Condition Details Condition Category Status Onset Date Resolution Date Last Treatment Date Treating Clinician Comments Source Mixed hyperlipid emia Mixed hyperlipid emia Disease Active 2022-07 0 00:00: 00 Kim Seybold - Externa l Well adult exam Well adult exam Disease Active 01-19 00:00: 00 Kim Seybold - Externa l Obesity Obesity Disease Active 01-19 00:00: 00 Kim Seybold - Externa l History of hand surgery History of hand surgery Disease Active 12-17 00:00: 00 Overview: Formattin g of this note might be different from the original. Pathology : Giant cell tumor Kim Seybold - Externa l Hypertensi on Hypertensi on Disease Active 12-17 00:00: 00 Kim Seybold - Externa l Mass of right wrist Mass of right wrist Disease Active 4-20 00:00: 00 Overview: Formattin g of this note might be different from the original. Added automatic ally from request for surgery [id number] [facility] Enlarged prostate Enlarged prostate Problem Common [facility] Primary osteoarthr itis, right hand Primary osteoarthr itis, right hand Problem [facility] Primary osteoarthr itis, left hand Primary osteoarthr itis, left hand Problem [facility] Elevated PSA Elevated PSA Problem [facility] Prostate nodule Prostate nodule Problem [facility] Obesity (BMI 30-39.9) Obesity (BMI 30-39.9) Problem [facility] Pain, joint, hand, right Pain, joint, hand, right Problem [facility] Pure hyperglyce ridemia Essential hypertrigl yceridemia Problem [facility] Dermatitis Dermatitis Problem Co mmon [facility] Psoriasis Psoriasis Problem Comm on [facility] Glaucoma Glaucoma Problem [facility] Osteoarthr itis of multiple joints Osteoarthr itis, multiple sites Problem [facility] 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 Problem [facility] Cataract Cataract Problem [facility] Sexual dysfunctio n Sexual dysfunctio n Problem [facility] Tinea unguium Tinea unguium Problem [facility] Essential hypertensi on Essential hypertensi on Problem [facility] Hyperglyce kenyetta Hyperglyce kenyetta Problem [facility] 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 itis of left shoulder Problem [facility] Pulmonary nodule, right Pulmonary nodule, right Problem [facility] Elevated serum globulin level Elevated serum globulin level Problem [facility] Seasonal allergic rhinitis, unspecifie d trigger Seasonal allergic rhinitis, unspecifie d trigger Problem [facility] (QFT) 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 (QFT) 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 Problem [facility] Atheroscle rosis of both carotid arteries Atheroscle rosis of both carotid arteries Problem [facility] Impotence of organic origin ED (erectile dysfunctio n) Problem [facility] Primary osteoarthr itis of both hips Primary osteoarthr itis of both hips Problem [facility] Grief Grief Problem [facility] Allergies, Adverse Reactions, Alerts Allergy Name Allergy Type Status Severity Reaction(s) Onset Date Inactive Date Treating Clinician Comments Source Levoflox acin Propensi ty to adverse reaction s Active Nausea Only 12-17 00:00: 00 Kim Seybold - Externa l Lisinopr il Propensi ty to adverse reaction s Active 12-17 00:00: 00 Other reaction( s): Unknown Kim Steinold - Externa l Terbinaf ine Propensi ty to adverse reaction s Active 12-17 00:00: 00 Other reaction( s): Unknown Kim Seybold - Externa l NO KNOWN ALLERGIE S Drug Class Active [facility] 8349 Drug allergy Active Unknown [facility] levoflox acin levoflox acin Active nausea [facility] lisinopr il lisinopr il Active Unknown [facility] Social History Social Habit Start Date Stop Date Quantity Comments Source Gender identity Ling Yang - External Sexual orientation K shauna Yang - External History of tobacco use Cigarette Smoker Kim bridges - External Alcohol intake 2023-04-30 00:00:00 2023-04-30 00:00:00 .86 /d Kim Yang - External History of Social function 2023-03-22 00:00:00 2023-03-22 00:00:00 Kim Yang - External Tobacco use and exposure 2022-12-17 00:00:00 2022-12-17 00:00:00 Smokeless tobacco non-user Kim Yang - External Education 2022-12-17 00:00:00 2022-12-17 00:00:00 6 Kim Yang - External Cigarettes smoked current (pack per day) - Reported 2022-12-17 00:00:00 2022-12-17 00:00:00 Kim Yang - External Cigarette pack-years 2022-12-17 00:00:00 2022-12-17 00:00:00 Kim Yang - External Alcohol Comment 2022-12-16 00:00:00 2022-12-16 00:00:00 socially Kim Yang - External Exposure to SARS-CoV-2 (event) 2022-10-31 00:00:00 2022-11-10 08:47:00 Not sure [facility] Sex Assigned At 1945 00:00:00 1945 00:00:00 Kim Yang - External Smoking Status Start Date Stop Date Source Tobacco smoking consumption unknown [facility] Ex-smoker 2022-12-17 00:00:00 2022-12-17 00:00:00 Kim Piña Never smoked tobacco [facility] Medications Ordered Medication Name Filled Medication Name Start Date Stop Date Current Medication? Ordering Clinician Indication Dosage Frequency Signature (SIG) Comments Components Source Acetaminoph en-Codeine 300-30 MG Acetaminoph en-Codeine 300-30 MG 9-04 00:00: 00 No 1{table t_as_ne eded} TID Acetaminop hen-Codein e 300-30 MG Cyclobenzap rine HCl 5 MG Cyclobenzap rine HCl 5 MG 0 8-14 00:00: 00 No 1{table t_at_be dtime_a s_neede d} QD Cyclobenza zaire HCl 5 MG SOLU-Medrol SOLU-Medrol 0 8-14 00:00: 00 No 125mg [facility] Naproxen 500 MG Naproxen 500 MG 0 6-03 00:00: 00 No QD Naproxen 500 MG Amoxicillin 500 MG Amoxicillin 500 MG 0 5-16 00:00: 00 No 1{table t} TID Amoxicilli n 500 MG Tamsulosin HCl 0.4 MG Tamsulosin HCl 0.4 MG 5-14 00:00: 00 No 1{capsu le} QD Tamsulosin HCl 0.4 MG Mupirocin 2 % Mupirocin 2 % 2-14 00:00: 00 No 1{appli cation} BID Mupirocin 2 % Chlorthalid one 25 MG Chlorthalid one 25 MG 0 5-07 00:00: 00 No 1{table t_in_th e_morni ng_with _food} QD Chlorthali done 25 MG Atorvastati n Calcium (Lipitor) 10 MG oral Tablet 2022-07 0-12 00:00: 00 18 00:00 :00 No [id number] 10mg Take 1 tablet (10 mg total) by mouth nightly. Kim earl Beaver-3 Fatty Acids (Fish Oil) 1000 MG oral Capsule 01-19 00:00: 00 Yes [id number] 1000mg Take 1 capsule (1,000 mg total) by mouth daily Kim earl Atorvastati n Calcium (Lipitor) 10 MG oral Tablet 01-19 00:00: 00 Yes [id number] 10mg Take 1 tablet (10 mg total) by mouth nightly Kim earl Beaver-3 Fatty Acids (Fish Oil) 1000 MG oral Capsule 01-13 00:00: 00 01-19 00:00 :00 No [id number] 1000mg Take 1 capsule (1,000 mg total) by mouth 2 times daily Kim earl Losartan Potassium (COZAAR) 100 MG oral Tablet 12-17 15:30: 11 12-17 00:00 :00 No 100mg Take 1 tablet (100 mg total) by mouth daily Kim earl Amlodipine Besylate (NORVASC) 5 MG oral Tablet 12-17 15:30: 11 12-17 00:00 :00 No 5mg Take 1 tablet (5 mg total) by mouth daily Kim earl Administere d Medications [facility]ication [facility] 15:22: 02 No Administer ed Medication sMedicatio n OrderMAR ActionActi on [facility] [id number] Kim earl Losartan Potassium (COZAAR) 100 MG oral Tablet 12-17 00:00: 00 Yes [id number] 100mg Take 1 tablet (100 mg total) by mouth every morning Kim earl Amlodipine Besylate 10 MG oral Tablet 12-17 00:00: 00 Yes [id number] 10mg Take 1 tablet (10 mg total) by mouth nightly Kim earl FENTanyl PF (SUBLIMAZE (PF)) injection 25 mcg 10-26 16:29: 57 10-26 19:35 :28 No 25ug 25 mcg, Slow IV Push, Q5MIN PRN, 4 doses, Starting on Wed10/26/22 at 1129, Until Wed10/26/22 at 1435, Routine, Pain (scale 4-6), [facility] phenylephri [facility] (VAZCULEP) injection 10-26 15:57: 00 10-26 16:33 :31 No Slow IV Push, CONTINUOUS PRN, Starting on Wed10/26/22 at 1057, Until Wed10/26/22 at 1133, Routine, Intra-op Univers [facility] sodium chloride 0.9 % irrigation solution 10-26 15:24: 00 10-26 16:36 :05 No PRN, Starting on Wed10/26/22 at 1024, Until Wed10/26/22 at 1136, [facility] ondansetron (ZOFRAN (PF)) injection 10-26 15:22: 00 10-26 16:33 :31 No Slow IV Push, ONCE INTRA PROCEDURE, Starting on Wed10/26/22 at 1022, Until Wed10/26/22 at 1133, Routine, [facility] phenylephri [facility] (VAZCULEP) injection 10-26 15:12: 00 10-26 16:33 :31 No Slow IV Push, ONCE INTRA PROCEDURE, Starting on Wed10/26/22 at 1012, Until Wed10/26/22 at 1133, Routine, [facility] dexamethaso ne (DECADRON PHOSPHATE) injection 10-26 15:12: 00 10-26 16:33 :31 No IV Push, ONCE INTRA PROCEDURE, Starting on Wed10/26/22 at 1012, Until Wed10/26/22 at 1133, Routine, [facility] ceFAZolin (ANCEF) injection 10-26 15:09: 00 10-26 16:33 :31 No Slow IV Push, ONCE INTRA PROCEDURE, Starting on Wed10/26/22 at 1009, Until Wed10/26/22 at 1133, NIKOLAS, Intra-op [facility] lidocaine 1% (XYLOCAINE) 100 mg/10 mL (1 %) injection 10-26 15:03: 00 10-26 16:33 :31 No Slow IV Push, ONCE INTRA PROCEDURE, Starting on Wed10/26/22 at 1003, Until Wed10/26/22 at 1133, Routine, Intra-op [facility] propofoL IV infusion 10-26 15:03: 00 10-26 16:33 :31 No Slow IV Push, ONCE INTRA PROCEDURE, Starting on Wed10/26/22 at 1003, Until Wed10/26/22 at 1133, Routine, Intra-op [facility] FENTanyl PF (SUBLIMAZE (PF)) injection 10-26 15:03: 00 10-26 16:33 :31 No Slow IV Push, ONCE INTRA PROCEDURE, Starting on Wed10/26/22 at 1003, Until Wed10/26/22 at 1133, Routine, Intra-op [facility] lactated ringers IV infusion 10-26 14:53: 00 10-26 16:33 :31 No IV Infusion, CONTINUOUS PRN, Starting on Wed10/26/22 at 0953, Until Wed10/26/22 at 1133, Routine, Intra-op Univers [facility] dexamethaso ne (DECADRON PHOSPHATE) injection 10-26 12:59: 00 10-26 16:33 :31 No Infiltrati on, ONCE INTRA PROCEDURE, Starting on Wed10/26/22 at 0759, Until Wed10/26/22 at 1133, Routine, Intra-op [facility] bupivacaine (preserv free) 0.5% (SENSORCAIN E MPF) 0.5 % (5 mg/mL) injection 10-26 12:59: 00 10-26 16:33 :31 No Infiltrati on, ONCE INTRA PROCEDURE, Starting on Wed10/26/22 at 0759, Until Wed10/26/22 at 1133, Routine, Intra-op [facility] lactated ringers IV infusion 1,000 mL 10-26 12:45: 00 10-26 12:51 :00 No 1000mL at 42 mL/hr, 1,000 mL, IV Infusion, ONCE, 1 dose, On Wed10/26/22 at 0745, Routine, DSU Pre-op [facility] HYDROcodone -acetaminop hen 5-325 mg tablet 10-26 00:00: 00 11-03 04:59 :00 No [id number] 1{tbl} Take 1 tablet by mouth every 6 (six) hours as needed for Pain (scale 4-6) or Pain (scale 7-10) for up to 7 days. Indication s: acute pain [facility] triamcinolo ne acetonide 0.1 % cream 08-28 00:00: 00 Yes APPLY THIN LAYER TO AFFECTED AREA ON SCALP, TRUNK, AND EXTREMITIE S TWICE A DAY FOR 2 WEEKS/ANGEL H [facility] amLODIPine 5 mg tablet 08-26 00:00: 00 Yes [facility] losartan 100 mg tablet 08-26 00:00: 00 Yes [facility] Kenalog (Triamcinol one) Kenalog (Triamcinol one) 2018-07 00:00: 00 No 40mg [facility] Tylenol Tylenol No Tylenol amLODIPine Besylate 10 MG amLODIPine Besylate 10 MG No 1{table t} QD amLODIPine Besylate 10 MG Atorvastati n Calcium 20 MG Atorvastati n Calcium 20 MG No 1{table t} Atorvastat in Calcium 20 MG Immunizations Ordered Immunization Name Filled Immunization Name Date Status Comments Source FLUZONE HIGH DOSE OVER 65 FLUZONE HIGH DOSE OVER 65 2022-05-08 12:16:00 Completed [facility] FLUZONE HIGH DOSE OVER 65 FLUZONE HIGH DOSE OVER 65 2022-05-08 12:16:[address] [facility] FLUZONE HIGH DOSE OVER 65 FLUZONE HIGH DOSE OVER 65 2022-05-08 12:16:00 Completed [facility] FLUZONE HIGH DOSE OVER 65 FLUZONE HIGH DOSE OVER 65 2022-05-08 12:16:00 Completed [facility] FLUZONE HIGH DOSE OVER 65 FLUZONE HIGH DOSE OVER 65 2022-05-08 12:16:00 Completed [facility] FLUZONE HIGH DOSE OVER 65 FLUZONE HIGH DOSE OVER 65 2022-05-08 12:16:00 Completed [facility] FLUZONE HIGH DOSE OVER 65 FLUZONE HIGH DOSE OVER 65 2022-05-08 12:16:00 Completed [facility] FLUZONE HIGH DOSE OVER 65 FLUZONE HIGH DOSE OVER 65 2022-05-08 12:16:00 Completed [facility] FLUZONE HIGH DOSE OVER 65 FLUZONE HIGH DOSE OVER 65 2022-05-08 12:16:00 Completed [facility] Influenza Virus Vaccine, High Dose, Age 65 And Up 2022-05-08 00:00:00 [facility] Influenza Virus Vaccine, High Dose, Age 65 And Up 2022-05-08 00:00:00 Completed Kim Seybold - External Moderna COVID-19 Vaccine (Low Dose Booster) Moderna COVID-19 Vaccine (Low Dose Booster) 2021-07-23 10:52:00 Completed [facility] Moderna COVID-19 Vaccine (Low Dose Booster) Moderna COVID-19 Vaccine (Low Dose Booster) 2021-07-23 10:52:00 Completed [facility] Moderna COVID-19 Vaccine (Low Dose Booster) Moderna COVID-19 Vaccine (Low Dose Booster) 2021-07-23 10:52:00 Completed [facility] Moderna COVID-19 Vaccine (Low Dose Booster) Moderna COVID-19 Vaccine (Low Dose Booster) 2021-07-23 10:52:00 Completed [facility] Moderna COVID-19 Vaccine (Low Dose Booster) Moderna COVID-19 Vaccine (Low Dose Booster) 2021-07-23 10:52:00 Completed [facility] Moderna COVID-19 Vaccine (Low Dose Booster) Moderna COVID-19 Vaccine (Low Dose Booster) 2021-07-23 10:52:00 Completed [facility] Moderna COVID-19 Vaccine (Low Dose Booster) Moderna COVID-19 Vaccine (Low Dose Booster) 2021-07-23 10:52:00 Completed [facility] Moderna COVID-19 Vaccine (Low Dose Booster) Moderna COVID-19 Vaccine (Low Dose Booster) 2021-07-23 10:52:00 Completed [facility] Moderna COVID-19 Vaccine (Low Dose Booster) Moderna COVID-19 Vaccine (Low Dose Booster) 2021-07-23 10:52:00 Completed [facility] Moderna COVID-19 Vaccine (Low Dose Booster) Moderna COVID-19 Vaccine (Low Dose Booster) 2021-07-23 10:52:00 Completed [facility] Moderna COVID-19 Vaccine (Low Dose Booster) Moderna COVID-19 Vaccine (Low Dose Booster) 2021-07-23 10:52:00 Completed [facility] Moderna COVID-19 Vaccine (Low Dose Booster) Moderna COVID-19 Vaccine (Low Dose Booster) 2021-07-23 10:52:00 Completed [facility] Moderna COVID-19 Vaccine (Low Dose Booster) Moderna COVID-19 Vaccine (Low Dose Booster) 2021-07-23 10:52:00 Completed [facility] Moderna COVID-19 Vaccine (Low Dose Booster) Moderna COVID-19 Vaccine (Low Dose Booster) 2021-07-23 10:52:00 Completed [facility] Covid-19 Vaccine Moderna (Spikevax), Mrna-lnp, Frank Protein, Pf 2021-07-23 00:00:00 Completed Kim Piña Covid-19 Vaccine Moderna (Spikevax), Mrna-lnp, Frank Protein, Pf 2021-07-23 00:00:00 Completed Kim Hernandez External Moderna COVID-19 Vaccine Moderna COVID-19 Vaccine 2020-10-02 09:56:00 Completed [facility] Moderna COVID-19 Vaccine Moderna COVID-19 Vaccine 2020-10-02 09:56:00 Completed [facility] Moderna COVID-19 Vaccine Moderna COVID-19 Vaccine 2020-10-02 09:56:00 Completed [facility] Moderna COVID-19 Vaccine Moderna COVID-19 Vaccine 2020-10-02 09:56:00 Completed [facility] Moderna COVID-19 Vaccine Moderna COVID-19 Vaccine 2020-10-02 09:56:00 Completed [facility] Moderna COVID-19 Vaccine Moderna COVID-19 Vaccine 2020-10-02 09:56:00 Completed [facility] Moderna COVID-19 Vaccine Moderna COVID-19 Vaccine 2020-10-02 09:56:00 Completed [facility] Moderna COVID-19 Vaccine Moderna COVID-19 Vaccine 2020-10-02 09:56:00 Completed [facility] Moderna COVID-19 Vaccine Moderna COVID-19 Vaccine 2020-10-02 09:56:00 Completed [facility] Moderna COVID-19 Vaccine Moderna COVID-19 Vaccine 2020-10-02 09:56:00 Completed [facility] Moderna COVID-19 Vaccine Moderna COVID-19 Vaccine 2020-10-02 09:56:00 Completed [facility] Moderna COVID-19 Vaccine Moderna COVID-19 Vaccine 2020-10-02 09:56:00 Completed [facility] Moderna COVID-19 Vaccine Moderna COVID-19 Vaccine 2020-10-02 09:56:00 Completed [facility] Moderna COVID-19 Vaccine Moderna COVID-19 Vaccine 2020-10-02 09:56:00 Completed [facility] Moderna COVID-19 Vaccine Moderna COVID-19 Vaccine 2020-10-02 09:56:00 Completed [facility] Covid-19 Vaccine Moderna (Spikevax), Mrna-lnp, Frank Protein, Pf 2020-10-02 00:00:00 Completed [facility] External Covid-19 Vaccine Moderna (Spikevax), Mrna-lnp, Frank Protein, Pf 2020-10-02 00:00:00 Completed [facility] External Moderna COVID-19 Vaccine Moderna COVID-19 Vaccine 2020-09-04 09:56:00 Completed [facility] Moderna COVID-19 Vaccine Moderna COVID-19 Vaccine 2020-09-04 09:56:00 Completed [facility] Moderna COVID-19 Vaccine Moderna COVID-19 Vaccine 2020-09-04 09:56:00 Completed [facility] Moderna COVID-19 Vaccine Moderna COVID-19 Vaccine 2020-09-04 09:56:00 Completed [facility] Moderna COVID-19 Vaccine Moderna COVID-19 Vaccine 2020-09-04 09:56:00 Completed [facility] Moderna COVID-19 Vaccine Moderna COVID-19 Vaccine 2020-09-04 09:56:00 Completed [facility] Moderna COVID-19 Vaccine Moderna COVID-19 Vaccine 2020-09-04 09:56:00 Completed [facility] Moderna COVID-19 Vaccine Moderna COVID-19 Vaccine 2020-09-04 09:56:00 Completed [facility] Moderna COVID-19 Vaccine Moderna COVID-19 Vaccine 2020-09-04 09:56:00 Completed [facility] Moderna COVID-19 Vaccine Moderna COVID-19 Vaccine 2020-09-04 09:56:00 Completed [facility] Moderna COVID-19 Vaccine Moderna COVID-19 Vaccine 2020-09-04 09:56:00 Completed [facility] Moderna COVID-19 Vaccine Moderna COVID-19 Vaccine 2020-09-04 09:56:00 Completed [facility] Moderna COVID-19 Vaccine Moderna COVID-19 Vaccine 2020-09-04 09:56:00 Completed [facility] Moderna COVID-19 Vaccine Moderna COVID-19 Vaccine 2020-09-04 09:56:00 Completed [facility] Moderna COVID-19 Vaccine Moderna COVID-19 Vaccine 2020-09-04 09:56:00 Completed [facility] Covid-19 Vaccine Moderna (Spikevax), Mrna-lnp, Frank Protein, Pf 2020-09-04 00:00:00 Completed Kim Yang - External Covid-19 Vaccine Moderna (Spikevax), Mrna-lnp, Frank Protein, Pf 2020-09-04 00:00:00 Completed Kim Yang - External Kenalog (Triamcinolone) Kenalog (Triamcinolone) 2019-05-26 15:09:00 Completed [facility] FluAD FluAD 2018-05-06 13:42:00 Completed [facility] FluAD FluAD 2018-05-06 13:42:00 Completed [facility] FluAD FluAD 2018-05-06 13:42:00 Completed [facility] FluAD FluAD 2018-05-06 13:42:00 Completed [facility] FluAD FluAD 2018-05-06 13:42:00 Completed [facility] FluAD FluAD 2018-05-06 13:42:00 Completed [facility] FluAD FluAD 2018-05-06 13:42:00 Completed [facility] FluAD FluAD 2018-05-06 13:42:00 Completed [facility] FluAD FluAD 2018-05-06 13:42:00 Completed [facility] FluAD FluAD 2018-05-06 13:42:00 Completed [facility] FluAD FluAD 2018-05-06 13:42:00 Completed [facility] FluAD FluAD 2018-05-06 13:42:00 Completed [facility] FluAD FluAD 2018-05-06 13:42:00 Completed [facility] FluAD FluAD 2018-05-06 13:42:00 Completed [facility] FluAD FluAD 2018-05-06 13:42:00 Completed [facility] Seasonal Trivalent Influenza Vaccine, Adjuvanted, Preserve 2018-05-06 00:00:00 Completed Kim Yang - External Seasonal Trivalent Influenza Vaccine, Adjuvanted, Preserve 2018-05-06 00:00:00 Completed Kim Yang - External Td Td 2018-02-22 11:43:00 Completed [facility] Td Td 2018-02-22 11:43:00 Completed [facility] Td Td 2018-02-22 11:43:00 Completed [facility] Td Td 2018-02-22 11:43:00 Completed [facility] Td Td 2018-02-22 11:43:00 Completed [facility] Td Td 2018-02-22 11:43:00 Completed [facility] Td Td 2018-02-22 11:43:00 Completed [facility] Td Td 2018-02-22 11:43:00 Completed [facility] Td Td 2018-02-22 11:43:00 Completed [facility] Td Td 2018-02-22 11:43:00 Completed [facility] Td Td 2018-02-22 11:43:00 Completed [facility] Td Td 2018-02-22 11:43:00 Completed [facility] Td Td 2018-02-22 11:43:00 Completed [facility] Td Td 2018-02-22 11:43:00 Completed [facility] Td Td 2018-02-22 11:43:00 Completed [facility] Tdap- (Boostrix, Adacel) 2018-02-22 00:00:00 Completed Kim Yang - External Tdap- (Boostrix, Adacel) 2018-02-22 00:00:00 Completed [facility] - External Td Td 2018-02-22 00:00:00 Completed [facility] Tdap- (Boostrix, Adacel) Unknown Completed [facility] External Seasonal Trivalent Influenza Vaccine, Adjuvanted, Preserve Unknown Completed [facility] - External Influenza Virus Vaccine, High Dose, Age 65 And Up Unknown Completed [facility] - External Covid-19 Vaccine Moderna (Spikevax), Mrna-lnp, Frank Protein, Pf Unknown Completed [facility] - External Tdap- (Boostrix, Adacel) Unknown Completed [facility] - External Seasonal Trivalent Influenza Vaccine, Adjuvanted, Preserve Unknown Completed [facility] - External Influenza Virus Vaccine, High Dose, Age 65 And Up Unknown Completed [facility] - External Covid-19 Vaccine Moderna (Spikevax), Mrna-lnp, Frank Protein, Pf Unknown Completed [facility] External Moderna COVID-19 Vaccine (Low Dose Booster) Moderna COVID-19 Vaccine (Low Dose Booster) Unknown Completed [facility] FluAD FluAD Unknown Completed [facility] Td Td Unknown Completed [facility] FLUZONE HIGH DOSE OVER 65 FLUZONE HIGH DOSE OVER 65 Unknown Completed [facility] Moderna COVID-19 Vaccine (Low Dose Booster) Moderna COVID-19 Vaccine (Low Dose Booster) Unknown Completed [facility] FluAD FluAD Unknown Completed [facility] Td Td Unknown Completed [facility] FLUZONE HIGH DOSE OVER 65 FLUZONE HIGH DOSE OVER 65 Unknown Completed [facility] Moderna COVID-19 Vaccine (Low Dose Booster) Moderna COVID-19 Vaccine (Low Dose Booster) Unknown Completed [facility] FluAD FluAD Unknown Completed [facility] Td Td Unknown Completed [facility] FLUZONE HIGH DOSE OVER 65 FLUZONE HIGH DOSE OVER 65 Unknown Completed [facility] Fluad (aIIV4) - SDS - 0.5mL Fluad (aIIV4) - SDS - 0.5mL Unknown Completed [facility] Moderna COVID-19 Vaccine (Low Dose Booster) Moderna COVID-19 Vaccine (Low Dose Booster) Unknown Completed [facility] FluAD FluAD Unknown Completed [facility] Td Td Unknown Completed [facility] FLUZONE HIGH DOSE OVER 65 FLUZONE HIGH DOSE OVER 65 Unknown Completed [facility] Fluad (aIIV4) - SDS - 0.5mL Fluad (aIIV4) - SDS - 0.5mL Unknown Completed [facility] MODERNA COVID-19 VACCINE (LOW DOSE BOOSTER) MODERNA COVID-19 VACCINE (LOW DOSE BOOSTER) Unknown Completed [facility] FluAD FluAD Unknown Completed [facility] Td Td Unknown Completed [facility] FLUZONE HIGH DOSE OVER 65 FLUZONE HIGH DOSE OVER 65 Unknown Completed [facility] Prevnar 20 (PCV20) Prevnar 20 (PCV20) Unknown Completed [facility] Fluad (aIIV4) - SDS - 0.5mL Fluad (aIIV4) - SDS - 0.5mL [facility] MODERNA COVID-19 VACCINE (LOW DOSE BOOSTER) Unknown Completed [facility] FluAD FluAD Unknown Completed [facility] Td Td Unknown Completed [facility] FLUZONE HIGH DOSE OVER 65 FLUZONE HIGH DOSE OVER 65 Unknown Completed [facility] Prevnar 20 (PCV20) Prevnar 20 (PCV20) Unknown Completed [facility] Fluad (aIIV4) - SDS - 0.5mL Fluad (aIIV4) - SDS - 0.5mL Unknown Completed [facility] MODERNA COVID-19 VACCINE (LOW DOSE BOOSTER) MODERNA COVID-19 VACCINE (LOW DOSE BOOSTER) Unknown Completed [facility] FluAD FluAD Unknown Completed [facility] Td Td Unknown Completed [facility] FLUZONE HIGH DOSE OVER 65 FLUZONE HIGH DOSE OVER 65 Unknown Completed [facility] Prevnar 20 (PCV20) Prevnar 20 (PCV20) Unknown Completed [facility] Fluad (aIIV4) - SDS - 0.5mL Fluad (aIIV4) - SDS - 0.5mL Unknown Completed [facility] MODERNA COVID-19 VACCINE (LOW DOSE BOOSTER) MODERNA COVID-19 VACCINE (LOW DOSE BOOSTER) Unknown Completed [facility] FluAD FluAD Unknown Completed [facility] Td Td Unknown Completed [facility] FLUZONE HIGH DOSE OVER 65 FLUZONE HIGH DOSE OVER 65 Unknown Completed [facility] Prevnar 20 (PCV20) Prevnar 20 (PCV20) Unknown Completed [facility] Fluad (aIIV4) - SDS - 0.5mL Fluad (aIIV4) - SDS - 0.5mL Unknown Completed [facility] MODERNA COVID-19 VACCINE (LOW DOSE BOOSTER) MODERNA COVID-19 VACCINE (LOW DOSE BOOSTER) Unknown Completed [facility] FluAD FluAD Unknown Completed [facility] Td Td Unknown Completed [facility] FLUZONE HIGH DOSE OVER 65 FLUZONE HIGH DOSE OVER 65 Unknown Completed [facility] Prevnar 20 (PCV20) Prevnar 20 (PCV20) Unknown Completed [facility] Fluad (aIIV4) - SDS - 0.5mL Fluad (aIIV4) - SDS - 0.5mL Unknown Completed [facility] MODERNA COVID-19 VACCINE (LOW DOSE BOOSTER) MODERNA COVID-19 VACCINE (LOW DOSE BOOSTER) Unknown Completed [facility] FluAD FluAD Unknown Completed [facility] Td Td Unknown Completed [facility] FLUZONE HIGH DOSE OVER 65 FLUZONE HIGH DOSE OVER 65 Unknown Completed [facility] Vital Signs Vital Name Observation Time Observation Value Comments Ruthy golden height 2025-03-08 08:00:00 66 [in_i] Commo n [facility] weight 2025-03-08 08:00:00 194.6 [facility]] [facility] 2025-03-08 08:00:00 98.6 [degF] Com [facility] bmi 2025-03-08 08:00:00 31.41 kg/m2 Comm on [facility] oximetry 2025-03-08 08:00:00 96 % Commo n [facility] respiratory rate 2025-03-08 08:00:00 16 /min [facility] height 2025-02-15 09:00:00 66 [in_i] Commo n [facility] weight 2025-02-15 09:00:00 194.8 [lb_av] [facility] 2025-02-15 09:00:00 98.9 [degF] Com [facility] bmi 2025-02-15 09:00:00 31.44 kg/m2 Comm on [facility] oximetry 2025-02-15 09:00:00 96 % Commo n [facility] respiratory rate 2025-02-15 09:00:00 16 /min [facility] blood pressure systolic 2025-02-15 09:00:00 138 mm[Hg] [facility] blood pressure diastolic 2025-02-15 09:00:00 70 mm[Hg] [facility] height 2024-12-19 16:00:00 66 [in_i] Commo n [facility] weight 2024-12-19 16:00:00 198.4 [lb_av] Co [facility] [place] temperature 2024-12-19 16:00:00 98.4 [degF] Com [facility] bmi 2024-12-19 16:00:00 32.02 kg/m2 Comm on [facility] oximetry 2024-12-19 16:00:00 94 % Commo n [facility] blood pressure systolic 2024-12-19 16:00:00 138 mm[Hg] [facility] blood pressure diastolic 2024-12-19 16:00:00 82 mm[Hg] [facility] height 2024-12-05 10:00:00 66 [in_i] Commo n [facility] weight 2024-12-05 10:00:00 196.2 [lb_av] Co mmon [facility] temperature 2024-12-05 10:00:00 98.1 [degF] Com [facility] bmi 2024-12-05 10:00:00 31.66 kg/m2 Comm on [facility] oximetry 2024-12-05 10:00:00 94 % Commo n [facility] blood pressure systolic 2024-12-05 10:00:00 154 mm[Hg] [facility] blood pressure diastolic 2024-12-05 10:00:00 76 mm[Hg] [facility] height 2024-11-15 09:00:00 66 [in_i] Commo n [facility] weight 2024-11-15 09:00:00 199.8 [lb_av] Co mmon [facility] temperature 2024-11-15 09:00:00 98.2 [degF] Com [facility] bmi 2024-11-15 09:00:00 32.25 kg/m2 Comm on [facility] oximetry 2024-11-15 09:00:00 97 % Commo n [facility] blood pressure systolic 2024-11-15 09:00:00 138 mm[Hg] Common [facility] blood pressure diastolic 2024-11-15 09:00:00 74 mm[Hg] [facility] height 2024-08-18 09:00:00 66 [in_i] Commo n [facility] weight 2024-08-18 09:00:00 199.4 [lb_av] Co mmon [facility] temperature 2024-08-18 09:00:00 98.1 [degF] Com mon [facility] bmi 2024-08-18 09:00:00 32.18 kg/m2 Comm on [facility] oximetry 2024-08-18 09:00:00 99 % Commo n [facility] respiratory rate 2024-08-18 09:00:00 16 /min [facility] height 2024-08-18 09:00:00 66 [in_i] Commo n [facility] weight 2024-08-18 09:00:00 199.4 [lb_av] Co mmon [facility] temperature 2024-08-18 09:00:00 98.1 [degF] Com [facility] bmi 2024-08-18 09:00:00 32.18 kg/m2 Comm on [facility] oximetry 2024-08-18 09:00:00 99 % Commo n [facility] blood pressure systolic 2024-08-18 09:00:00 160 mm[Hg] [facility] blood pressure diastolic 2024-08-18 09:00:00 72 mm[Hg] [facility] height 2024-02-16 09:40:00 66 [in_i] Commo n [facility] weight 2024-02-16 09:40:00 190.4 [lb_av] Co [facility] [place] temperature 2024-02-16 09:40:00 98.6 [degF] Com mon [facility] bmi 2024-02-16 09:40:00 30.73 kg/m2 Comm on [facility] oximetry 2024-02-16 09:40:00 95 % Commo n [facility] respiratory rate 2024-02-16 09:40:00 16 /min [facility] blood pressure systolic 2024-02-16 09:40:00 136 mm[Hg] Common [facility] blood pressure diastolic 2024-02-16 09:40:00 72 mm[Hg] [facility] height 2023-11-16 09:40:00 66 [in_i] Commo n [facility] weight 2023-11-16 09:40:00 190.8 [lb_av] Co mmon [facility] temperature 2023-11-16 09:40:00 98.4 [degF] Com mon [facility] bmi 2023-11-16 09:40:00 30.79 kg/m2 Comm on [facility] oximetry 2023-11-16 09:40:00 97 % Commo n [facility] respiratory rate 2023-11-16 09:40:00 16 /min [facility] blood pressure systolic 2023-11-16 09:40:00 142 mm[Hg] [facility] blood pressure diastolic 2023-11-16 09:40:00 74 mm[Hg] [facility] height 2023-11-09 10:40:00 66 [in_i] Commo n [facility] weight 2023-11-09 10:40:00 193.8 [lb_av] Co mmon [facility] temperature 2023-11-09 10:40:00 98.7 [degF] Com [facility] bmi 2023-11-09 10:40:00 31.28 kg/m2 Comm on [facility] oximetry 2023-11-09 10:40:00 93 % Commo n [facility] respiratory rate 2023-11-09 10:40:00 16 /min Common [facility] blood pressure systolic 2023-11-09 10:40:00 164 mm[Hg] Common [facility] blood pressure diastolic 2023-11-09 10:40:00 72 mm[Hg] [facility] height 2023-08-11 09:40:00 66 [in_i] Commo n [facility] weight 2023-08-11 09:40:00 194.0 [lb_av] Co mmon [facility] temperature 2023-08-11 09:40:00 98.7 [degF] Com [facility] bmi 2023-08-11 09:40:00 31.31 kg/m2 Comm on [facility] oximetry 2023-08-11 09:40:00 97 % Commo n [facility] respiratory rate 2023-08-11 09:40:00 16 /min [facility] blood pressure systolic 2023-08-11 09:40:00 138 mm[Hg] Common [facility] blood pressure diastolic 2023-08-11 09:40:00 72 mm[Hg] [facility] height 2023-08-11 10:00:00 66 [in_i] Commo n [facility] weight 2023-08-11 10:00:00 194.0 [lb_av] Co mmon [facility] temperature 2023-08-11 10:00:00 98.7 [degF] Com mon [facility] bmi 2023-08-11 10:00:00 31.31 kg/m2 Comm on [facility] oximetry 2023-08-11 10:00:00 97 % Commo n [facility] respiratory rate 2023-08-11 10:00:00 16 /min [facility] blood pressure systolic 2023-08-11 10:00:00 138 mm[Hg] [facility] blood pressure diastolic 2023-08-11 10:00:00 72 mm[Hg] [facility] height 2023-05-06 13:00:00 66 [in_i] Commo n [facility] weight 2023-05-06 13:00:00 193 [lb_av] Comm on [facility] temperature 2023-05-06 13:00:00 98.6 [degF] Com mon [facility] bmi 2023-05-06 13:00:00 31.15 kg/m2 Comm on [facility] oximetry 2023-05-06 13:00:00 95 % Commo n [facility] respiratory rate 2023-05-06 13:00:00 16 /min [facility] blood pressure systolic 2023-05-06 13:00:00 130 mm[Hg] [facility] blood pressure diastolic 2023-05-06 13:00:00 68 mm[Hg] [facility] Systolic blood pressure 2023-04-30 19:54:00 179 mm[Hg] Kim Long [facility] - External Diastolic blood pressure 2023-04-30 19:54:00 80 mm[Hg] [facility] Long [facility] - External Heart rate 2023-04-30 19:54:00 85 /min Omar Yang - External Body temperature 2023-04-30 19:54:00 36.56 Freya Kim Haynesybold - External Respiratory rate 2023-04-30 19:54:00 16 /min Kim Yang - External Body height 2023-04-30 19:54:00 167.6 cm Ling Yang - External Body weight 2023-04-30 19:54:00 88.633 kg Ling Yang - External BMI 2023-04-30 19:54:00 31.54 kg/m2 Ling Yang - External Oxygen saturation in Arterial blood by Pulse oximetry 2023-04-30 19:54:00 96 /min Kmi Seybo ld - External Systolic blood pressure 2023-04-21 18:23:00 110 mm[Hg] Kim Seybo ld - External Diastolic blood pressure 2023-04-21 18:23:00 60 mm[Hg] Kim Seybo ld - External Body height 2023-04-21 18:09:00 167.6 cm Ling ey Seybold - External Body weight 2023-04-21 18:09:00 88.451 kg Ling ey Seybold - External BMI 2023-04-21 18:09:00 31.47 kg/m2 Ling ey Seybold - External Oxygen saturation in Arterial blood by Pulse oximetry 2023-04-21 18:09:00 99 /min Kim Seybo ld - External Heart rate 2023-04-21 18:09:00 76 /min Broderickse y Seybold - External Body temperature 2023-04-21 18:09:00 37.06 Freya Kim Seybold - External Respiratory rate 2023-04-21 18:09:00 15 /min Kim Seybold - External Systolic blood pressure 2023-01-19 18:24:00 134 mm[Hg] Kim Seybo ld - External Diastolic blood pressure 2023-01-19 18:24:00 64 mm[Hg] Kim Seybo ld - External Heart rate 2023-01-19 18:24:00 65 /min Kelse y Seybold - External Body temperature 2023-01-19 18:24:00 36.33 Freya Kim Seybold - External Respiratory rate 2023-01-19 18:24:00 20 /min Kim Seybold - External Body height 2023-01-19 18:24:00 167.6 cm Ling ey Seybold - External Body weight 2023-01-19 18:24:00 89.449 kg Ling ey Seybold - External BMI 2023-01-19 18:24:00 31.83 kg/m2 Ling ey Seybold - External Oxygen saturation in Arterial blood by Pulse oximetry 2023-01-19 18:24:00 97 /min Kim Seybo ld - External Systolic blood pressure 2022-12-17 20:45:00 145 mm[Hg] Kim Seybo ld - External Diastolic blood pressure 2022-12-17 20:45:00 70 mm[Hg] Kim Haynesybo ld - External Heart rate 2022-12-17 20:19:00 98 /min Omar meek Seybold - External Body temperature 2022-12-17 20:19:00 36.5 Freya Kim Haynesybold - External Respiratory rate 2022-12-17 20:19:00 14 /min Kim Haynesybold - External Body height 2022-12-17 20:19:00 167.6 cm Ling syed Seybold - External Body weight 2022-12-17 20:19:00 87.091 kg Ling syed Seybold - External BMI 2022-12-17 20:19:00 30.99 kg/m2 Ling syed Seybold - External Oxygen saturation in Arterial blood by Pulse oximetry 2022-12-17 20:19:00 99 /min Kim Steino ld - External Systolic blood pressure 2022-11-10 13:56:00 164 mm[Hg] [facility] Diastolic blood pressure 2022-11-10 13:56:00 83 mm[Hg] [facility] Heart rate 2022-11-10 13:56:00 84 /min [facility] Body temperature 2022-11-10 13:56:00 36.11 Freya [facility] Body height 2022-11-10 13:56:00 [facility].6 [facility] 2022-11-10 13:56:00 85.276 [facility] BMI 2022-11-10 13:56:00 30.34 kg/m2 [facility] Systolic blood pressure 2022-10-26 17:10:00 134 mm[Hg] [facility] Diastolic blood pressure 2022-10-26 17:10:00 97 mm[Hg] [facility] Heart rate 2022-10-26 17:10:00 87 /min [facility] Respiratory rate 2022-10-26 17:10:00 21 /min [facility] Oxygen saturation in Arterial blood by Pulse oximetry 2022-10-26 17:10:00 94 /min [facility] Body temperature 2022-10-26 16:33:00 35.94 Freya [facility] Body height 2022-10-26 12:38:00 167.6 cm [facility] 2022-10-26 12:38:00 84.823 kg Univ [facility] BMI 2022-10-26 12:38:00 30.18 kg[facility]m2 [facility] height 2022-10-26 12:38:00 167.6 cm [facility] Body weight 2022-10-26 12:38:00 84.823 kg [facility] BMI 2022-10-26 12:38:00 30.18 kg/m2 [facility] Systolic blood pressure 2022-10-26 12:37:00 152 mm[Hg] [facility] Diastolic blood pressure 2022-10-26 12:37:00 80 mm[Hg] [facility] Heart rate 2022-10-26 12:37:00 87 /min [facility] Body temperature 2022-10-26 12:37:00 36.56 Freya [facility] Respiratory rate 2022-10-26 12:37:00 17 /min [facility] Oxygen saturation in Arterial blood by Pulse oximetry 2022-10-26 12:37:00 96 /min [facility] Systolic blood pressure 2022-10-21 14:47:00 157 mm[Hg] [facility] Diastolic blood pressure 2022-10-21 14:47:00 78 mm[Hg] [facility] Heart rate 2022-10-21 14:47:00 121 /min [facility] Body temperature 2022-10-21 14:47:00 35.56 Freya [facility] Body height 2022-10-21 14:47:00 167.6 cm [facility] Body weight 2022-10-21 14:47:00 84.868 kg [facility] BMI 2022-10-21 14:47:00 30.20 kg/m2 [facility] Systolic blood pressure 2022-09-02 14:57:00 172 mm[Hg] [facility] Diastolic blood pressure 2022-09-02 14:57:00 71 mm[Hg] [facility] Heart rate 2022-09-02 14:57:00 87 /[facility] 2022-09-02 14:57:00 36.17 Freya [facility] Body height 2022-09-02 14:57:00 167.6 cm [facility] Body weight 2022-09-02 14:57:00 83.87 kg [facility] BMI 2022-09-02 14:57:00 29.84 kg/m2 [facility] height 2022-07-29 09:30:00 65.00 [in_i] Com [facility] weight 2022-07-29 09:30:00 184 [lb_av] Comm on [facility] temperature 2022-07-29 09:30:00 98.4 [degF] Com [facility] bmi 2022-07-29 09:30:00 30.62 kg/m2 Comm on [facility] blood pressure systolic 2022-07-29 09:30:00 132 mm[Hg] Common [facility] blood pressure diastolic 2022-07-29 09:30:00 80 mm[Hg] Common [facility] height 2022-07-13 09:00:00 65.00 [in_i] Com [facility] weight 2022-07-13 09:00:00 184.3 [lb_av] Co mmon [facility] temperature 2022-07-13 09:00:00 98.0 [degF] Com [facility] bmi 2022-07-13 09:00:00 30.67 kg/m2 Comm on [facility] blood pressure systolic 2022-07-13 09:00:00 138 mm[Hg] [facility] blood pressure diastolic 2022-07-13 09:00:00 74 mm[Hg] [facility] height 2022-05-08 11:00:00 65.00 [in_i] Com [facility] weight 2022-05-08 11:00:00 186.8 [lb_av] Co [facility] [place] temperature 2022-05-08 11:00:00 98.0 [degF] Com [facility] bmi 2022-05-08 11:00:00 31.08 kg/m2 Comm on [facility] oximetry 2022-05-08 11:00:00 95 % Commo n [facility] respiratory rate 2022-05-08 11:00:00 16 /min [facility] blood pressure systolic 2022-05-08 11:00:00 135 mm[Hg] Common [facility] blood pressure diastolic 2022-05-08 11:00:00 64 mm[Hg] [facility] height 2022-03-20 09:40:00 65.00 [in_i] Com [facility] weight 2022-03-20 09:40:00 185.0 [lb_av] Co [facility] [place] temperature 2022-03-20 09:40:00 98.2 [degF] Com [facility] bmi 2022-03-20 09:40:00 30.78 kg/m2 Comm on [facility] oximetry 2022-03-20 09:40:00 96 % Commo n [facility] respiratory rate 2022-03-20 09:40:00 16 /min Common [facility] blood pressure systolic 2022-03-20 09:40:00 122 mm[Hg] Common [facility] blood pressure diastolic 2022-03-20 09:40:00 70 mm[Hg] [facility] height 2022-02-03 11:00:00 65.00 [in_i] Com [facility] weight 2022-02-03 11:00:00 185.8 [lb_av] Co mmon [facility] temperature 2022-02-03 11:00:00 98.1 [degF] Com [facility] bmi 2022-02-03 11:00:00 30.92 kg/m2 Comm on [facility] oximetry 2022-02-03 11:00:00 95 % Commo n [facility] respiratory rate 2022-02-03 11:00:00 16 /min Common [facility] blood pressure systolic 2022-02-03 11:00:00 136 mm[Hg] [facility] blood pressure diastolic 2022-02-03 11:00:00 72 mm[Hg] Common [facility] height 2022-01-15 09:00:00 65.00 [in_i] Com [facility] weight 2022-01-15 09:00:00 185.6 [lb_av] [facility] 2022-01-15 09:00:00 97.6 [degF] Com [facility] bmi 2022-01-15 09:00:00 30.88 kg/m2 Comm on [facility] oximetry 2022-01-15 09:00:00 98 % Commo n [facility] respiratory rate 2022-01-15 09:00:00 16 /min Common [facility] blood pressure systolic 2022-01-15 09:00:00 153 mm[Hg] Common [facility] blood pressure diastolic 2022-01-15 09:00:00 80 mm[Hg] Common [facility] height 2021-11-03 09:40:00 65.00 [in_i] Com [facility] weight 2021-11-03 09:40:00 188.6 [lb_av] Co [facility] [place] temperature 2021-11-03 09:40:00 98.3 [degF] Com [facility] bmi 2021-11-03 09:40:00 31.38 kg/m2 Comm on [facility] oximetry 2021-11-03 09:40:00 96 % Commo n [facility] respiratory rate 2021-11-03 09:40:00 16 /min [facility] blood pressure systolic 2021-11-03 09:40:00 135 mm[Hg] [facility] blood pressure diastolic 2021-11-03 09:40:00 78 mm[Hg] [facility] height 2021-08-01 09:00:00 65.00 [in_i] Com [facility] weight 2021-08-01 09:00:00 186 [lb_av] Comm on [facility] temperature 2021-08-01 09:00:00 98.2 [degF] Com [facility] bmi 2021-08-01 09:00:00 30.95 kg/m2 Comm on [facility] oximetry 2021-08-01 09:00:00 99 % Commo n [facility] respiratory rate 2021-08-01 09:00:00 16 /min [facility] blood pressure systolic 2021-08-01 09:00:00 136 mm[Hg] Common [facility] blood pressure diastolic 2021-08-01 09:00:00 82 mm[Hg] [facility] height 2021-08-01 09:20:00 65.00 [in_i] Com [facility] weight 2021-08-01 09:20:00 186 [lb_av] Comm on [facility] temperature 2021-08-01 09:20:00 98.2 [degF] Com [facility] bmi 2021-08-01 09:20:00 30.95 kg/m2 Comm on [facility] oximetry 2021-08-01 09:20:00 99 % Commo n [facility] blood pressure systolic 2021-08-01 09:20:00 136 mm[Hg] Common [facility] blood pressure diastolic 2021-08-01 09:20:00 82 mm[Hg] [facility] height 2021-07-08 13:40:00 65.00 [in_i] Com [facility] weight 2021-07-08 13:40:00 184 [lb_av] Comm on [facility] bmi 2021-07-08 13:40:00 30.62 kg/m2 Comm on [facility] height 2021-04-22 08:40:00 65.00 [in_i] Com [facility] weight 2021-04-22 08:40:00 184 [lb_av] Comm on [facility] temperature 2021-04-22 08:40:00 98.1 [degF] Com [facility] bmi 2021-04-22 08:40:00 30.62 kg/m2 Comm on [facility] oximetry 2021-04-22 08:40:00 96 % Commo n [facility] respiratory rate 2021-04-22 08:40:00 16 /min [facility] blood pressure systolic 2021-04-22 08:40:00 138 mm[Hg] [facility] blood pressure diastolic 2021-04-22 08:40:00 74 mm[Hg] [facility] Procedures Procedure Date / Time Performed Performing Clinicia n Source INTUBATION 2022-10-26 15:11:57 Logan Phelps [facility] HAND MASS EXCISION 2022-10-26 14:47:00 Etta Hsu [facility] NERVE BLOCK 2022-10-26 13:12:34 Farshad Thomas [facility] CONSENT/REFUSAL FOR DIAGNOSIS AND TREATMENT 2022-10-26 12:24:09 Doctor Unassigned, [facility] CONSENT/REFUSAL FOR DIAGNOSIS AND TREATMENT 2022-10-26 12:24:09 Doctor Unassigned, [place] ASSIGNMENT OF BENEFITS 2022-10-26 12:23:15 Docto r Unassigned, [facility] EXTERNAL PROVIDER RECORDS 2022-10-21 05:01:00 Doctor Unassigned, [place] EXTERNAL PROVIDER RECORDS 2022-10-01 05:01:00 Doctor Unassigned, [facility] REFERRAL- REQUEST/RESPONSE 2022-09-11 06:01:00 Doctor Unassigned, [place] XR HAND 3+ VW RIGHT 2022-09-02 15:12:59 Etta Hsu [facility] XR WRIST 3+ VW RIGHT 2022-09-02 15:12:47 Adrian Hsu [facility] ASSIGNMENT OF BENEFITS 2022-09-02 14:41:23 Docto r Unassigned, [facility] Encounters Start Date/Time End Date/Time Encounter Type Admission Type Attending [facility] Care Department Encounter ID Source 2024-07-31 10:16:00 Outpatient Chan Oscar [facility] [id number] [facility] 2024-02-14 07:46:00 Outpatient [facility] [id number] [facility] 2023-05-06 12:21:00 Outpatient Chan Oscar [facility] [id number] [facility] 2023-05-05 11:30:00 Outpatient Chan Oscar [facility] [id number] [facility] 2022-11-06 15:04:00 Outpatient Stefanie Jones [facility] [id number] [facility] 2022-09-09 09:20:00 Outpatient Lyric Sorenson [facility] [id number] [facility] 2022-09-08 14:51:01 Outpatient Yas, Lyric [facility] [id number] [facility] 2022-07-27 10:05:01 Outpatient ESTELLA Na [facility] [id number] [facility] 2022-07-24 10:53:00 Outpatient SORIA, Na [facility] [id number] [facility] 2022-07-23 13:21:01 Outpatient SORIA, Na [facility] [id number] [facility] 2022-07-13 09:59:00 Outpatient Stefanie SORIA [facility] [id number] [facility] 2022-07-10 08:47:01 Outpatient ESTELLA Na [facility] [id number] [facility] 2022-06-15 13:26:00 Outpatient Estella, Stefanie [facility] [id number] [facility] 2022-05-06 14:03:00 Outpatient Stefanie Soria [facility] [id number] [facility] 2022-03-19 11:49:00 Outpatient Stefanie Soria [facility] [id number] [facility] 2022-03-18 09:34:00 Outpatient Stefanie Soria [facility] [id number] [facility] 2022-01-12 09:06:01 Outpatient Soria, Na [facility] [id number] [facility] 2021-08-01 08:48:01 Outpatient Soria, Na [facility] [id number] [facility] 2021-07-30 13:28:17 Outpatient Soria, Na [facility] [id number] [facility] 2021-07-30 13:26:32 Outpatient Soria, Na [facility] [id number] [facility] 2021-07-30 13:26:05 Outpatient Soria, Na [facility] [id number] [facility] 2021-07-30 13:25:32 Outpatient Soria, Na [facility] [id number] [facility] 2021-07-30 12:53:17 Outpatient Soria, Na [facility] [id number] [facility] 2021-07-30 12:51:48 Outpatient Soria, Na [facility] [id number] [facility] 2021-07-30 12:20:36 Outpatient Soria, Na [facility] [id number] [facility] 2021-07-30 12:19:58 Outpatient Soria, Na [facility] [id number] [facility] 2021-07-30 11:56:26 Outpatient Soria, Na [facility] [id number] [facility] 2021-07-30 11:55:39 Outpatient Soria, Na [facility] [id number] [facility] 2021-07-30 11:17:46 Outpatient Soria, Na [facility] [id number] [facility] 2021-07-30 11:16:50 Outpatient Soria, Na [facility] [id number] [facility] 2021-07-30 11:01:20 Outpatient Soria, Na [facility] [id number] [facility] 2021-07-30 11:01:04 Outpatient Soria, Na [facility] [id number] [facility] 2021-07-30 11:00:28 Outpatient Stefanie Soria [facility] [id number] [facility] 2025-03-09 00:00:00 2025-03-09 00:00:00 (TEL) [facility] [id number] [facility] 2025-03-08 00:00:00 2025-03-08 00:00:00 OFFICE VISIT ESTAB PT LEVEL 4 [facility] [id number] [facility] 2025-03-06 00:00:00 2025-03-06 00:00:00 (TEL) [facility] [id number] [facility] 2025-02-15 00:00:00 2025-02-15 00:00:00 OFFICE VISIT ESTAB PT LEVEL 4 [facility] [id number] [facility] 2024-12-19 00:00:00 2024-12-19 00:00:00 OFFICE VISIT ESTAB PT LEVEL 3 [facility] [id number] [facility] 2024-12-05 00:00:00 2024-12-05 00:00:00 OFFICE VISIT ESTAB PT LEVEL 3 [facility] [id number] [facility] 2024-12-04 00:00:00 2024-12-04 00:00:00 (TEL) [facility] [id number] [facility] 2024-11-21 00:00:00 2024-11-21 00:00:00 (TEL) [facility] [id number] [facility] 2024-11-17 00:00:00 2024-11-17 00:00:00 (TEL) [facility] [id number] [facility] 2024-11-15 00:00:00 2024-11-15 00:00:00 OFFICE VISIT ESTAB PT LEVEL 4 [facility] [id number] [facility] 2024-08-25 00:00:00 2024-08-25 00:00:00 (TEL) [facility] [id number] [facility] 2024-08-18 00:00:00 2024-08-18 00:00:00 OFFICE VISIT ESTAB PT LEVEL 4 [facility] [id number] [facility] 2024-08-18 00:00:00 2024-08-18 00:00:00 SUB ANNUAL MCR WELLNESS VISIT [facility] [id number] [facility] 2024-07-31 00:00:00 2024-07-31 00:00:00 (TEL) [facility] [id number] [facility] 2024-02-16 00:00:00 2024-02-16 00:00:00 OFFICE VISIT ESTAB PT LEVEL 4 [facility] [id number] [facility] 2023-11-16 00:00:00 2023-11-16 00:00:00 OFFICE VISIT ESTAB PT LEVEL 4 [facility] [id number] [facility] 2023-11-09 00:00:00 2023-11-09 00:00:00 OFFICE VISIT ESTAB PT LEVEL 4 [facility] [id number] [facility] 2023-10-21 13:30:00 2023-10-21 13:30:00 Outpatient DIMAS HUMPHRIES [id number] Kim Yang 2023-08-11 00:00:00 2023-08-11 00:00:00 OFFICE VISIT ESTAB PT LEVEL 4 [facility] [id number] [facility] 2023-08-11 00:00:00 2023-08-11 00:00:00 SUB ANNUAL MCR WELLNESS VISIT [facility] [id number] [facility] 2023-08-05 00:00:00 2023-08-05 00:00:00 Outpatient CIRO BOSS [id number] Kim Yang 2023-07-16 00:00:00 2023-07-16 00:00:00 (TEL) [facility] [id number] [facility] 2023-05-21 11:40:00 2023-05-21 11:40:00 Outpatient CIRO BOSS [id number] [facility] 2023-05-21 00:00:00 2023-05-21 00:00:00 Outpatient CIRO BOSS [id number] [facility] 2023-05-06 00:00:00 2023-05-06 00:00:00 OFFICE VISIT ESTAB PT LEVEL 4 [facility] [id number] [facility] 2023-05-05 09:25:00 2023-05-05 09:25:00 Outpatient LAB53 KIM ROGERS [id number] [facility] 2023-04-30 15:55:00 2023-04-30 15:55:00 Outpatient LAB53 KIM ROGERS [id number] [facility] 2023-04-30 15:00:00 2023-04-30 15:00:00 Outpatient CIRO BOSS [id number] [facility] 2023-04-28 00:00:00 2023-04-28 00:00:00 Outpatient DIMAS HUMPHRIES [id number] [facility] 2023-04-21 14:00:00 2023-04-21 14:00:00 Outpatient LAB90 KIM ROGERS [id number] [facility] 2023-04-21 13:30:00 2023-04-21 13:30:00 Outpatient PREZADIMAS Bliss [id number] [facility] 2023-04-15 00:00:00 2023-04-15 00:00:00 Outpatient DIMAS HUMPHRIES [id number] [facility] 2023-04-15 00:00:00 2023-04-15 00:00:00 Outpatient DIMAS HUMPHRIES [id number] [facility] 2023-04-15 00:00:00 2023-04-15 00:00:00 Outpatient PREZASDIMAS [id number] Kim Yang 2023-04-13 00:00:00 2023-04-13 00:00:00 Outpatient PREZAS, DIMAS ROGERS [id number] Kim Yang 2023-04-12 08:30:00 2023-04-12 08:30:00 Outpatient LAB90 KIM ROGERS [id number] Kim Yang 2023-03-31 00:00:00 2023-03-31 00:00:00 Outpatient PREZAS, DIMAS ROGERS [id number] Kim Yang 2023-01-19 13:30:00 2023-01-19 13:30:00 Outpatient PREZAS, DIMAS ROGERS KIM [id number] Kim Yang 2023-01-13 00:00:00 2023-01-13 00:00:00 Outpatient PREZASDIMAS KIM [id number] Kim Yang 2023-01-12 08:00:00 2023-01-12 08:00:00 Outpatient LAB90 KIM ROGERS [id number] Kim Yang 2022-12-28 00:00:00 2022-12-28 00:00:00 Outpatient PREZAS, DIMAS ROGERS KIM [id number] Kim Yang 2022-12-17 14:30:00 2022-12-17 14:30:00 Outpatient PREZASDIMAS KIM [id number] [facility] 2022-12-10 11:20:00 2022-12-10 11:20:00 Outpatient IZABELA MONTEZ [facility] [id number] [facility] 2022-11-10 09:40:00 2022-11-10 10:00:00 Office Visit Izabela Agustin [facility] 1.2.840.114 350.1.13.10 4.2.7.2.686 [id number] [facility] 2022-11-10 09:40:00 2022-11-10 09:40:00 Outpatient IZABELA MONTEZ [facility] [id number] [facility] 2022-10-27 00:00:00 2022-10-27 00:00:00 Nurse Triage Romana Ortiz [facility] 1.2.840.114 350.1.13.10 4.2.7.2.686 [id number] [facility] 2022-10-26 07:23:00 2022-10-26 12:30:00 Hospital Encounter Shadi [facility] 1.2840.114 350.1.13.10 4.2.7.2.686 [id number] [facility] 2022-10-26 07:23:00 2022-10-26 12:30:00 Outpatient R SHADI [facility] [id number] [facility] 2022-10-26 09:57:00 2022-10-26 11:33:00 Anesthesia Event [facility] 1.2840.114 350.1.13.10 4.2.7.2.686 [id number] [facility] 2022-10-26 09:39:00 2022-10-26 10:47:00 Surgery [facility] AT [facility] 1.2840.114 350.1.13.10 4.2.7.2.686 [id number] [facility] 2022-10-26 00:00:00 2022-10-26 00:00:00 Orders Only Doctor Unassigned, [place] [facility] 1.2.840.114 350.1.13.10 4.2.7.2.686 [id number] [facility] 2022-10-21 10:00:00 2022-10-21 10:37:44 Outpatient Ana M [facility]SU [facility] [id number] [facility] 2022-10-21 10:00:00 2022-10-21 10:37:44 Office Visit Etat Hsu [facility] 1.2.840.114 350.1.13.10 4.2.7.2.686 [id number] [facility] 2022-10-21 00:00:00 2022-10-21 00:00:00 Orders Only Doctor Unassigned, [place] [facility] 1.2.840.114 350.1.13.10 4.2.7.2.686 [id number] [facility] 2022-10-01 00:00:00 2022-10-01 00:00:00 Orders Only Doctor Unassigned, [place] [facility] 1.2.840.114 350.1.13.10 4.2.7.2.686 [id number] [facility] 2022-09-11 00:00:00 2022-09-11 00:00:00 Orders Only Doctor Unassigned, [place] [facility] 1.2.840.114 350.1.13.10 4.2.7.2.686 [id number] [facility] 2022-09-09 00:00:00 2022-09-09 00:00:00 (TEL) [facility] [id number] [facility] 2022-09-04 00:00:00 2022-09-04 00:00:00 (TEL) [facility] [id number] [facility] 2022-09-04 00:00:00 2022-09-04 00:00:00 (TEL) [facility] [id number] [facility] 2022-09-03 14:43:59 2022-09-03 14:43:59 Outpatient [facility] [id number] Alexys Montiel 2022-09-02 09:00:11 2022-09-02 23:59:00 Hospital Encounter Etta Hsu [facility] 1.2.840.114 350.1.13.10 4.2.7.2.686 [id number] [facility] 2022-09-02 10:00:00 2022-09-02 10:00:00 Office Visit Etta Hsu [facility] 1.2.840.114 350.1.13.10 4.2.7.2.686 [id number] [facility] 2022-09-02 09:00:03 2022-09-02 09:00:00 Outpatient R PRABHAKARBOOKER ETTA [facility] [id number] [facility] 2022-09-02 09:00:00 2022-09-02 09:00:00 Hospital Encounter Etta Hsu [facility] 1.2.840.114 350.1.13.10 4.2.7.2.686 [id number] [facility] 2022-09-02 00:00:00 2022-09-02 00:00:00 Telephone Shadi [facility] 1.2.840.114 350.1.13.10 4.2.7.2.686 [id number] [facility] 2022-09-02 00:00:00 2022-09-02 00:00:00 Orders Only Doctor Unassigned, [place] [facility] 1.2.840.114 350.1.13.10 4.2.7.2.686 [id number] [facility] 2022-07-29 00:00:00 2022-07-29 00:00:00 OFFICE VISIT EST PT LEVEL 3 [facility]C [facility] [id number] [facility] 2022-07-29 00:00:00 2022-07-29 00:00:00 (TEL) [facility]C [facility] [id number] [facility] 2022-07-23 00:00:00 2022-07-23 00:00:00 (TEL) STL[facility]C [facility] [id number] [facility] 2022-07-13 00:00:00 2022-07-13 00:00:00 OFFICE VISIT NEW PT LEVEL 3 [facility]LMLC [facility]C [id number] [facility] 2022-06-17 00:00:00 2022-06-17 00:00:00 (TEL) [facility] [id number] [facility] 2022-06-05 00:00:00 2022-06-05 00:00:00 (TEL) [facility]C [facility] [id number] [facility] 2022-05-22 00:00:00 2022-05-22 00:00:00 (TEL) [facility]C [facility] [id number] [facility] 2022-05-20 00:00:00 2022-05-20 00:00:00 (TEL) [facility]C [facility]C [id number] [facility] 2022-05-08 00:00:00 2022-05-08 00:00:00 OFFICE VISIT ESTAB PT LEVEL 4 STLMLC [facility]C [id number] [facility] 2022-04-28 00:00:00 2022-04-28 00:00:00 (TEL) [facility]C [facility] [id number] [facility] 2022-03-23 00:00:00 2022-03-23 00:00:00 (TEL) [facility]C [facility]C [id number] [facility] 2022-03-20 00:00:00 2022-03-20 00:00:00 OFFICE VISIT EST PT LEVEL 3 [facility]C [facility] [id number] [facility] 2022-03-12 00:00:00 2022-03-12 00:00:00 (TEL) STL[facility]C [facility]C [id number] [facility] 2022-03-10 00:00:00 2022-03-10 00:00:00 (TEL) [facility]C [facility]C [id number] [facility] 2022-02-03 00:00:00 2022-02-03 00:00:00 OFFICE VISIT ESTAB PT LEVEL 4 [facility]LMLC ST[facility]C [id number] [facility] 2022-02-03 00:00:00 2022-02-03 00:00:00 (TEL) STL[facility]C [facility]C [id number] [facility] 2022-01-15 00:00:00 2022-01-15 00:00:00 OFFICE VISIT NEW PT LEVEL 2 STLMLC ST[facility]C [id number] [facility] 2022-01-07 00:00:00 2022-01-07 00:00:00 (TEL) STLMLC [facility] [id number] [facility] 2021-11-03 00:00:00 2021-11-03 00:00:00 OFFICE VISIT ESTAB PT LEVEL 4 STLMLC ST[facility]C [id number] [facility] 2021-10-13 00:00:00 2021-10-13 00:00:00 (TEL) STLMLC [facility]C [id number] [facility] 2021-08-01 00:00:00 2021-08-01 00:00:00 OFFICE VISIT EST PT LEVEL 3 [facility]C [facility] [id number] [facility] 2021-08-01 00:00:00 2021-08-01 00:00:00 SUB ANNUAL [facility] WELLNESS VISIT ST[facility] [id number] [facility] 2021-07-23 00:00:00 2021-07-23 00:00:00 (COVID Inj) COVID Injection [facility]LMLC [facility] [id number] [facility] 2021-07-18 00:00:00 2021-07-18 00:00:00 (TEL) STLMLC [facility]C [id number] [facility] 2021-07-08 00:00:00 2021-07-08 00:00:00 (TEL) STLMLC ST[facility]C [id number] [facility] 2021-07-08 00:00:00 2021-07-08 00:00:00 OL DIG E/M C 11-20 MIN STLMLC ST[facility]C [id number] [facility] 2021-04-22 00:00:00 2021-04-22 00:00:00 OFFICE VISIT ESTAB PT LEVEL 4 [facility]C [facility]C [id number] [facility] 2020-10-21 00:00:00 2020-10-21 00:00:00 Outpatient [facility]MLC [facility] [id number] [facility] 2020-10-17 00:00:00 2020-10-17 00:00:00 Outpatient [facility]LMLC [facility] [id number] [facility] 2020-07-18 00:00:00 2020-07-18 00:00:00 Outpatient STLMLC [facility] [id number] [facility] 2020-05-17 00:00:00 2020-05-17 00:00:00 Outpatient STLMLC [facility] [id number] [facility] 2020-04-23 00:00:00 2020-04-23 00:00:00 Outpatient [facility]C [facility] [id number] [facility] 2020-04-12 00:00:00 2020-04-12 00:00:00 Outpatient STLMLC [facility] [id number] [facility] 2020-04-08 00:00:00 2020-04-08 00:00:00 Outpatient STLMLC [facility] [id number] [facility] 2020-02-08 11:00:00 2020-02-08 11:00:00 [facility] [id number] [facility] 2020-01-04 15:30:00 2020-01-04 15:30:00 [facility] [id number] [facility] 2019-10-20 09:40:00 2019-10-20 09:40:[address] [facility] [id number] [facility] 2019-09-14 08:15:00 2019-09-14 08:15:[address] [facility] [id number] [facility] 2019-07-21 08:20:00 2019-07-21 08:20:[address] [facility] [id number] [facility] 2019-05-26 14:00:00 2019-05-26 14:00:00 [facility] [id number] [facility] 2019-04-20 11:00:00 2019-04-20 11:00:00 [facility] [id number] [facility] 2019-04-17 16:07:00 2019-04-17 16:07:[address] [facility] [id number] [facility] 2019-02-24 09:20:00 2019-02-24 09:20:[address] [facility] [id number] [facility] 2019-01-04 13:50:00 2019-01-04 13:50:[address] [facility] [id number] [facility] 2019-01-02 13:21:00 2019-01-02 13:21:[address] [facility] [id number] [facility] 2018-09-28 10:45:00 2018-09-28 10:45:[address] [facility] [id number] [facility] 2018-09-12 11:55:00 2018-09-12 11:55:[address] [facility] [id number] [facility] 2018-08-22 08:30:00 2018-08-22 08:30:[address] [facility] [id number] [facility] 2018-07-21 13:51:00 2018-07-21 13:51:[address] [facility] [id number] [facility] 2018-07-21 09:00:00 2018-07-21 09:00:[address] [facility] [id number] [facility] 2018-06-23 16:01:00 2018-06-23 16:01:[address] [facility] [id number] [facility] 2018-06-09 10:45:00 2018-06-09 10:45:[address] [facility] [id number] [facility] 2018-02-22 11:00:00 2018-02-22 11:00:[address] [facility] [id number] [facility] 2018-02-03 09:30:00 2018-02-03 09:30:[address] [facility] [id number] [facility] Results Test Description Test Time Test Comments Results Result Co mments Source Notes Date/Time Note Provider Source 2023-01-19 13:28:18 Formatting of this n ote might be different from the original. Patient is here for a HRA [facility]
[2025-04-07] MEDS ORDERED: NA CHLORIDE 0.9% 1,000 ML ONE ×3 (17:37→22:16)
[2025-04-07 17:50] LABS: Absolute Lymphocytes (CBC) 1.0 K/uL (0.7-4.9); Hematocrit 33.8 % (39.6-49.0); Hemoglobin 12.0 g/dL (13.6-17.9); MCH 30.5 pg (27.0-35.0); MCHC 35.6 g/dL (32.0-36.0); MCV 85.5 fL (80-100); MPV 8.8 fL (7.6-11.3); Nucleated RBC Absolute Count 0.0 (0-0); Nucleated Red Blood Cells % 0.1 % (0-0); RBC Red Blood Cell Count 3.95 M/uL (4.33-5.43); White Blood Count 10.30 thou/uL (4.3-10.9)
--- NOTE | 2025-04-07 17:54 | RAD REPORT ---
Procedure: Chest Single View HISTORY: Cough COMPARISON: February 2025 FINDINGS: The lungs appear clear of acute infiltrate. No significant pleural effusion noted. The heart is mildly enlarged. Sclerotic rib and right clavicular lesions likely blastic metastases.
[2025-04-07 17:58] LABS: PT Prothrombin Time 16.1 SECONDS (10-13.0); PTT, Activated Partial Thromb 29.3 SECONDS (27.2-37.4); Protime INR 1.44
[2025-04-07 18:09] LABS: ALT/SGPT 17.0 U/L (16-61); AST/SGOT 21.0 U/L (15-37); Albumin 3.1 g/dL (3.4-5.0); Albumin/Globulin Ratio 0.6 (1.1-1.8); Alkaline Phosphatase 578.0 U/L (45-117); Anion Gap 10.4 mEq/L (5.0-15.0); BUN Blood Urea Nitrogen 20.0 mg/dL (7-18); Globulin 5.3 g/dL (2.3-3.5); Glucose Level 120.0 mg/dL (74-106); NT PRO-BNP 1101.0 pg/mL (<450); Potassium 3.4 mEq/L (3.5-5.1); Troponin High Sensitivity 34.1 pg/mL (<58.9)
[2025-04-07 18:09] LABS: Influenza A Ag Negative; Influenza B Ag Negative; SARS-CoV-2 Antigen Rapid Res Negative (Negative)
[2025-04-07] MEDS ORDERED: LIDOCAINE VISCOUS 2% 10ML ORAL SOLN ONE (18:27)
[2025-04-07] MEDS ORDERED: MAGNES/ALUMIN/SIMET 30ML UCUP ONE (18:27)
[2025-04-07] MEDS ORDERED: FENTANYL CITR 100 MCG/2 ML ONE (18:27)
[2025-04-07 19:03] LABS: Sqamous Epithelial <5 /HPF (None Seen); Urine Culture Reflex Order NOT NEEDED; Urine Microscopic Reflex YN ORDER UMIC; Urine WBC Clump Rare /HPF (None Seen)
--- NOTE | 2025-04-07 19:16 | RAD REPORT ---
EXAMINATION: CT ABDOMEN AND PELVIS WITHOUT CONTRAST CLINICAL INDICATION: Prostate cancer. Abdominal pain TECHNIQUE: CT abdomen and pelvis was performed, as per department protocol. IV contrast and oral was not administered.Axial, sagittal and coronal reconstructions were obtained. One or more of the following dose reduction techniques were used: Automated exposure control, adjustment of the mA and/o r kV according to the patient size, and/or iterative reconstruction. Unless otherwise specified, incidental findings do not require dedicated imaging follow-up. [id number]. COMPARISON: February 2025. FINDINGS: The lack of intravenous and oral contrast limits evaluation of solid organs, vessels and bowel. Subcentimeter right lower lobe pulmonary nodule unchanged. Small hepatic cysts.. Cholecystectomy Spleen, pancreas, kidneys and left adrenal gland grossly normal. 1.2 cm low-density right adrenal nodule unchanged consistent with an adenoma. Hounsfield unit 6. Hatr catheter is present within the bladder. Prostate gland moderately to markedly enlarged. An abscess is not seen although evaluation limited se condary lack of IV contrast administration. Small bilateral hernias. Subacute mild pathologic compression fracture T12 vertebral body without significant change. Blastic metastases scattered throughout the bones. Avascular necrosis right femoral head. No evidence of diverticulitis IMPRESSION: No abscess visualized. Blastic metastases without significant change.
[2025-04-07] MEDS ORDERED: CEFTRIAXONE 1000 MG/VIAL ONE (19:30)
[2025-04-07] MEDS ORDERED: POTASSIUM 25 MEQ EFFERV TAB ONE (19:30)
--- NOTE | 2025-04-07 19:37 | ER ---
Nurse's Notes [facility] Name: Claude Ren Age: 79 yrs Sex: Male : 1945 Arrival Date: 04/07/2025 Time: 16:31 Bed 7 Private MD: Diagnosis: Fever presenting with conditions classified elsewhere;UTI/ Urinary tract infection, site not specified Presentation: 04/07 16:50 Chief complaint: Patient states: s/p prostate biopsy on Wednesday, Wednesday patient was me1 dx w/UTI and started Bactrim. This morning started having fever and n/v. Coronavirus screen: Vaccine status: Patient reports receiving the 2nd dose of the covid vaccine. Ebola Screen: No symptoms or risks identified at this time. Initial Sepsis Screen: Does the patient meet any 2 criteria? HR > 90 bpm. Does the patient have a suspected source of infection? No. Patient's initial sepsis screen is negative. Risk Assessment: Do you want to hurt yourself or someone else? Patient reports no desire to harm self or others. Onset of symptoms is unknown. 16:50 Method Of Arrival: Ambulatory fl1 16:50 Acuity: MAREK 2 me1 Historical: - Allergies: 16:53 No Known Allergies; me1 - PMHx: 16:53 Glaucoma; Hypertension; prostate cancer (Unknown); me1 - PSHx: 16:53 Cholecystectomy; right wrist; me1 - Immunization history:: Adult Immunizations up to date. - Infectious Disease History:: Denies. - Social history:: Smoking status: Patient denies any tobacco usage or history of. Screenin:[address] [facility] ED Fall Risk Assessment (Adult) History of falling in the last 3 months, aa5 including since admission No falls in past 3 months (0 pts) Confusion or Disorientation No (0 pts) Intoxicated or Sedated No (0 pts) Impaired Gait No (0 pts) Mobility Assist Device Used No (0 pt) Altered Elimination No (0 pt) Score/Fall Risk Level 0 - 2 = Low Risk Oriented to surroundings, Maintained a safe environment, Educated pt \T\ family on fall prevention, incl call for assistance when getting out of bed, Assessed \T\ reinforced patient's understanding of fall precautions. Abuse screen: Denies threats or abuse. Nutritional screening: No deficits noted. Tuberculosis screening: No symptoms or risk factors identified. 19:[address] [facility] ED Fall Risk Assessment (Adult) History of falling in the last 3 months, tb4 including since admission No falls in past 3 months (0 pts) Confusion or Disorientation No (0 pts) Intoxicated or Sedated No (0 pts) Impaired Gait Yes (1 pt) Mobility Assist Device Used Yes (1 pt) Altered Elimination No (0 pt) Score/Fall Risk Level 0 - 2 = Low Risk Maintained a safe environment, Educated pt \T\ family on fall prevention, incl call for assistance when getting out of bed. Abuse screen: Denies threats or abuse. Denies injuries from another. Nutritional screening: No deficits noted. Tuberculosis screening: No symptoms or risk factors identified. Assessment: 16:55 General: Appears comfortable, Behavior is calm, cooperative. Pain: Complains of pain in aa5 suprapubic area Pain currently is 0 out of 10 on a pain scale. Neuro: Level of Consciousness is awake, alert, obeys commands, Oriented to person, place, time, situation, Appropriate for age. Cardiovascular: Heart tones S1 S2 present Rhythm is sinus tachycardia. Respiratory: Airway is patent Respiratory effort is even, unlabored, Respiratory pattern is regular, symmetrical. GI: Abdomen is round non-distended, Bowel sounds present X 4 quads. Abd is soft and non tender X 4 quads. : Reports pain in suprapubic area with urination, dysuria. EENT: No signs and/or symptoms were reported regarding the EENT system. Derm: Skin is dry, Skin is normal, Skin temperature is hot. Musculoskeletal: Range of motion: intact in all extremities. 17:30 Neuro: Level of Consciousness is awake, alert, obeys commands, Oriented to person, aa5 place, time, situation. Respiratory: Airway is patent Respiratory effort is even, unlabored, Respiratory pattern is regular, symmetrical. Derm: Skin is dry, Skin is normal, Skin temperature is hot. 18:00 Reassessment: Pt c/o indigestion and suprapubic pain, provider was notified. . aa5 18:40 Reassessment: Patient is alert, oriented x 3, equal unlabored respirations, skin aa5 warm/dry/pink. Pt back from CT scan . 19:47 Reassessment: Patient states feeling better. Patient states symptoms have improved. tb4 General: Appears in no apparent distress. comfortable, Behavior is calm, cooperative. Pain: Denies pain. Neuro: Level of Consciousness is awake, alert, obeys commands, Oriented to person, place, time, situation, Fire Management Officer are equal bilaterally Moves all extremities. Full function Gait is steady, Speech is normal, Facial symmetry appears normal. Respiratory: Airway is patent Respiratory effort is even, unlabored, Respiratory pattern is regular, symmetrical. GI: No signs and/or symptoms were reported involving the gastrointestinal system. : urgency Reports urinary frequency. EENT: No signs and/or symptoms were reported regarding the EENT system. Derm: Skin is intact, Skin is dry, Skin is normal. Musculoskeletal: Circulation, motion, and sensation intact. Range of motion: intact in all extremities. 21:46 Reassessment: Patient suddenly became flushed, diaphoretic, anxious, confused, climbing tb4 out of bed and has uncontrollable shaking. Spoke with Hospitalist and he gave verbal orders. General: Appears uncomfortable, Behavior is agitated, anxious, restless, confused. Pain: Denies pain. Neuro: Level of Consciousness is awake, alert, confused, Oriented to person, Fire Management Officer are equal bilaterally Moves all extremities. Full function Speech is normal. Respiratory: Airway is patent Respiratory effort is labored, Respiratory pattern is tachypnea Breath sounds with wheezes bilaterally. : Hart in place to gravity drainage Reports urinary frequency, since 04/06/25. Musculoskeletal: Circulation, motion, and sensation intact. Range of motion:. 04/08 00:30 Reassessment: Patient is alert, oriented x 3, equal unlabored respirations, skin tb4 warm/dry/pink. Patient states symptoms have improved. General: Appears comfortable, Behavior is quiet. Respiratory: Airway is patent Respiratory effort is even, unlabored, Respiratory pattern is regular, symmetrical, Breath sounds with wheezes bilaterally. : Hart in place to gravity drainage urine output 90 ml. 01:00 Reassessment: Heparin drips on hold until CT results are back. tb4 01:44 Reassessment: Patient transferred to ICU. tb4 Vital Signs: 04/07 16:50 BP 122 / 57; Pulse 133; Resp 19; Temp 99.2; Pulse Ox 97% ; Weight 83.46 kg; Height 5 me1 ft. 6 in. ; Pain 0/10; 17:30 BP 129 / 62; Pulse 120; Resp 20 S; Temp 99.9(O); Pulse Ox 98% on R/A; aa5 19:47 BP 139 / 56; Pulse 124; Resp 17; Temp 98.9(O); Pulse Ox 99% on R/A; Pain 0/10; tb4 21:23 BP 138 / 70; Pulse 110; Resp 18; Pulse Ox 98% on R/A; Pain 0/10; tb4 21:34 BP 138 / 70; Pulse 149; Resp 27; Temp 101.6(O); Pulse Ox 100% ; tb4 22:00 BP 165 / 77; Pulse 166; Resp 24; Pulse Ox 98% on 2 lpm NC; tb4 23:00 Temp 98.2(O); tb4 23:00 BP 165 / 104; Pulse 166; Resp 31; Pulse Ox 100% on 2 lpm NC; tb4 04/08 00:00 BP 109 / 89; Pulse 137; Resp 23; Pulse Ox 100% on 2 lpm NC; tb4 00:40 BP 97 / 47; Pulse 115; Resp 19; Pulse Ox 94% on 2 lpm NC; tb4 04/07 16:50 Body Mass Index 29.70 (83.46 kg, 167.64 cm) me1 04/07 16:50 Pain Scale: Adult me1 19:47 Pain Scale: Adult tb4 21:23 Pain Scale: Adult tb4 ED Course: 04/07 16:34 Patient arrived in ED. ts1 16:35 [facility]. cp 16:35 Xander Senior MD is Attending Physician. cp 16:53 Triage completed. me1 16:53 Arm band placed on Patient placed in an exam room. me1 16:55 Patient has correct armband on for positive identification. Placed in gown. Bed in low aa5 position. Call light in reach. Side rails up X2. Client placed on continuous cardiac and pulse oximetry monitoring. NIBP monitoring applied. canvas goods maker on. Pulse ox on. NIBP on. 17:14 Chest Single View XRAY In Process Unspecified. EDMS 17:17 Robbin Alcala Jr, RN is Primary Nurse. nh2 17:20 Inserted saline lock: 20 gauge in right antecubital area, using aseptic technique. aa5 Flushed with 10 mL NS. 17:20 No provider procedures requiring assistance completed. aa5 18:34 CT Abd/Pelvis - Without Contrast In Process Unspecified. EDMS 18:40 Straight cath inserted, using sterile technique, 16 Fr. Specimen obtained. aa5 19:00 Report given to JOSELIN Moore and JOSELIN Urbina. aa5 19:36 Dario Goodrich RN is Hospitalizing Provider. cp 19:47 Warm blanket given. change bedding. tb4 19:47 Initial lab(s) drawn, by ED staff, sent to lab. tb4 23:20 Hart cath inserted, using sterile technique, 16 Fr., by fl, balloon inflated, to tb4 gravity drainage. Administered Medications: 17:42 Drug: NS 0.9% IV 1000 ml IV at 1 bolus Per protocol; to be given as a bolus over 60 aa5 minutes Route: IV; Rate: 1 bolus; Site: right antecubital; 18:42 Follow up: IV Status: Completed infusion; IV Intake: 1000ml aa5 18:40 Drug: GI Cocktail without - (Maalox PO 30 ml, Lidocaine Mucous Membrane 2 % 15 aa5 ml) PO once Route: PO; 19:00 Follow up: Response: No adverse reaction aa5 18:40 Drug: fentaNYL (PF) IVP 25 mcg IVP once Route: IVP; Site: right antecubital; aa5 18:45 Follow up: Response: No adverse reaction aa5 19:45 Drug: Potassium PO Effervescent Tablet 25 mEq PO once; dissolve in 4 ounces of water or tb4 juice Route: PO; 21:14 Follow up: Response: No adverse reaction tb4 19:46 Drug: Rocephin IV 1 grams IV at calculated rate once; Given slow IV push per pharmacy tb4 instructions Route: IV; Rate: calculated rate; Site: right antecubital; 21:13 Follow up: Response: No adverse reaction; IV Status: Completed infusion tb4 19:52 Drug: NS 0.9% IV 1000 ml IV at 1000 ml once; to be given as a bolus over 60 minutes tb4 Route: IV; Rate: 1000 ml; Site: right antecubital; 21:24 Follow up: Response: No adverse reaction; IV Status: Completed infusion tb4 21:57 Drug: Acetaminophen PO 1000 mg PO once Route: PO; tb4 23:16 Follow up: Response: No adverse reaction; Temperature is decreased tb4 22:08 Drug: Ativan IVP 0.5 mg IVP once Route: IVP; Site: right antecubital; tb4 23:17 Follow up: Response: No adverse reaction; Anxiety unchanged tb4 22:23 Drug: Levalbuterol Inhalation 1.25 mg Inhalation once Route: Inhalation; tb4 04/08 00:27 Follow up: Response: No adverse reaction tb4 04/07 22:23 Drug: Ibuprofen PO 800 mg PO once Route: PO; tb4 23:19 Follow up: Response: No adverse reaction tb4 22:24 Drug: Haloperidol IVP 2.5 mg/50 mL 2.5 mg IVP once; Place patient on a driver service technician tb4 Route: IVP; Site: right antecubital; 23:18 Follow up: Response: No adverse reaction; Anxiety unchanged tb4 22:44 Drug: NS 0.9% IV 1000 ml IV at 250 ml/hr once; to be given at 250 ml / hour Route: IV; tb4 Rate: 250 ml/hr; Site: right antecubital; 22:56 Drug: Ativan IVP 1 mg IVP once Route: IVP; Site: right antecubital; tb4 04/08 00:26 Follow up: Response: No adverse reaction; Anxiety unchanged; RASS: Alert and Calm (0) tb4 00:03 Drug: Geodon IM 10 mg IM once Route: IM; Site: left deltoid; tb4 00:27 Follow up: Response: No adverse reaction; Anxiety decreased; RASS: Drowsy (-1) tb4 01:31 Drug: Ondansetron IVP 4 mg IVP once; over 2 minutes Route: IVP; Site: right antecubital;tb4 06:46 Follow up: Response: No adverse reaction; Nausea is decreased tb4 06:45 Not Given (Physician Discretion): [id number] units IV at bolus once tb4 06:45 Not Given (Physician Discretion): Heparin (DVT/PE Drip) - ([id number] units, [id number] tb4 ml) 18 units/kg/hr IV at calculated rate Per protocol; Max initial rate 1800 units/hr Medication: 04/07 19:16 VIS not applicable for this client. aa5 Point of Care Testing: Blood Glucose: 04/08 00:40 Blood Glucose: 146 mg/dL; tb4 Ranges: Intake: 04/07 18:42 IV: 1000ml; Total: 1000ml. aa5 Outcome: 19:37 Decision to Hospitalize by Provider. imracle 04/08 01:40 Patient left the ED. vk Signatures: Dispatcher [employer] Kezia Georges, RN RN aa5 Sergio Banks PA-C PA-Lori Collazo cp, PAS PAS ts1 Bette Mcdermott RN RN fl1 Naty Rich Robbin Alcala Jr, RN RN [facility] Teresa Aguilera RN RN tb4 Corrections: (The following items were deleted from the chart) 04/07 19:17 17:30 BP 129 / 62; Pulse 120bpm; Resp 20bpm; Spontaneous; Pulse Ox 98% RA; aa5 aa5 23:16 22:57 Reassessment: tb4 tb4
--- NOTE | 2025-04-07 19:37 | EDPHYS ---
Physician Documentation [facility] Name: Claude Ren Age: 79 yrs Sex: Male : 1945 Arrival Date: 04/07/2025 Time: 16:31 Bed 7 Private MD: ED Physician Xander Senior HPI: 04/07 17:00 This 79 yrs old Male presents to ER via Ambulatory with complaints of Fever. cp 17:00 The patient reports fever, started this morning. cp 17:00 Associated signs and symptoms: Pertinent positives: decreased urine output and urinary cp frequency. 17:00 Severity of symptoms: in the emergency department the symptoms are unchanged despite cp home interventions. Patient is a 79-year-old male with metastatic prostate cancer who presents to the emergency department with complaints of fever that started this morning. Patient reports he had a prostate biopsy procedure done by Dr. Pyle this past Wednesday. He has been taking oral Bactrim antibiotic for UTI since Wednesday. Patient complains of decreased urine output and urinary frequency and a fever that started this morning. Historical: - Allergies: 16:53 No Known Allergies; me1 - PMHx: 16:53 Glaucoma; Hypertension; prostate cancer (Unknown); me1 - PSHx: 16:53 Cholecystectomy; right wrist; me1 - Immunization history:: Adult Immunizations up to date. - Infectious Disease History:: Denies. - Social history:: Smoking status: Patient denies any tobacco usage or history of. ROS: 17:05 Constitutional: Positive for fever, cp 17:05 : Positive for urinary frequency, small amounts, difficulty urinating, cp 17:05 Cardiovascular: Negative for chest pain, edema, palpitations, cp 17:05 Eyes: Negative for injury, pain, redness, and discharge, cp 17:05 ENT: Negative for drainage from ear(s), ear pain, sore throat, difficulty swallowing, difficulty handling secretions, 17:05 Respiratory: Negative for cough, shortness of breath, wheezing, 17:05 Abdomen/GI: Negative for abdominal pain, vomiting, diarrhea, constipation, 17:05 Neuro: Negative for altered mental status, dizziness, headache, numbness, weakness, 17:05 All other systems are negative, Exam: 17:05 Head/Face: Normocephalic, atraumatic. cp 17:05 Constitutional: The patient appears in no acute distress, alert, awake, non-diaphoretic, non-toxic, well developed, well nourished, 17:05 Eyes: Periorbital structures: appear normal, Conjunctiva: normal, no exudate, no injection, Sclera: no appreciated abnormality, Lids and lashes: appear normal, bilaterally, 17:05 ENT: External ear(s): are unremarkable, Nose: is normal, Mouth: Lips: moist, Oral mucosa: moist, Posterior pharynx: is normal, airway is patent, no erythema, no exudate, 17:05 Neck: ROM/movement: Meningeal signs: are not present, nuchal rigidity, is not appreciated, 17:05 Chest/axilla: Inspection: normal, 17:05 Cardiovascular: Rate: tachycardic, Rhythm: regular, Edema: is not appreciated, JVD: is not appreciated, 17:05 Respiratory: the patient does not display signs of respiratory distress, Respirations: normal, no use of accessory muscles, no retractions, labored breathing, is not present, Breath sounds: are clear throughout, no decreased breath sounds, no stridor, no wheezing, 17:05 Abdomen/GI: Inspection: abdomen appears normal, Bowel sounds: active, all quadrants, Palpation: soft, in all quadrants, mild abdominal tenderness, in the suprapubic area, 17:05 Skin: cellulitis, is not appreciated, no rash present. 17:05 Neuro: Orientation: to person, place \T\ time. Mentation: able to follow commands, Motor: moves all fours, strength is normal, Sensation: is normal, 17:12 ECG was reviewed by the Attending Physician. cp Vital Signs: 16:50 BP 122 / 57; Pulse 133; Resp 19; Temp 99.2; Pulse Ox 97% ; Weight 83.46 kg; Height 5 me1 ft. 6 in. ; Pain 0/10; 17:30 BP 129 / 62; Pulse 120; Resp 20 S; Temp 99.9(O); Pulse Ox 98% on R/A; aa5 19:47 BP 139 / 56; Pulse 124; Resp 17; Temp 98.9(O); Pulse Ox 99% on R/A; Pain 0/10; tb4 21:23 BP 138 / 70; Pulse 110; Resp 18; Pulse Ox 98% on R/A; Pain 0/10; tb4 21:34 BP 138 / 70; Pulse 149; Resp 27; Temp 101.6(O); Pulse Ox 100% ; tb4 22:00 BP 165 / 77; Pulse 166; Resp 24; Pulse Ox 98% on 2 lpm NC; tb4 23:00 Temp 98.2(O); tb4 23:00 BP 165 / 104; Pulse 166; Resp 31; Pulse Ox 100% on 2 lpm NC; tb4 10 00:00 BP 109 / 89; Pulse 137; Resp 23; Pulse Ox 100% on 2 lpm NC; tb4 00:40 BP 97 / 47; Pulse 115; Resp 19; Pulse Ox 94% on 2 lpm NC; tb4 04/07 16:50 Body Mass Index 29.70 (83.46 kg, 167.64 cm) me1 04/07 16:50 Pain Scale: Adult me1 19:47 Pain Scale: Adult tb4 21:23 Pain Scale: Adult tb4 MDM: 04/07 16:40 Medical Screening Exam initiated 18:00 Differential diagnosis: UTI, urine retention, sepsis, septic shock, sever sepsis, pyelonephritis, prostatitis. 19:40 Data reviewed: vital signs, nurses notes, radiologic studies, CT scan, and as a result, I will admit patient. 19:40 I considered the following discharge prescriptions or medication management in the emergency department Medications were administered in the Emergency Department. See MAR. Independent interpretation of the following test(s) in the Emergency Department EKG: See my EKG interpretation above. Care significantly affected by the following chronic conditions: Hypertension, Cancer. Counseling: I had a detailed discussion with the patient and/or guardian regarding the historical points, exam findings, and any diagnostic results supporting the discharge/admit diagnosis, lab results, radiology results, the need for further work-up and treatment in the hospital. Response to treatment: the patient's symptoms have mildly improved after treatment. 04/07 16:54 Order name: BNP; Complete Time: 18:17 04/07 18:17 Interpretation: Reviewed. 04/07 16:54 Order name: Blood Culture Adult (2) 04/07 16:54 Order name: CBC with Diff; Complete Time: 18:17 04/07 18:17 Interpretation: Normal except: RBC 3.95; HGB 12.0; HCT 33.8; RDW 15.6; LINDA% 86.8; LYM% cp 9.4; NEUT A 9.0. 04/07 16:54 Order name: CMP; Complete Time: 18:17 cp 04/07 18:17 Interpretation: Normal except: NA 130; K 3.4; GLUC 120; BUN 20; CRE 1.54; GFR 46; ALK cp 578; TP 8.4; ALB 3.1; GLOB 5.3; A/G 0.6. 04/07 16:54 Order name: Lactate w/ 2H reflex if indic.; Complete Time: 18:17 cp 04/07 16:54 Order name: Protime (+inr); Complete Time: 18:17 cp 04/07 16:54 Order name: Ptt, Activated; Complete Time: 18:17 cp 04/07 16:54 Order name: Troponin HS; Complete Time: 18:17 cp 04/07 16:54 Order name: COVID-19 Ag + Flu A+B Ag; Complete Time: 18:17 cp 04/07 16:56 Order name: UA Rfx Nawaf Cult if indicated; Complete Time: 19:17 cp 04/07 19:17 Interpretation: Normal except: UCLA Turbid; UBLD 3+; UPROT 1+; UUROB 3+; UESTR 75; URBC cp 21-50. 04/07 21:18 Order name: UA Rfx Nawaf Cult if indicated EDMS 04/07 21:18 Order name: CBC with Automated Diff EDMS 04/07 21:18 Order name: CBC with Automated Diff EDMS 04/07 21:18 Order name: CBC with Automated Diff EDMS 04/07 21:18 Order name: CBC with Automated Diff EDMS 04/07 21:18 Order name: Comprehensive Metabolic Panel EDMS 04/07 21:18 Order name: Comprehensive Metabolic Panel EDMS 04/07 21:18 Order name: Comprehensive Metabolic Panel EDMS 04/07 21:18 Order name: Comprehensive Metabolic Panel EDMS 04/07 21:18 Order name: Magnesium EDMS 04/07 21:18 Order name: Magnesium EDMS 04/07 21:18 Order name: Magnesium EDMS 04/07 21:18 Order name: Magnesium EDMS 04/07 22:28 Order name: D-Dimer; Complete Time: 23:21 EDMS 04/07 23:22 Order name: Lactate w/ 2H reflex if indic.; Complete Time: 00:57 EDMS 04/08 00:12 Order name: ABG lg3 10 00:33 Order name: ABG Arterial Blood Gas; Complete Time: 00:57 EDMS 04/08 00:51 Order name: Glucose, Ancillary Testing; Complete Time: 00:57 EDMS 04/08 01:22 Order name: Ghost Lactate-NO COLLECT Timer EDMS 04/07 16:54 Order name: Chest Single View XRAY; Complete Time: 18:17 cp 04/07 18:19 Order name: CT Abd/Pelvis - Without Contrast; Complete Time: 19:27 cp 04/07 23:58 Order name: CT Head Brain wo Cont kl 04/07 16:54 Order name: Accucheck; Complete Time: 17:36 cp 04/07 16:54 Order name: Cardiac monitoring; Complete Time: 17:36 cp 04/07 16:54 Order name: EKG - Nurse/Tech; Complete Time: 17:06 cp 04/07 16:54 Order name: IV Saline Lock - Large Bore; Complete Time: 17:36 cp 04/07 16:54 Order name: Labs collected and sent; Complete Time: 17:36 cp 04/07 16:54 Order name: O2 Per Protocol; Complete Time: 17:36 cp 04/07 16:54 Order name: O2 Sat Monitoring; Complete Time: 17:36 cp 04/07 16:54 Order name: Vital Signs; Complete Time: 17:36 cp 04/07 19:14 Order name: Straight Cath - Urine: VO at 1800; Complete Time: 19:14 aa5 04/07 22:16 Order name: Hart; Complete Time: 22:45 sp4 EC:12 Rate is 127 beats/min. Rhythm is regular. WI interval is normal. QRS interval is cp normal. QT interval is normal. T waves are Inverted in lead aVR. Interpreted by me. Reviewed by me. Administered Medications: 17:42 Drug: NS 0.9% IV 1000 ml IV at 1 bolus Per protocol; to be given as a bolus over 60 aa5 minutes Route: IV; Rate: 1 bolus; Site: right antecubital; 18:42 Follow up: IV Status: Completed infusion; IV Intake: 1000ml aa5 18:40 Drug: GI Cocktail without - (Maalox PO 30 ml, Lidocaine Mucous Membrane 2 % 15 aa5 ml) PO once Route: PO; 19:00 Follow up: Response: No adverse reaction aa5 18:40 Drug: fentaNYL (PF) IVP 25 mcg IVP once Route: IVP; Site: right antecubital; aa5 18:45 Follow up: Response: No adverse reaction aa5 19:45 Drug: Potassium PO Effervescent Tablet 25 mEq PO once; dissolve in 4 ounces of water or tb4 juice Route: PO; 21:14 Follow up: Response: No adverse reaction tb4 19:46 Drug: Rocephin IV 1 grams IV at calculated rate once; Given slow IV push per pharmacy tb4 instructions Route: IV; Rate: calculated rate; Site: right antecubital; 21:13 Follow up: Response: No adverse reaction; IV Status: Completed infusion tb4 19:52 Drug: NS 0.9% IV 1000 ml IV at 1000 ml once; to be given as a bolus over 60 minutes tb4 Route: IV; Rate: 1000 ml; Site: right antecubital; 21:24 Follow up: Response: No adverse reaction; IV Status: Completed infusion tb4 21:57 Drug: Acetaminophen PO 1000 mg PO once Route: PO; tb4 23:16 Follow up: Response: No adverse reaction; Temperature is decreased tb4 22:08 Drug: Ativan IVP 0.5 mg IVP once Route: IVP; Site: right antecubital; tb4 23:17 Follow up: Response: No adverse reaction; Anxiety unchanged tb4 22:23 Drug: Levalbuterol Inhalation 1.25 mg Inhalation once Route: Inhalation; tb4 04/08 00:27 Follow up: Response: No adverse reaction tb4 04/07 22:23 Drug: Ibuprofen PO 800 mg PO once Route: PO; tb4 23:19 Follow up: Response: No adverse reaction tb4 22:24 Drug: Haloperidol IVP 2.5 mg/50 mL 2.5 mg IVP once; Place patient on a cardiac exercise specialist tb4 Route: IVP; Site: right antecubital; 23:18 Follow up: Response: No adverse reaction; Anxiety unchanged tb4 22:44 Drug: NS 0.9% IV 1000 ml IV at 250 ml/hr once; to be given at 250 ml / hour Route: IV; tb4 Rate: 250 ml/hr; Site: right antecubital; 22:56 Drug: Ativan IVP 1 mg IVP once Route: IVP; Site: right antecubital; tb4 04/08 00:26 Follow up: Response: No adverse reaction; Anxiety unchanged; RASS: Alert and Calm (0) tb4 00:03 Drug: Geodon IM 10 mg IM once Route: IM; Site: left deltoid; tb4 00:27 Follow up: Response: No adverse reaction; Anxiety decreased; RASS: Drowsy (-1) tb4 01:31 Drug: Ondansetron IVP 4 mg IVP once; over 2 minutes Route: IVP; Site: right antecubital;tb4 06:46 Follow up: Response: No adverse reaction; Nausea is decreased tb4 06:45 Not Given (Physician Discretion): [id number] units IV at bolus once tb4 06:45 Not Given (Physician Discretion): Heparin (DVT/PE Drip) - ([id number] units, [id number] tb4 ml) 18 units/kg/hr IV at calculated rate Per protocol; Max initial rate 1800 units/hr Point of Care Testing: Blood Glucose: 00:40 Blood Glucose: 146 mg/dL; tb4 Ranges: Critical Glucose Levels:Adult <50 mg/dl or >400 mg/dl <40 mg/dl or >180 mg/dl Disposition Summary: 04/07/25 19:37 Hospitalization Ordered Notes: Hospitalization Status: Inpatient Admission cp Provider: Dario Goodrich cp Condition: Stable cp Problem: new cp Symptoms: have improved cp Bed/Room Type: Standard Location: Intensive Care Unit(04/07/25 23:55) Room Assignment: 6-(04/07/25 23:55) Diagnosis - Fever presenting with conditions classified elsewhere cp - UTI/ Urinary tract infection, site not specified cp Forms: - Medication Reconciliation Form cp - SBAR form cp - Leadership Thank You Letter cp Signatures: Dispatcher [employer] Pauly Rodrigues RN RN kl Calderon, Audri, RN RN aa5 Sergio Banks PA-C PAShannen Harringtno cp, RN RN lg3 Marito Gilbert MD MD sp4 Bette Mcdermott RN RN me1 Hilario, Naty vk Brown, Teresa, RN RN tb4 Corrections: (The following items were deleted from the chart) 04/07 16:54 16:54 PROBNP+C.LAB.BRZ ordered. EDMS EDMS 16:54 16:54 BLOOD CULTURE*+BA.LAB.BRZ ordered. EDMS EDMS 16:54 16:54 CBC+H.LAB.BRZ ordered. EDMS EDMS 16:54 16:54 COMPREHENSIVE METABOLIC PANEL+C.LAB.BRZ ordered. EDMS EDMS 16:54 16:54 LACTATE+C.LAB.BRZ ordered. EDMS EDMS 16:54 16:54 PROTIME (+INR)+COAG.LAB.BRZ ordered. EDMS EDMS 16:54 16:54 PTT, ACTIVATED+COAG.LAB.BRZ ordered. EDMS EDMS 16:54 16:54 Troponin High Sensitivity+C.LAB.BRZ ordered. EDMS EDMS 16:54 16:54 COVID-19 Ag + Flu A+B Ag+I.LAB.BRZ ordered. EDMS EDMS 16:55 16:54 Chest Single View+RAD.RAD.BRZ ordered. EDMS EDMS 18:25 16:56 Bladder Scanner ordered. cp iw 21:05 19:37 cp vk 22:06 22:06 D-DIMER+COAG.LAB.BRZ ordered. EDMS EDMS 23:55 19:37 Telemetry/MedSurg (Inpatient) cp kl 23:55 21:05 216 vk kl 10 01:19 04/07 17:00 Patient is a 79-year-old male with metastatic prostate cancer who presents cp to the emergency department with complaints of fever that started this morning. Patient reports he had a prostate biopsy procedure done by Dr. Pyle this past Wednesday. He has been taking oral Bactrim antibiotic for UTI since . Patient complains of decreased urine output and urinary frequency and a fever that started this morning. cp
[2025-04-07] MEDS: PANTOPRAZOLE 40 MG INJ IVP ONE (21:17)
[2025-04-07] MEDS ORDERED: SODIUM CHLORIDE 0.9% 10ML INJ IV PRN (21:17)
--- NOTE | 2025-04-07 21:19 | P.HP ---
Certification for Inpatient Patient admitted to: Inpatient With expected LOS: >2 Midnights Patient will require the following post-hospital care: None Practitioner: I am a practitioner with admitting privileges, knowledge of patient current condition, hospital course, and medical plan of care. Services: Services provided to patient in accordance with Admission requirements found in Title 42 Section 412.3 of the Code of Federal Regulations Patient History Date of Service: 04/07/25 Reason for admission: Sepsis due to UTI History of Present Illness: Patient is a 79-year-old male with past medical history of metastatic prostate cancer, essential hypertension, glaucoma, GERD, brought to the ER today due to fever, urinary symptoms and chills. Patient daughter states on Wednesday of this week, patient went to see Dr. Pyle who did biopsy of the patient prostate, and at the time patient was found to have UTI and was then started on Bactrim. Patient brought to the ER today, due to fever, and chills. Patient denies having associated chest pain or shortness of breath. When I saw patient in ER initially for admission, patient was fully awake, alert and oriented x 3, able to communicate appropriately, and follows all commands appropriately. Patient was not in any acute respiratory distress, or disoriented.. Patient was initially admitted for urinary tract infection regular floor, and his initial lactic acid at the time was 1.6. After patient was admitted, he was pending to be transferred to his room, about an hour or plus later, received a call from the ER nurse, that the patient was completely disoriented, agitated, and attempted to get out of bed something which I did not experienced when patient was initially admitted. Patient received 0.5 mg of Ativan IV. Went down and saw the patient later, patient was a completely different individual, he was completely disoriented, not talking coherent, attempted to pull out his Hart catheter, and attempted to get out of bed. Patient was also tachypneic and tachycardia which was also new for the patient compared to when he was initially admitted, did a complete workup on the patient for sepsis, and stroke. Ordered stat lactic acid and was 5.0, D-dimer was 5.842 but unfortunately cannot proceed with CTA of the chest due to patient abnormal creatinine 1.54. Patient blood ga s pH was 7.47. Did order stat CT of the head, and impression: No acute intracranial abnormality. Started patient on heparin infusion for possible PE due to patient elevated D-dimer, and unable to perform CT angio at this time due to patient elevated creatinine. Also broaden patient antibiotic coverage Zosyn 3.375 g every 8 hours. IV NS at 75 mL/ hr. Patient was then transferred to ICU. Repeat lactic acid was down to 1.1. Course in ER. (1) CT abdomen/pelvis without contrast. Impression; (a) no abscess visualized. (b) blastic metastases without significant change. (2) CT head without contrast. Impression: No acute intracranial normality. Allergies No Known Allergies Allergy (Unverified 03/22/16 14:11) - Past Medical/Surgical History -: Prostate metastatic cancer. -: Essential hypertension. -: Glaucoma. -: GERD. -: Cholecystectomy. -: Right wrist surgery. - Family History Brother -: Cancer Notes: prostate - Social History Smoking Status: Former smoker Alcohol use: No CD- Drugs: No Caffeine use: No Place of Residence: Home Review of Systems 10-point ROS is otherwise unremarkable Genitourinary: Other (BPH secondary to prostate cancer.) Physical Examination - Physical Exam General: Alert, In no apparent distress, Oriented x3, Cooperative HEENT: Atraumatic, Normocephalic, PERRLA, Mucous membr. moist/pink, Sclerae nonicteric Neck: Supple, 2+ carotid pulse no bruit, JVD not distended, No Thyromegaly, No LAD, Without JVD or thyroid abnormality Respiratory: Clear to auscultation bilaterally, Normal air movement Cardiovascular: No edema, Normal pulses, Regular rate/rhythm, Normal S1 S2, No gallops, No rubs, No murmurs Capillary refill: <2 Seconds Gastrointestinal: Normal bowel sounds, Soft and benign, Non-distended, W/out hepatomegaly, No ascites, No tenderness, No masses, No rebound, No guarding Musculoskeletal: No clubbing, No swelling, No contractures, No erythema, No tenderness, No warmth Integumentary: No rashes, No breakdown, No significant lesion, No tenderness/swelling, No erythema, No warmth, No cyanosis Neurological: Normal gait, Normal speech, Normal strength at 5/5 x4 extr, Normal tone, Sensation intact, Cranial nerves 3-12 intact, Normal reflexes 2+, Normal affect Lymphatics: No axilla or inguinal lymphadenopathy - Studies Laboratory Data (last 24 hrs) 04/07/25 04/07/25 04/07/25 17:31 17:31 17:31 WBC 10.30 Hgb 12.0 L Hct 33.8 L Plt Count 181 PT 16.1 H INR 1.44 APTT 29.3 Sodium 130 L Potassium 3.4 L BUN 20 H Creatinine 1.54 H Glucose 120 H Total Bilirubin 0.8 AST 21 ALT 17 Alkaline Phosphatase 578 H Male Exam - Male Exam Inguinal exam: No hernias Testicular exam: No masses, Non-tender Assessment and Plan - Plan Patient was initially admitted for UTI none sepsis, but after patient was admi tted his condition completely changed while still in the ER to be transferred to the floor as noted in my history, patient diagnosed was then changed to sepsis due to UTI, and admitted to ICU. (1)Sepsis due to UTI, and possibly PE. After patient was initially admitted, whilst in ER, patient became complete disoriented, agitated, tachypneic, and tachycardia. Patient repeat workup was done initial lactic acid was 1.6 repeat was 5.0, D-dimer 5.842, none was done initially because it was not needed, blood gas pH 7.47. Unfortunately patient cannot have CTA angio done at this time due to elevated renal panel. -Broaden patient antibiotics coverage for Zosyn 3.375 IV every 8 hours for coverage of sepsis. -Ceftriaxone 2 g IV daily for UTI. -IV NS at 75/hr. -Order Levophed due to hypotensive secondary to sepsis. -Order repeat follow-up lactic acid. Went down to 1.1, prior was 5.0. -Order heparin infusion at this time. Patient cannot have CT angiogram done at this time. -Patient admitted to ICU. -Protonix 40 mg IV x 1, followed with Protonix 40 mg daily. Patient has history of GERD and requested medication on admission. -Order BiPAP. -DuoNeb treatment every 6 hours as needed. (2)Explained entire treatment plan to the patient daughters, solicited questions answered and voiced understanding. Discharge Plan: Home Plan to discharge in: Greater than 2 days - Advance Directives Does patient have a Living Will: No Does patient have a Durable POA for Healthcare: No - Code Status/Comfort Care Code Status Assessed: Yes Code Status: Full Code Critical Care: Yes
[2025-04-07] MEDS ORDERED: ACETAMINOPHEN 500 MG TAB ONE (21:22)
[2025-04-07] MEDS ORDERED: LORazepam 2 MG/ML VIAL ONE ×2 (21:36→22:50)
[2025-04-07] MEDS ORDERED: LEVALBUTEROL 1.25 MG/3 ML NEB ONE (22:11)
[2025-04-07] MEDS ORDERED: HALOPERIDOL LACT 5 MG/ML INJ ONE (22:11)
[2025-04-07] MEDS ORDERED: IBUPROFEN 400 MG TAB ONE (22:12)
[2025-04-07] MEDS ORDERED: WATER FOR INJ,STERILE 10 ML ONE (23:58)
[2025-04-07] MEDS ORDERED: HEPARIN/D5W 0 UNIT/0 ML BAG IV ONE (23:58)
[2025-04-07] MEDS ORDERED: HEPARIN 5000 UNIT/ML 1 ML VIAL ONE (23:58)
[2025-04-07] MEDS ORDERED: ZIPRASIDONE MESYLA 20 MG/VIAL IM ONE (23:58)
[2025-04-08 00:33] LABS: Blood O2 Saturation 96.8 % (92.0-98.5)
[2025-04-08] MEDS ORDERED: HEPARIN 5000 UNIT/ML 1 ML VIAL SQ SCH (01:00)
[2025-04-08] MEDS ORDERED: ONDANSETRON 4 MG/2 ML VIAL ONE (01:42)
[2025-04-08] MEDS: NACHLORIDE 0.45% 1,000 ML IV SCH (01:47)
[2025-04-08] MEDS: HEPARIN/D5W 25,000 UNIT/500 ML BAG IV SCH (01:56)
[2025-04-08] MEDS: NOREPINEPHRINE BITARTRATE/D5W 4 MG/250 ML KIT IV ONE (02:02)
[2025-04-08] MEDS: NOREPINEPHRINE 4 MG in D5W 250 ML IV SCH (02:05)
[2025-04-08] MEDS: PIPER TAZO 3.375 GM in NA CHLORIDE 0.9% 100 ML IV SCH (02:41)
[2025-04-08] MEDS: PANTOPRAZOLE 40 MG INJ ONE (03:00)
--- NOTE | 2025-04-08 05:21 | RAD REPORT ---
INDICATION: DECLINING STATE COMPARISON: No existing relevant imaging studies are available TECHNIQUE: Unenhanced CT of the head was performed per protocol. Dose reduction techniques were utilized for this exam including automated exposure control, adjustmen ts to mA and/or kV according to patient's size, and the use of iterative reconstruction techniques. FINDINGS: ACUTE INFARCTION: No. HEMORRHAGE: No. MASS: No. BRAIN: Garza-white matter differentiation is maintained. Mild microangiopathic white matter ischemic c hanges. VENTRICLES / EXTRA-AXIAL SPACES: No hydrocephalus. Generalized cerebral atrophy. BONES: Unremarkable. PARANASAL SINUSES: Unremarkable. IMPRESSION: No acute intracranial abnormality. Electronically signed by: Reynaldo Jacome DO 04/08/2025 01:34 AM CDT RP NR Due to temporary technical issues with the PACS/[employer] reporting system, reports are being zeny d by the in-house radiologist without review as a courtesy to ensure prompt reporting the interpreting radiologist is fully responsible for the content of the report. Transcribed Date/Time: 04/08/2025 5:21 AM
[2025-04-08 05:57] LABS: Absolute Lymphocytes (CBC) 1.5 K/uL (0.7-4.9); Hematocrit 29.9 % (39.6-49.0); Hemoglobin 10.4 g/dL (13.6-17.9); MCH 30.4 pg (27.0-35.0); MCHC 34.8 g/dL (32.0-36.0); MCV 87.5 fL (80-100); MPV 9.6 fL (7.6-11.3); Nucleated RBC Absolute Count 0.0 (0-0); Nucleated Red Blood Cells % 0.0 % (0-0); RBC Red Blood Cell Count 3.41 M/uL (4.33-5.43); White Blood Count 14.30 thou/uL (4.3-10.9)
[2025-04-08 06:14] LABS: ALT/SGPT 15.0 U/L (16-61); AST/SGOT 17.0 U/L (15-37); Albumin 2.5 g/dL (3.4-5.0); Albumin/Globulin Ratio 0.5 (1.1-1.8); Alkaline Phosphatase 455.0 U/L (45-117); Anion Gap 10.6 mEq/L (5.0-15.0); BUN Blood Urea Nitrogen 20.0 mg/dL (7-18); Globulin 4.6 g/dL (2.3-3.5); Glucose Level 184.0 mg/dL (74-106); Magnesium 2.0 mg/dL (1.6-2.4); Potassium 3.6 mEq/L (3.5-5.1)
[2025-04-08] MEDS: PANTOPRAZOLE 40MG TABLET PO SCH (06:30)
[2025-04-08] MEDS: NOREPINEPHRINE 16 MG in D5W 250 ML IV SCH (08:40)
[2025-04-08] MEDS ORDERED: CEFTRIAXONE 2,000 MG in NA CHLORIDE 0.9% 100 ML IV SCH (09:00)
[2025-04-08] MEDS: NA CHLORIDE 0.9% 500 ML IV ONE (10:45)
--- NOTE | 2025-04-08 10:57 | P.PN ---
Subjective Date of Service: 04/08/25 Chief Complaint: Sepsis due to UTI Subjective: Improving (Patient is improving doing well daughter at the bedside however he continues to remain on Levophed due to hypotension denies any complaints) Review of Systems 10-point ROS is otherwise unremarkable Physical Examination - Vital Signs Temperature: 97.9 F Blood Pressure: 100/47 Pulse: 85 Respirations: 22 Pulse Ox (%): 98 - Physical Exam General: In no apparent distress, Oriented x3 Respiratory: Clear to auscultation bilaterally Cardiovascular: No edema, Regular rate/rhythm, Normal S1 S2 Gastrointestinal: Normal bowel sounds, Soft and benign, Non-distended - Studies Laboratory Data (last 24 hrs) 04/07/25 04/07/25 04/07/25 17:31 17:31 17:31 WBC 10.30 Hgb 12.0 L Hct 33.8 L Plt Count 181 PT 16.1 H INR 1.44 APTT 29.3 Sodium 130 L Potassium 3.4 L BUN 20 H Creatinine 1.54 H Glucose 120 H Total Bilirubin 0.8 AST 21 ALT 17 Alkaline Phosphatase 578 H Assessment And Plan - Current Problems (Diagnosis) (1) Sepsis Current Visit: Yes Status: Acute Plan: Patient is 79 years of age admitted with sepsis shock presumed from urinary trac t will plan to continue to fluid bolus and use Levophed if needed continue with Zosyn DC ceftriaxone cultures are pending labs reviewed mild normocytic anemia white count is mildly elevated no acute changes noted on head CT or chest x-ray Qualifiers: Severe sepsis shock status: unspecified
[2025-04-08] MEDS: NA CHLORIDE 0.9% 1,000 ML IV SCH (11:15)
[2025-04-08] MEDS: TAMSULOSIN 0.4 MG SR CAP PO SCH (20:00)
[2025-04-09] MEDS: MELATONIN 3 MG TABLET PO PRN (00:52)
[2025-04-09 05:24] LABS: Absolute Lymphocytes (CBC) 1.8 K/uL (0.7-4.9); Hematocrit 29.9 % (39.6-49.0); Hemoglobin 10.5 g/dL (13.6-17.9); MCH 30.5 pg (27.0-35.0); MCHC 35.0 g/dL (32.0-36.0); MCV 87.2 fL (80-100); MPV 9.6 fL (7.6-11.3); Nucleated RBC Absolute Count 0.0 (0-0); Nucleated Red Blood Cells % 0.0 % (0-0); RBC Red Blood Cell Count 3.43 M/uL (4.33-5.43); White Blood Count 9.00 thou/uL (4.3-10.9)
[2025-04-09 05:40] LABS: ALT/SGPT 15.0 U/L (16-61); AST/SGOT 13.0 U/L (15-37); Albumin 2.1 g/dL (3.4-5.0); Albumin/Globulin Ratio 0.5 (1.1-1.8); Alkaline Phosphatase 388.0 U/L (45-117); Anion Gap 10.5 mEq/L (5.0-15.0); BUN Blood Urea Nitrogen 14.0 mg/dL (7-18); Globulin 4.5 g/dL (2.3-3.5); Glucose Level 100.0 mg/dL (74-106); Magnesium 1.7 mg/dL (1.6-2.4); Potassium 3.5 mEq/L (3.5-5.1)
[2025-04-09] MEDS: MAGNESIUM SULFATE 1 gm IVPB 1 GM/100 ML BAG IV ONE (08:58)
[2025-04-09] MEDS: POTASSIUM CL SA 10 MEQ TAB PO ONE (08:58)
--- NOTE | 2025-04-09 10:55 | P.PN ---
Date of Service: 04/09/25 Subjective: Tachycardic overnight. Blood pressures improved. Discussed with his family at bedside. He states he feels overall much better. Review of Systems 10-point ROS is otherwise unremarkable Genitourinary: Other (BPH secondary to prostate cancer.) Physical Examination - Physical Exam General: Alert, In no apparent distress, Oriented x3, Cooperative HEENT: Atraumatic, Normocephalic, PERRLA, Mucous membr. moist/pink, Sclerae nonicteric Neck: Supple, 2+ carotid pulse no bruit, JVD not distended, No Thyromegaly, No LAD, Without JVD or thyroid abnormality Respiratory: Clear to auscultation bilaterally, Normal air movement Cardiovascular: No edema, Normal pulses, Regular rate/rhythm, Normal S1 S2, No gallops, No rubs, No murmurs Capillary refill: <2 Seconds Gastrointestinal: Normal bowel sounds, Soft and benign, Non-distended, W/out hepatomegaly, No ascites, No tenderness, No masses, No rebound, No guarding Musculoskeletal: No clubbing, No swelling, No contractures, No erythema, No tenderness, No warmth Integumentary: No rashes, No breakdown, No significant lesion, No tenderness/swelling, No erythema, No warmth, No cyanosis Neurological: Normal gait, Normal speech, Normal strength at 5/5 x4 extr, Normal tone, Sensation intact, Cranial nerves 3-12 intact, Normal reflexes 2+, Normal affect Lymphatics: No axilla or inguinal lymphadenopathy - Studies Laboratory Data (last 24 hrs) 04/07/25 04/07/25 04/07/25 17:31 17:31 17:31 WBC 10.30 Hgb 12.0 L Hct 33.8 L Plt Count 181 PT 16.1 H INR 1.44 APTT 29.3 Sodium 130 L Potassium 3.4 L BUN 20 H Creatinine 1.54 H Glucose 120 H Total Bilirubin 0.8 AST 21 ALT 17 Alkaline Phosphatase 578 H Male Exam - Male Exam Inguinal exam: No hernias Testicular exam: No masses, Non-tender Assessment and Plan - Plan Patient was initially admitted for UTI none sepsis, but after patient was admitted his condition completely changed while still in the ER to be transferred to the floor as noted in my history, patient diagnosed was then changed to sepsis due to UTI, and admitted to ICU. 04/09 - Blood cultures with E. coli - Off Levophed, continue Zosyn until sensitivities arrive - Continue IV broad-spectrum antibiotic - Consult infectious disease - Repeat blood cultures until negative - Negative head CT - Concern for PE on admission. Unable to get CTA - Lactic acidosis resolved (1)Sepsis due to UTI, and possibly PE. After patient was initially admitted, whilst in ER, patient became complete disoriented, agitated, tachypneic, and tachycardia. Patient repeat workup was done initial lactic acid was 1.6 repeat was 5.0, D-dimer 5.842, none was done initially because it was not needed, blood gas pH 7.47. Unfortunately patient cannot have CTA angio done at this time due to elevated renal panel. -Broaden patient antibiotics coverage for Zosyn 3.375 IV every 8 hours for coverage of sepsis. -IV NS at 75/hr. -Order Levophed due to hypotensive secondary to sepsis. -Order repeat follow-up lactic acid. Went down to 1.1, prior was 5.0. -Patient admitted to ICU. -Protonix 40 mg IV x 1, followed with Protonix 40 mg daily. Patient has history of GERD and requested medication on admission. -Order BiPAP. -DuoNeb treatment every 6 hours as needed. (2)Explained entire treatment plan to the patient daughters, solicited questions answered and voiced understanding. Discharge Plan: Home Plan to discharge in: Greater than 2 days - Advance Directives Does patient have a Living Will: No Does patient have a Durable POA for Healthcare: No - Code Status/Comfort Care Code Status Assessed: Yes Code Status: Full Code Critical Care: Yes
[2025-04-09] MEDS: CEFTRIAXONE 2,000 MG in NA CHLORIDE 0.9% 100 ML IV SCH (12:54)
--- NOTE | 2025-04-09 13:47 | P.CNS ---
Date of Consult: 04/09/25 reason for consult: Sepsis and bacteremia HPI:Patient is a 79-year-old male with past medical history of metastatic prostate cancer, essential hypertension, glaucoma was brought to ER today due to fever, urinary symptoms and chills. Patient daughter states on WednesdayApr 04, patient went to see Dr. Pyle who did biopsy of the patient prostate, and at the time patient was found to have UTI and was started on Bactrim. About an hour or so After patient was admitted, pt was completely disoriented, and agitated, and incoherent. CT of the head shows No acute intracranial abnormality. CT abdomen and pelvis shows blastic metastases without significant change. Per daughter, pt was suppose to see his oncologist tomorrow for an appt for his bone cancer but pt is in the hospital. Daughter states patient have seen oncology before but does not recall patient getting chemo or radiation. Pt was examined in the ICU today. Very alert and oriented and respond to question appropriately. denied any wounds or metal/catheter device Current Medications Acetaminophen (Acetaminophen 325 Mg Tablet) 650 mg PO Q4HP PRN PRN Reason: TEMP > 100' F Norepinephrine Bitartrate 16 (mg/ Dextrose) 266 mls @ 8.325 mls/hr IV TITR IGNACIO; Protocol Last Titration: 04/08/25 15:20 Dose: 0 mcg/kg/min, 0 mls/hr Sodium Chloride (Ns 1000 Ml Ivbag) 1,000 mls @ 100 mls/hr IV .Q10H IGNACIO Last Admin: 04/09/25 05:57 Dose: 1,000 mls Ceftriaxone Sodium 2,000 mg/ (Sodium Chloride) 100 mls @ 200 mls/hr IV DAILY IGNACIO; Protocol Last Admin: 04/09/25 12:54 Dose: 100 mls Melatonin (Melatonin 3 Mg Tablet) 3 mg PO BEDTIME PRN PRN PRN Reason: INSOMNIA Last Admin: 04/09/25 00:52 Dose: 3 mg Pantoprazole Sodium (Pantoprazole 40mg Tablet) 40 mg PO DAILYAC IGNACIO; Protocol Last Admin: 04/09/25 05:43 Dose: 40 mg Sodium Chloride (Sodium Chloride 0.9% 10ml Inj) 10 ml IV UD PRN PRN Reason: Diluant Tamsulosin HCl (Tamsulosin 0.4 Mg Sr Cap) 0.4 mg PO BEDTIME IGNACIO Last Admin: 04/08/25 20:00 Dose: 0.4 mg ROS: please see hpi Allergies No Known Allergies Allergy (Unverified 03/22/16 14:11) - Past Medical/Surgical History -: Prostate metastatic cancer. -: Essential hypertension. -: Glaucoma. -: GERD. -: Cholecystectomy. -: Right wrist surgery. - Family History Brother -: Cancer Notes: prostate - Social History Smoking Status: Former smoker Alcohol use: No CD- Drugs: No Caffeine use: No - Physical Exam General: Alert, In no apparent distress, Oriented x3, Cooperative HEENT: Atraumatic, Normocephalic, PERRLA, Neck: Supple, Respiratory: Clear to auscultation bilaterally Cardiovascular: RRR Capillary refill: <2 Seconds Gastrointestinal: normal BS, ND, NT Integumentary: No rashes, No breakdown, Neurological: respond to question appropriately Microbiology 04/07/25 17:10 Blood - Blood Gram Stain - Final 04/07/25 17:10 Blood - Blood Aerobic Blood Culture - Preliminary No growth in 24 hours. 04/07/25 17:10 Blood - Blood Anaerobic Blood Culture - Preliminary Escherichia Coli 04/07/25 17:31 Blood - Blood Gram Stain - Final 04/07/25 17:31 Blood - Blood Aerobic Blood Culture - Preliminary Escherichia Coli 04/07/25 17:31 Blood - Blood Anaerobic Blood Culture - Preliminary Escherichia Coli 04/07/25 17:31 Blood - Blood Gram Stain - Final labs: wbc 9. hgb 10.5, plt 130, bun 14, cr 1.03, albumin 2.1 assessment and planning sepsis secondary to E coli bacteremia hx prostate cancer blastic metastases moderate protein calorie malnourishment UA unremarkable. however patient did took bactrim at home before he came to ER. blood culture positive for e coli. recommend switching from zosyn to rocephin. pending susceptibility. order CRP. recommend 2 weeks of abx duration. repeat blood culture until neg. follow up with oncology outpatient after discharge thank you for the consult Dr Junior case discussed and in agreement with Dr varela
[2025-04-09] MEDS: ACETAMINOPHEN 325 MG TABLET PO PRN (16:37)
[2025-04-10 03:27] LABS: Sqamous Epithelial None Seen /HPF (None Seen); Urine Culture Reflex Order REFLEXED; Urine Microscopic Reflex YN ORDER UMIC
[2025-04-10 06:44] VITALS: BMI 31.1
[2025-04-10 07:41] LABS: Absolute Lymphocytes (CBC) 2.0 K/uL (0.7-4.9); Hematocrit 30.0 % (39.6-49.0); Hemoglobin 10.4 g/dL (13.6-17.9); MCH 29.9 pg (27.0-35.0); MCHC 34.5 g/dL (32.0-36.0); MCV 86.6 fL (80-100); MPV 9.5 fL (7.6-11.3); Nucleated RBC Absolute Count 0.0 (0-0); Nucleated Red Blood Cells % 0.0 % (0-0); RBC Red Blood Cell Count 3.47 M/uL (4.33-5.43); White Blood Count 9.00 thou/uL (4.3-10.9)
[2025-04-10 08:00] LABS: ALT/SGPT 18.0 U/L (16-61); AST/SGOT 21.0 U/L (15-37); Albumin 2.0 g/dL (3.4-5.0); Albumin/Globulin Ratio 0.4 (1.1-1.8); Alkaline Phosphatase 393.0 U/L (45-117); Anion Gap 10.3 mEq/L (5.0-15.0); BUN Blood Urea Nitrogen 10.0 mg/dL (7-18); Globulin 4.9 g/dL (2.3-3.5); Glucose Level 89.0 mg/dL (74-106); Magnesium 1.8 mg/dL (1.6-2.4); Potassium 3.3 mEq/L (3.5-5.1)
[2025-04-10] MEDS: LOSARTAN POTASSIUM 50 MG TABLET PO SCH (14:02)
[2025-04-10] MEDS: AMLODIPINE 10 MG TAB PO SCH (14:03)
--- NOTE | 2025-04-10 16:22 | P.PN ---
Subjective Date of Service: 04/10/25 Chief Complaint: Sepsis due to UTI Subjective: No chest pain or shortness of breath. No nausea or vomiting. No abdominal pain. No obvious bleeding. Looks comfortable in the bed. Objective: General appearance: Alert and comfortable CVS: Normal S1 and S2 Lungs: Clear to auscultation bilaterally Abdomen: Soft, bowel sounds present, no tenderness Extremities: No lower extremity edema Physical Examination - Vital Signs Temperature: 98.5 F Blood Pressure: 184/78 Pulse: 102 Respirations: 16 Pulse Ox (%): 99 - Studies Microbiology Data (last 24 hrs): 04/07/25 17:10 Blood - Blood Gram Stain - Final 04/07/25 17:10 Blood - Blood Anaerobic Blood Culture - Final Escherichia Coli 04/07/25 17:31 Blood - Blood Gram Stain - Final 04/07/25 17:31 Blood - Blood Aerobic Blood Culture - Final Escherichia Coli 04/07/25 17:31 Blood - Blood Anaerobic Blood Culture - Final Escherichia Coli 04/07/25 17:31 Blood - Blood Gram Stain - Final Assessment And Plan - Plan Patient was initially admitted for UTI and sepsis (1)Sepsis due to UTI, E. coli bacteremia -Continue IV antibiotics -DC IV fluids - 2. Hypertension: Resume home medications 3. Hypoxia: Wean off oxygen. No shortness of breath. I did discuss all the above plan with the patient and multiple family members at bedside, discussed with ID attending, discharge plan will depending on clinical progress.
[2025-04-11 05:10] LABS: Absolute Lymphocytes (CBC) 1.7 K/uL (0.7-4.9); Hematocrit 29.3 % (39.6-49.0); Hemoglobin 10.3 g/dL (13.6-17.9); MCH 30.3 pg (27.0-35.0); MCHC 35.0 g/dL (32.0-36.0); MCV 86.5 fL (80-100); MPV 9.1 fL (7.6-11.3); Nucleated RBC Absolute Count 0.0 (0-0); Nucleated Red Blood Cells % 0.0 % (0-0); RBC Red Blood Cell Count 3.39 M/uL (4.33-5.43); White Blood Count 7.30 thou/uL (4.3-10.9)
[2025-04-11 05:25] LABS: Anion Gap 9.4 mEq/L (5.0-15.0); BUN Blood Urea Nitrogen 9.0 mg/dL (7-18); Glucose Level 99.0 mg/dL (74-106); Potassium 3.4 mEq/L (3.5-5.1)
[2025-04-11] MEDS: POTASSIUM CL SA 10 MEQ TAB PO ONE (08:42)
[2025-04-11] MEDS ORDERED: LOSARTAN POTASSIUM 50 MG TABLET PO SCH (09:00)
[2025-04-11] MEDS ORDERED: AMLODIPINE 10 MG TAB PO SCH (09:00)
--- NOTE | 2025-04-11 11:26 | P.PN ---
Date of Service: 04/11/25 subjective: no concern or complaints. No fever/chill. pt tolerating abx with no problem objective: Temp Pulse Resp BP Pulse Ox 98.2 F 94 H 20 143/68 H 95 04/11/25 08:00 04/11/25 08:45 04/11/25 08:00 04/11/25 08:45 04/11/25 08:00 - Physical Exam General: Alert, In no apparent distress, Oriented x3, Cooperative HEENT: Atraumatic, Normocephalic, PERRLA, Neck: Supple, Respiratory: Clear to auscultation bilaterally, 2 L NC Cardiovascular: RRR Capillary refill: <2 Seconds Gastrointestinal: normal BS, ND, NT Integumentary: No rashes, No breakdown, Neurological: respond to question appropriately GI: reece Microbiology 04/07/25 17:10 Blood - Blood Gram Stain - Final 04/07/25 17:10 Blood - Blood Aerobic Blood Culture - Preliminary No growth in 24 hours. 04/07/25 17:10 Blood - Blood Anaerobic Blood Culture - Preliminary Escherichia Coli 04/07/25 17:31 Blood - Blood Gram Stain - Final 04/07/25 17:31 Blood - Blood Aerobic Blood Culture - Preliminary Escherichia Coli 04/07/25 17:31 Blood - Blood Anaerobic Blood Culture - Preliminary Escherichia Coli 04/07/25 17:31 Blood - Blood Gram Stain - Final labs: wbc 7.3. hgb 10.3, plt 196, bun 9, cr 0.8, albumin 2.0 assessment and planning sepsis secondary to E coli bacteremia hx prostate cancer blastic metastases moderate protein calorie malnourishment UA unremarkable. however patient did took bactrim at home before he came to ER. blood culture positive for e coli secondary to UTI. continue rocephin. recommend 2 weeks of abx duration. okay with discharging patient home. with cefdinir PO. repeat blood culture until neg. follow up with oncology outpatient after discharge case discussed and in agreement with Dr varela
--- NOTE | 2025-04-11 12:28 | PN ---
Subjective: The patient is sitting in bed. Three daughters are at the bedside. Denies any headache , nausea, vomiting, chest pain, abdominal pain, constipation, or diarrhea. Objective: Vital Signs: Temperature 98, pulse 112, respirations 16, blood pressure 142/75. Lungs: Basal crackles. Heart: S1, S2. Regular. Abdomen: Soft, nontender. Bowel sounds present. Extremities: No edema. Laboratory Data: Shows WBC 9, hemoglobin 10.4, platelets 153. BUN 10, creatinine 0.7. Blood cultur e grew E coli from 04/07, sensitivity pending. The patient is currently on Rocephin. Assessment And Plan: 1. Urosepsis with bacteremia in a patient with history of prostate metastatic cancer on a recent biop sy. Her fever has subsided. Leukocytosis has subsided. 2. Anemia of chronic disease. 3. Monitor signs of infection with WBC and fever trends. No other recommendation at this time. CARSON/YANIV Voice ID: [id number] Report ID: [id number]
--- NOTE | 2025-04-11 15:48 | P.PN ---
Subjective Date of Service: 04/11/25 Chief Complaint: Sepsis due to UTI Subjective: No chest pain or shortness of breath. No nausea or vomiting. No abdominal pain. No obvious bleeding. Looks comfortable in the bed. Objective: General appearance: Alert and comfortable CVS: Normal S1 and S2 Lungs: Clear to auscultation bilaterally Abdomen: Soft, bowel sounds present, no tenderness Extremities: No lower extremity edema Physical Examination - Vital Signs Temperature: 98.3 F Blood Pressure: 132/61 Pulse: 90 Respirations: 18 Pulse Ox (%): 99 - Studies Microbiology Data (last 24 hrs): 04/07/25 17:10 Blood - Blood Gram Stain - Final 04/07/25 17:10 Blood - Blood Anaerobic Blood Culture - Final Escherichia Coli 04/07/25 17:31 Blood - Blood Gram Stain - Final 04/07/25 17:31 Blood - Blood Aerobic Blood Culture - Final Escherichia Coli 04/07/25 17:31 Blood - Blood Anaerobic Blood Culture - Final Escherichia Coli 04/07/25 17:31 Blood - Blood Gram Stain - Final Assessment And Plan - Plan Patient was initially admitted for UTI and sepsis (1)Sepsis due to UTI, E. coli bacteremia -Continue IV antibiotics -DC IV fluids - Dc reece today -ID team ordered repeat blood cultures today. 2. Hypertension: Resume home medications 3. Hypoxia: Wean off oxygen. No shortness of breath. I did discuss all the above plan with the patient and multiple family members at bedside, discussed with ID. DC home tomorrow if repeat blood cultures negative, able to urinate after Reece removal and off oxygen.
[2025-04-12 06:12] LABS: Absolute Lymphocytes (CBC) 2.3 K/uL (0.7-4.9); Hematocrit 30.6 % (39.6-49.0); Hemoglobin 10.7 g/dL (13.6-17.9); MCH 30.3 pg (27.0-35.0); MCHC 35.1 g/dL (32.0-36.0); MCV 86.5 fL (80-100); MPV 8.8 fL (7.6-11.3); Nucleated RBC Absolute Count 0.0 (0-0); Nucleated Red Blood Cells % 0.1 % (0-0); RBC Red Blood Cell Count 3.54 M/uL (4.33-5.43); White Blood Count 7.00 thou/uL (4.3-10.9)
[2025-04-12 06:26] LABS: Anion Gap 8.4 mEq/L (5.0-15.0); BUN Blood Urea Nitrogen 10.0 mg/dL (7-18); Glucose Level 93.0 mg/dL (74-106); Potassium 3.4 mEq/L (3.5-5.1)
[2025-04-12] MEDS: POTASSIUM CL SA 10 MEQ TAB PO ONE (08:34)
[2025-04-12 11:23] VITALS: O2SAT 96
--- NOTE | 2025-04-12 11:57 | P.DS ---
Admission Date: 04/07/25 Discharge Date: 04/12/25 Disposition: ROUTINE DISCHARGE Discharge Condition: GOOD Reason for Admission: Sepsis due to UTI Hospital Course: (1)Sepsis due to UTI, E. coli bacteremia -on IV antibiotics -DC home on oral antibiotics -ID team on board, appreciate recommendations 2. Hypertension: Continue home medications 3. Hypoxia: Weaned off oxygen. No shortness of breath. 4. Metastatic prostate cancer: Follow-up with oncology Hospital course: 79-year-old patient admitted with sepsis secondary to UTI, his blood cultures grew E. coli, he was on ceftriaxone which is sensitive, ID team recommended to discharge the patient to go home on oral cefdinir, when I see the patient today he is doing well without any acute problems and feels ready to go home, he had a Hart catheter placed with the time of admission which was removed yesterday, he is able to urinate after that, he was on little bit of oxygen as well, oxygen was weaned off, he is off oxygen today, otherwise no other acute issues going on so I am planning to discharge him to go home and close follow-up with PCP and oncology. Subjective: No chest pain or shortness of breath. No nausea or vomiting. No abdominal pain. No obvious bleeding. Looks comfortable in the chair. Objective: General appearance: Alert and comfortable CVS: Normal S1 and S2 Lungs: Clear to auscultation bilaterally Abdomen: Soft, bowel sounds present, no tenderness Extremities: No lower extremity edema I did discuss all the above plan with the patient and multiple family members at bedside. Vital Signs/Physical Exam: Temp Pulse Resp BP Pulse Ox 97.7 F 93 H 18 134/60 96 04/12/25 08:00 04/12/25 10:44 04/12/25 08:00 04/12/25 10:44 04/12/25 08:00 Laboratory Data at Discharge: WBC 7.00 thou/uL (4.3-10.9) 04/12/25 05:38 Hgb 10.7 g/dL (13.6-17.9) L 04/12/25 05:38 Hct 30.6 % (39.6-49.0) L 04/12/25 05:38 Plt Count 240 thou/uL (152-406) 04/12/25 05:38 PT 16.1 SECONDS (10-13.0) H 04/07/25 17:31 INR 1.44 04/07/25 17:31 APTT Cancelled 04/08/25 10:00 Sodium 140 mEq/L (136-145) 04/12/25 05:38 Potassium 3.4 mEq/L (3.5-5.1) L 04/12/25 05:38 BUN 10 mg/dL (7-18) 04/12/25 05:38 Creatinine 0.73 mg/dL (0.70-1.30) 04/12/25 05:38 Glucose 93 mg/dL (74-106) 04/12/25 05:38 Magnesium 1.8 mg/dL (1.6-2.4) 04/10/25 07:10 Total Bilirubin 0.5 mg/dL (0.2-1.0) 04/10/25 07:10 AST 21 U/L (15-37) 04/10/25 07:10 ALT 18 U/L (16-61) 04/10/25 07:10 Alkaline Phosphatase 393 U/L (45-117) H 04/10/25 07:10 Home Medications: Amlodipine [Norvasc*] 10 mg PO DAILY 04/08/25 Codeine/APAP [Tylenol #3*] 1 tab PO Q8H PRN 04/08/25 Cyclobenzaprine HCl [Flexeril] 5 mg PO BEDTIME 04/08/25 Losartan Potassium 100 mg PO DAILY 04/08/25 Cefdinir [Cefdinir*] 300 mg PO BID #24 cap 04/12/25 Tamsulosin [Flomax*] 0.4 mg PO BEDTIME #30 cap 04/12/25 New Medications: Cefdinir [Cefdinir*] 300 mg PO BID #24 cap Tamsulosin [Flomax*] 0.4 mg PO BEDTIME #30 cap Diet: AHA Followup: CRIS CISNEROS [Primary Care Provider] - 2-3 Days (Follow-up with PCP in 3 to 5 days with CBC and CMP) Time spent managing pt's care (in minutes): 32
[2025-04-12 13:09] VITALS: BP 136/61; TEMP 98.1
== END 2025-04-12 13:45 | disposition home or self-care (01) | DRG 871 ==
LOC: ER 16:31 → 2ND 20:55 → 3RD-ICU 04-08 01:07 → 4TH 04-10 04:42
PROVIDERS: ADMIT Internal Medicine Sleep Medicine; ATTEND Hospitalist
PROC: 3E033XZ Introduction of Vasopressor into Peripheral Vein, Percutaneous Approach (ICD-10-PCS; 2025-04-07)
PROC: 4A033R1 Measurement of Arterial Saturation, Peripheral, Percutaneous Approach (ICD-10-PCS; principal; 2025-04-08)
PROC: 5A09557 Assistance with Respiratory Ventilation, Greater than 96 Consecutive Hours, Continuous Positive Airway Pressure (ICD-10-PCS; 2025-04-08)
PROC: 0T9B70Z Drainage of Bladder with Drainage Device, Via Natural or Artificial Opening (ICD-10-PCS; 2025-04-11)
DX: A41.51 Sepsis due to Escherichia coli [E. coli] (principal); R65.21 Severe sepsis with septic shock; N39.0 Urinary tract infection, site not specified; C79.82 Secondary malignant neoplasm of genital organs; E87.20 Acidosis, unspecified; C41.9 Malignant neoplasm of bone and articular cartilage, unspecified; E44.0 Moderate protein-calorie malnutrition; I10 Essential (primary) hypertension; K21.9 Gastro-esophageal reflux disease without esophagitis; N40.0 Benign prostatic hyperplasia without lower urinary tract symptoms; D63.8 Anemia in other chronic diseases classified elsewhere; Z11.52 Encounter for screening for COVID-19; Z90.49 Acquired absence of other specified parts of digestive tract; Z87.891 Personal history of nicotine dependence; Z68.29 Body mass index [BMI] 29.0-29.9, adult
CPT/HCPCS: 36415; 36600; 51702; 70450; 71045; 74176; 80048; 80053; 81001; 82805; 82947; 83605; 83735; 83880; 84132; 84484; 85025; 85379; 85610; 85730; 86140; 87040; 87077; 87086; 87088; 87186; 87205; 87428; 93005; 94660; 94760; 96361; 96365; 96372; 96375; 97116; 97161; 97530; 99285; J0696; J1630; J1644; J2405; J2470; J2543; J3010; J3475; J3486; J7030; J7040; J7060; J7614